=== PATIENT | male | born 1940 | race American Indian/Alaskan Native ===

== ENCOUNTER 2020-07-26 18:08 | Inpatient (IN) | payer MEDICARE ==
--- NOTE | 2020-07-26 18:30 | Emergency Department Report ---
ED Neuro Deficit HPI - General Stated Complaint: POSS STROKE Time Seen by Provider: 07/26/20 18:14 - History of Present Illness Initial Comments: Who presents with right-sided weakness and confusion. Patient was found by his neighbor in the car unresponsive so he called ambulance. Patient was there for 1 week his blood glucose was 30 when EMS got there they also heard some crackles on his lungs. Patient denies having any history of any stroke and he currently denies having any pain. - Related Data Allergies/Adverse Reactions: Allergies Allergy/AdvReac Type Severity Reaction Status Date / Time No Known Allergies Allergy Unverified 07/26/20 18:56 ED Review of Systems ROS: Stated complaint: POSS STROKE Other details as noted in HPI Constitutional: weakness. denies: chills, fever Eyes: denies: eye pain, eye discharge, vision change ENT: denies: ear pain, throat pain Respiratory: denies: cough, shortness of breath, wheezing Cardiovascular: denies: chest pain, palpitations Endocrine: no symptoms reported Gastrointestinal: denies: abdominal pain, nausea, diarrhea Genitourinary: denies: urgency, dysuria Musculoskeletal: denies: back pain, joint swelling, arthralgia Skin: denies: rash, lesions Neurological: denies: headache, weakness, paresthesias Psychiatric: denies: anxiety, depression Hematological/Lymphatic: denies: easy bleeding, easy bruising ED Neuro Physical Exam - General General appearance: alert, in no apparent distress Suspected Stroke: Yes - Head Head exam: Present: atraumatic, normocephalic - Eye Eye exam: Present: normal appearance - ENT ENT exam: Present: mucous membranes moist - Neck Neck exam: Present: normal inspection - Respiratory Respiratory exam: Present: normal lung sounds bilaterally. Absent: respiratory distress - Cardiovascular Cardiovascular Exam: Present: regular rate, normal rhythm. Absent: systolic murmur, diastolic murmur, rubs, gallop - GI/Abdominal GI/Abdominal exam: Present: soft, normal bowel sounds - Rectal Rectal exam: Present: deferred - Back Exam Back exam: Present: normal inspection - Neurological Exam Neurological exam: Present: alert, oriented X3 - NIHSS Assessment Interval: Baseline 1a. Level of Consciousness: alert/keenly responsive 1b. LOC Questions: answers 1 question correctly 1c. LOC Commands: performs no tasks correctly 2. Best Gaze: normal 3. Visual: complete hemianopia 4. Facial Palsy: unilateral complete paralysis 5b. Motor Arm Right: no gravity effort 5a. Motor Arm Left: no gravity effort 6a. Motor Leg Left: no drift 6b. Motor Leg Right: no gravity effort 7. Limb Ataxia: present 1 limb 8. Sensory: mild/moderate sensory loss 9. Best Language: no aphasia 10. Dysarthria: mild/moderate dysarthria 11. Extinction/Inattention: visual/tactile inattention Total Score: 21 Stroke Severity: Severe Stroke - Psychiatric Psychiatric exam: Present: normal affect, normal mood - Skin Skin exam: Present: warm, dry, intact, normal color. Absent: rash ED Course Vital Signs 07/26/20 07/26/20 07/26/20 18:56 18:57 19:45 Temperature Pulse Rate 118 H 118 H 73 Respiratory 27 H 27 H 24 Rate Blood Pressure 82/31 Blood Pressure 119/91 [Left] O2 Sat by Pulse 96 94 Oximetry 07/26/20 07/26/20 07/26/20 20:30 20:46 21:01 Temperature Pulse Rate 96 H Respiratory 27 H 21 Rate Blood Pressure 46/26 56/28 46/31 Blood Pressure [Left] O2 Sat by Pulse Oximetry 07/26/20 07/26/20 07/26/20 21:15 21:31 21:45 Temperature Pulse Rate 96 H 91 H 94 H Respiratory 26 H 23 16 Rate Blood Pressure 63/32 63/32 82/40 Blood Pressure [Left] O2 Sat by Pulse Oximetry 07/26/20 07/26/20 07/26/20 22:01 22:15 22:31 Temperature Pulse Rate 93 H 94 H 93 H Respiratory 22 21 22 Rate Blood Pressure 82/40 112/59 110/62 Blood Pressure [Left] O2 Sat by Pulse Oximetry 07/26/20 07/26/20 07/26/20 22:45 23:01 23:15 Temperature Pulse Rate 100 H 94 H 92 H Respiratory 22 22 22 Rate Blood Pressure 109/58 119/45 118/54 Blood Pressure [Left] O2 Sat by Pulse Oximetry 07/26/20 07/26/20 07/26/20 23:25 23:30 23:31 Temperature 97.6 F Pulse Rate 92 H 95 H Respiratory 19 21 Rate Blood Pressure 118/54 107/50 Blood Pressure [Left] O2 Sat by Pulse Oximetry 07/26/20 07/27/2021 23:45 00:01 00:08 Temperature Pulse Rate 93 H 91 H Respiratory 24 22 23 Rate Blood Pressure 98/59 108/49 Blood Pressure [Left] O2 Sat by Pulse Oximetry 07/27/20 07/27/20 00:15 00:31 Temperature Pulse Rate 93 H 98 H Respiratory 22 23 Rate Blood Pressure 100/54 108/48 Blood Pressure [Left] O2 Sat by Pulse Oximetry - Central Line Placement Right IJ Consent Obtained: emergent situation Prep: mask, gown, gloves Central Line Prep: Chlorhexidine scrub Ultrasound Used for Placement: No Central Line Lumen Inserted: triple Reason for Insertion: CV Pressure Monitoring Bloods Obtained for Lab: Yes Central Line Position: good blood return Dressing Applied: Tegaderm Post Procedure X-Ray: tip of catheter in good p Patient Tolerated Procedure: no complications Complications: none - Lab Data Result diagrams: 07/26/20 18:33 07/26/20 18:33 Lab Results 07/26/20 07/26/20 07/26/20 Range/Units 18:33 18:33 18:33 WBC 19.0 H (4.5-11.0) K/mm3 RBC 3.50 L (3.65-5.03) M/mm3 Hgb 12.1 (11.8-15.2) gm/dl Hct 37.0 (35.5-45.6) % MCV 106 H (84-94) fl MCH 35 H (28-32) pg MCHC 33 (32-34) % RDW 14.8 (13.2-15.2) % Plt Count 259 (140-440) K/mm3 Add Manual Diff Complete Total Counted 100 Seg Neutrophils % Casing Worker Seg Neuts % (Manual) 96.0 H (40.0-70.0) % Band Neutrophils % 1.0 % Lymphocytes % (Manual) 3.0 L (13.4-35.0) % Nucleated RBC % Not Reportable Seg Neutrophils # Man 18.2 H (1.8-7.7) K/mm3 Band Neutrophils # 0.2 K/mm3 Lymphocytes # (Manual) 0.6 L (1.2-5.4) K/mm3 Abs React Lymphs (Man) 0.0 K/mm3 Monocytes # (Manual) 0.0 (0.0-0.8) K/mm3 Eosinophils # (Manual) 0.0 (0.0-0.4) K/mm3 Basophils # (Manual) 0.0 (0.0-0.1) K/mm3 Metamyelocytes # 0.0 K/mm3 Myelocytes # 0.0 K/mm3 Promyelocytes # 0.0 K/mm3 Blast Cells # 0.0 K/mm3 WBC Morphology Not Reportable Hypersegmented Neuts Not Reportable Hyposegmented Neuts Not Reportable Hypogranular Neuts Not Reportable Smudge Cells Not Reportable Toxic Granulation Not Reportable Toxic Vacuolation Not Reportable Dohle Bodies Not Reportable Pelger-Huet Anomaly Not Reportable Patrica Rods Not Reportable Platelet Estimate Consistent w auto Clumped Platelets Not Reportable Plt Clumps, EDTA Not Reportable Large Platelets Not Reportable Giant Platelets Not Reportable Platelet Satelliting Not Reportable Plt Morphology Comment Not Reportable RBC Morphology Normal Dimorphic RBCs Not Reportable Polychromasia Not Reportable Hypochromasia Not Reportable Poikilocytosis Not Reportable Anisocytosis Not Reportable Microcytosis Not Reportable Macrocytosis Not Reportable Spherocytes Not Reportable Pappenheimer Bodies Not Reportable Sickle Cells Not Reportable Target Cells Not Reportable Tear Drop Cells Not Reportable Ovalocytes Not Reportable Helmet Cells Not Reportable [place] Bodies Not Reportable [place] Rings Not Reportable Momence Cells Not Reportable Bite Cells Not Reportable Crenated Cell Not Reportable Elliptocytes Not Reportable Acanthocytes (Spur) Not Reportable Rouleaux Not Reportable Hemoglobin C Crystals Not Reportable Schistocytes Not Reportable Malaria parasites Not Reportable Curtis Bodies Not Reportable Hem Pathologist Commnt No PT 22.9 H (12.2-14.9) Sec. INR 1.96 H (0.87-1.13) APTT 42.3 H (24.2-36.6) Sec. ABG pH (7.320-7.450) POC ABG pCO2 (32.0-48.0) mmHg POC ABG pO2 (83-108) mmHg POC ABG HCO3 ABG O2 Saturation (0-100) POC ABG Base Excess ABG Hemoglobin (12.0-17.5) ABG Oxyhemoglobin (94-98) ABG Methemoglobin (0.0-1.5) ABG Sodium (136.0-145.0) mmol/L ABG Potassium (3.40-4.50) mmol/L ABG Chloride (98-107) mmol/L ABG Glucose (65-95) mg/dL Carboxyhemoglobin (0.5-1.5) FiO2 % Sodium 127 L (137-145) mmol/L Potassium 6.0 H (3.6-5.0) mmol/L Chloride 88.4 L (98-107) mmol/L Carbon Dioxide 10 L (22-30) mmol/L Anion Gap 35 mmol/L BUN 84 H (9-20) mg/dL Creatinine 6.0 H (0.8-1.3) mg/dL Estimated GFR 11 ml/min BUN/Creatinine Ratio 14 % Glucose 157 H (75-100) mg/dL POC Glucose (70-105) mg/dL Lactic Acid (0.7-2.0) mmol/L Calcium 8.6 (8.4-10.2) mg/dL Total Bilirubin 0.90 (0.1-1.2) mg/dL AST 948 H (5-40) units/L ALT 292 H (7-56) units/L Alkaline Phosphatase 59 (35-129) units/L Troponin T (0.00-0.029) ng/mL Total Protein 5.2 L (6.3-8.2) g/dL Albumin 2.0 L (3.9-5) g/dL Albumin/Globulin Ratio 0.6 % Triglycerides (2-149) mg/dL Cholesterol (50-199) mg/dL LDL Cholesterol Direct (50-130) mg/dL HDL Cholesterol (40-59) mg/dL Cholesterol/HDL Ratio % Arterial Blood Glucose (65-95) mg/dL Arterial Blood Ionized Calcium (4.6-5.3) mg/dL 07/26/20 07/26/20 07/26/20 Range/Units 18:33 19:16 20:14 WBC (4.5-11.0) K/mm3 RBC (3.65-5.03) M/mm3 Hgb (11.8-15.2) gm/dl Hct (35.5-45.6) % MCV (84-94) fl MCH (28-32) pg MCHC (32-34) % RDW (13.2-15.2) % Plt Count (140-440) K/mm3 Add Manual Diff Total Counted Seg Neutrophils % Seg Neuts % (Manual) (40.0-70.0) % Band Neutrophils % % Lymphocytes % (Manual) (13.4-35.0) % Nucleated RBC % Seg Neutrophils # Man (1.8-7.7) K/mm3 Band Neutrophils # K/mm3 Lymphocytes # (Manual) (1.2-5.4) K/mm3 Abs React Lymphs (Man) K/mm3 Monocytes # (Manual) (0.0-0.8) K/mm3 Eosinophils # (Manual) (0.0-0.4) K/mm3 Basophils # (Manual) (0.0-0.1) K/mm3 Metamyelocytes # K/mm3 Myelocytes # K/mm3 Promyelocytes # K/mm3 Blast Cells # K/mm3 WBC Morphology Hypersegmented Neuts Hyposegmented Neuts Hypogranular Neuts Smudge Cells Toxic Granulation Toxic Vacuolation Dohle Bodies Pelger-Huet Anomaly Patrica Rods Platelet Estimate Clumped Platelets Plt Clumps, EDTA Large Platelets Giant Platelets Platelet Satelliting Plt Morphology Comment RBC Morphology Dimorphic RBCs Polychromasia Hypochromasia Poikilocytosis Anisocytosis Microcytosis Macrocytosis Spherocytes Pappenheimer Bodies Sickle Cells Target Cells Tear Drop Cells Ovalocytes Helmet Cells [place] Bodies [place] Rings Momence Cells Bite Cells Crenated Cell Elliptocytes Acanthocytes (Spur) Rouleaux Hemoglobin C Crystals Schistocytes Malaria parasites Curtis Bodies Hem Pathologist Commnt PT (12.2-14.9) Sec. INR (0.87-1.13) APTT (24.2-36.6) Sec. ABG pH 7.182 L (7.320-7.450) POC ABG pCO2 29.7 L (32.0-48.0) mmHg POC ABG pO2 28.5 L (83-108) mmHg POC ABG HCO3 10.9 ABG O2 Saturation 36.3 (0-100) POC ABG Base Excess -16.0 ABG Hemoglobin 14.1 (12.0-17.5) ABG Oxyhemoglobin 36.0 L (94-98) ABG Methemoglobin 0.6 (0.0-1.5) ABG Sodium 130.1 L (136.0-145.0) mmol/L ABG Potassium 5.4 H (3.40-4.50) mmol/L ABG Chloride 96.0 L (98-107) mmol/L ABG Glucose 72 (65-95) mg/dL Carboxyhemoglobin 0.3 L (0.5-1.5) FiO2 % 100.0 Sodium (137-145) mmol/L Potassium (3.6-5.0) mmol/L Chloride (98-107) mmol/L Carbon Dioxide (22-30) mmol/L Anion Gap mmol/L BUN (9-20) mg/dL Creatinine (0.8-1.3) mg/dL Estimated GFR ml/min BUN/Creatinine Ratio % Glucose (75-100) mg/dL POC Glucose (70-105) mg/dL Lactic Acid 13.00 H* (0.7-2.0) mmol/L Calcium (8.4-10.2) mg/dL Total Bilirubin (0.1-1.2) mg/dL AST (5-40) units/L ALT (7-56) units/L Alkaline Phosphatase (35-129) units/L Troponin T 0.113 H* (0.00-0.029) ng/mL Total Protein (6.3-8.2) g/dL Albumin (3.9-5) g/dL Albumin/Globulin Ratio % Triglycerides 173 H (2-149) mg/dL Cholesterol 87 (50-199) mg/dL LDL Cholesterol Direct 36 L (50-130) mg/dL HDL Cholesterol 28 L (40-59) mg/dL Cholesterol/HDL Ratio 3.10 % Arterial Blood Glucose 72 (65-95) mg/dL Arterial Blood Ionized Calcium 4.5 L (4.6-5.3) mg/dL 07/26/20 07/26/20 07/26/20 Range/Units 21:02 21:07 23:03 WBC (4.5-11.0) K/mm3 RBC (3.65-5.03) M/mm3 Hgb (11.8-15.2) gm/dl Hct (35.5-45.6) % MCV (84-94) fl MCH (28-32) pg MCHC (32-34) % RDW (13.2-15.2) % Plt Count (140-440) K/mm3 Add Manual Diff Total Counted Seg Neutrophils % Seg Neuts % (Manual) (40.0-70.0) % Band Neutrophils % % Lymphocytes % (Manual) (13.4-35.0) % Nucleated RBC % Seg Neutrophils # Man (1.8-7.7) K/mm3 Band Neutrophils # K/mm3 Lymphocytes # (Manual) (1.2-5.4) K/mm3 Abs React Lymphs (Man) K/mm3 Monocytes # (Manual) (0.0-0.8) K/mm3 Eosinophils # (Manual) (0.0-0.4) K/mm3 Basophils # (Manual) (0.0-0.1) K/mm3 Metamyelocytes # K/mm3 Myelocytes # K/mm3 Promyelocytes # K/mm3 Blast Cells # K/mm3 WBC Morphology Hypersegmented Neuts Hyposegmented Neuts Hypogranular Neuts Smudge Cells Toxic Granulation Toxic Vacuolation Dohle Bodies Pelger-Huet Anomaly Patrica Rods Platelet Estimate Clumped Platelets Plt Clumps, EDTA Large Platelets Giant Platelets Platelet Satelliting Plt Morphology Comment RBC Morphology Dimorphic RBCs Polychromasia Hypochromasia Poikilocytosis Anisocytosis Microcytosis Macrocytosis Spherocytes Pappenheimer Bodies Sickle Cells Target Cells Tear Drop Cells Ovalocytes Helmet Cells [place] Bodies [place] Rings Reggie Cells Bite Cells Crenated Cell Elliptocytes Acanthocytes (Spur) Rouleaux Hemoglobin C Crystals Schistocytes Malaria parasites Curtis Bodies Hem Pathologist Commnt PT (12.2-14.9) Sec. INR (0.87-1.13) APTT (24.2-36.6) Sec. ABG pH (7.320-7.450) POC ABG pCO2 (32.0-48.0) mmHg POC ABG pO2 (83-108) mmHg POC ABG HCO3 ABG O2 Saturation (0-100) POC ABG Base Excess ABG Hemoglobin (12.0-17.5) ABG Oxyhemoglobin (94-98) ABG Methemoglobin (0.0-1.5) ABG Sodium (136.0-145.0) mmol/L ABG Potassium (3.40-4.50) mmol/L ABG Chloride (98-107) mmol/L ABG Glucose (65-95) mg/dL Carboxyhemoglobin (0.5-1.5) FiO2 % Sodium (137-145) mmol/L Potassium (3.6-5.0) mmol/L Chloride (98-107) mmol/L Carbon Dioxide (22-30) mmol/L Anion Gap mmol/L BUN (9-20) mg/dL Creatinine (0.8-1.3) mg/dL Estimated GFR ml/min BUN/Creatinine Ratio % Glucose (75-100) mg/dL POC Glucose 85 (70-105) mg/dL Lactic Acid 8.90 H* 3.40 H* (0.7-2.0) mmol/L Calcium (8.4-10.2) mg/dL Total Bilirubin (0.1-1.2) mg/dL AST (5-40) units/L ALT (7-56) units/L Alkaline Phosphatase (35-129) units/L Troponin T (0.00-0.029) ng/mL Total Protein (6.3-8.2) g/dL Albumin (3.9-5) g/dL Albumin/Globulin Ratio % Triglycerides (2-149) mg/dL Cholesterol (50-199) mg/dL LDL Cholesterol Direct (50-130) mg/dL HDL Cholesterol (40-59) mg/dL Cholesterol/HDL Ratio % Arterial Blood Glucose (65-95) mg/dL Arterial Blood Ionized Calcium (4.6-5.3) mg/dL 07/27/20 Range/Units 00:52 WBC (4.5-11.0) K/mm3 RBC (3.65-5.03) M/mm3 Hgb (11.8-15.2) gm/dl Hct (35.5-45.6) % MCV (84-94) fl MCH (28-32) pg MCHC (32-34) % RDW (13.2-15.2) % Plt Count (140-440) K/mm3 Add Manual Diff Total Counted Seg Neutrophils % Seg Neuts % (Manual) (40.0-70.0) % Band Neutrophils % % Lymphocytes % (Manual) (13.4-35.0) % Nucleated RBC % Seg Neutrophils # Man (1.8-7.7) K/mm3 Band Neutrophils # K/mm3 Lymphocytes # (Manual) (1.2-5.4) K/mm3 Abs React Lymphs (Man) K/mm3 Monocytes # (Manual) (0.0-0.8) K/mm3 Eosinophils # (Manual) (0.0-0.4) K/mm3 Basophils # (Manual) (0.0-0.1) K/mm3 Metamyelocytes # K/mm3 Myelocytes # K/mm3 Promyelocytes # K/mm3 Blast Cells # K/mm3 WBC Morphology Hypersegmented Neuts Hyposegmented Neuts Hypogranular Neuts Smudge Cells Toxic Granulation Toxic Vacuolation Dohle Bodies Pelger-Huet Anomaly Patrica Rods Platelet Estimate Clumped Platelets Plt Clumps, EDTA Large Platelets Giant Platelets Platelet Satelliting Plt Morphology Comment RBC Morphology Dimorphic RBCs Polychromasia Hypochromasia Poikilocytosis Anisocytosis Microcytosis Macrocytosis Spherocytes Pappenheimer Bodies Sickle Cells Target Cells Tear Drop Cells Ovalocytes Helmet Cells [place] Bodies [place] Rings Reggie Cells Bite Cells Crenated Cell Elliptocytes Acanthocytes (Spur) Rouleaux Hemoglobin C Crystals Schistocytes Malaria parasites Curtis Bodies Hem Pathologist Commnt PT (12.2-14.9) Sec. INR (0.87-1.13) APTT (24.2-36.6) Sec. ABG pH (7.320-7.450) POC ABG pCO2 (32.0-48.0) mmHg POC ABG pO2 (83-108) mmHg POC ABG HCO3 ABG O2 Saturation (0-100) POC ABG Base Excess ABG Hemoglobin (12.0-17.5) ABG Oxyhemoglobin (94-98) ABG Methemoglobin (0.0-1.5) ABG Sodium (136.0-145.0) mmol/L ABG Potassium (3.40-4.50) mmol/L ABG Chloride (98-107) mmol/L ABG Glucose (65-95) mg/dL Carboxyhemoglobin (0.5-1.5) FiO2 % Sodium (137-145) mmol/L Potassium (3.6-5.0) mmol/L Chloride (98-107) mmol/L Carbon Dioxide (22-30) mmol/L Anion Gap mmol/L BUN (9-20) mg/dL Creatinine (0.8-1.3) mg/dL Estimated GFR ml/min BUN/Creatinine Ratio % Glucose (75-100) mg/dL POC Glucose (70-105) mg/dL Lactic Acid 2.80 H* (0.7-2.0) mmol/L Calcium (8.4-10.2) mg/dL Total Bilirubin (0.1-1.2) mg/dL AST (5-40) units/L ALT (7-56) units/L Alkaline Phosphatase (35-129) units/L Troponin T (0.00-0.029) ng/mL Total Protein (6.3-8.2) g/dL Albumin (3.9-5) g/dL Albumin/Globulin Ratio % Triglycerides (2-149) mg/dL Cholesterol (50-199) mg/dL LDL Cholesterol Direct (50-130) mg/dL HDL Cholesterol (40-59) mg/dL Cholesterol/HDL Ratio % Arterial Blood Glucose (65-95) mg/dL Arterial Blood Ionized Calcium (4.6-5.3) mg/dL - EKG Data -: EKG Interpreted by Me 07/27/20 01:04 EKG shows rate 95 sinus rhythm left anterior fascicular block nonspecific T wave abnormality time 9:08 - Radiology Data Radiology results: report reviewed, image reviewed CT head: Shows no acute abnormality CT angio head and neck: Shows severe atherosclerotic disease. - Medical Decision Making Cdx: Ischemic stroke ddx: Sepsis, Panceratitis, Hemoraghic stroke We will get CT scan of head blood work will place patient on central line will give pressors Place patient on BiPAP and will reevaluate the patient. - Core Measures AMI Core Measures Followed: Yes Measure Exclusions: not indicated - Thrombolytic Inclusion/Exclusion Thrombolytic Exclusion Criteria: Onset of Symptoms Unknown Thrombolytic Inclusion Criteria: Ischemic Stroke Onset< 3h, Negative CT Scan for ICH Thrombolytic Contraindications: OH Included Pericarditis, INR > 1.7 seconds, Heparin/48 & High PTT Critical Care Time: Yes (240) Critical care attestation.: If time is entered above; I have spent that time in minutes in the direct care of this critically ill patient, excluding procedure time. ED Disposition Clinical Impression: Ischemic stroke, CRISTIAN (acute kidney injury), Hypoglycemia Sepsis Qualifiers: Sepsis type: sepsis due to unspecified organism Sepsis acute organ dysfunction status: unspecified Qualified Code(s): A41.9 - Sepsis, unspecified organism Disposition: 09 OP ADMIT IP TO THIS HOSP Is pt being admited?: Yes Does the pt Need Aspirin: Yes Condition: Stable Referrals: PRIMARY CARE, [Primary Care Provider] - 3-5 Days Forms: Work/School Release Form(ED)
[2020-07-26 18:39] LABS: Hemoglobin 12.1 gm/dl (11.8-15.2); Mean Corpuscular HGB Conc 33 % (32-34); Mean Corpuscular Volume 106 fl (84-94); Platelet Count 259 K/mm3 (140-440); Red Cell Distribution Width 14.8 % (13.2-15.2)
--- NOTE | 2020-07-26 18:45 | Cat Scan Report ---
CT head/brain wo con INDICATION / CLINICAL INFORMATION: 80 years Male; stroke. TECHNIQUE: Routine CT head without contrast. All CT scans at this location are performed using CT dos e reduction for ALARA by means of automated exposure control. COMPARISON: None. FINDINGS: BRAIN / INTRACRANIAL CONTENTS: The motion significant degrades the image quality despite repeat imagi ng. However, there appears be moderate cerebral white matter disease most consistent with microvascul ar angiopathy at. There is also moderate cerebral atrophy with associated prominence of the ventricul ar system. There is no clear CT evidence of acute intracranial hemorrhage or significant mass effect. ORBITS: No significant abnormality of visualized orbits. SINUSES / MASTOIDS: There is mild focal opacification along the posterior left maxillary sinus. CRANIOCERVICAL JUNCTION: No significant abnormality. ADDITIONAL FINDINGS: None. IMPRESSION: 1. The study is limited by motion. 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 The study was specified as code stroke and called emergently to Dr. May arthropathy without neural foraminal in the ER at 5:38 PM Central standard time. Signer Name: Chato Evans MD Signed: 07/26/2020 6:40 PM Workstation Name: [id number]
[2020-07-26 18:52] LABS: INR 1.96 (0.87-1.13)
[2020-07-26 18:53] LABS: Partial Thromboplastin Time 42.3 Sec. (24.2-36.6)
[2020-07-26] MEDS ORDERED: ALBUTEROL 2.5 MG/3 ML NEBU IH ONE (18:54)
--- NOTE | 2020-07-26 18:54 | Consultation ---
History of Present Illness History of present illness: [facility] Consult Note # Demographics Consult Type: Acute Stroke Level 1 (0-4.5 hrs) Patient Location: Emergency Room First Name: Luis Antonio Last Name: Geoff Date of : 1940 Age: 80 Gender: Male Time of Initial Page (): 07/26/2020, 18:11 Time of Return Call ( Time): 07/26/2020, 18:12 # HPI History: 80M with HTN, DM, prior stroke found by neighbors in car, unresponsive. Has been there for a week. Glucose 31 on arrival by EMS. Found to have slurred speech and right-sided weakness. Unknown last known well time. # Scores Time of exam and NIHSS (): 07/26/2020, 18:21 Level of Consciousness 1a: [0] = Alert; keenly responsive LOC Questions 1b: [1] = Answers one correctly LOC Commands 1c: [1] = Performs one correctly Best Gaze 2: [0] = Normal Visual 3: [2] = Complete hemianopia Facial Palsy 4: [2] = Partial paralysis Motor Arm Left 5a: [2] = Some effort against gravity Motor Arm Right 5b: [2] = Some effort against gravity Motor Leg Left 6a: [3] = No effort against gravity Motor Leg Right 6b: [3] = No effort against gravity Limb Ataxia 7: [0] = Absent Sensory 8: [1] = [id number] sensory loss Best Language 9: [1] = [id number]-ymbaprws aphasia Dysarthria 10: [1] = [id number] dysarthria Extinction and Inattention 11: [2] = Profound chloé-inattention or extinction to more than one modality NIHSS Total: 21 # Data Time Head CT personally read by me (): 07/26/2020, 18:[address]: no bleed preliminarily reviewed by me, please refer to radiology read for official reading CTA Head: no large vessel occlusion preliminarily reviewed by me, please refer to radiology read for official reading CTA Neck: patent vessels preliminarily reviewed by me, please refer to radiology read for official reading # Assessment Impression: Ischemic Stroke (Acute) # Plan Thrombolytic/Intervention: NOT IV Thrombolytic or IA Intervention Thrombolytic Exclusion: > 4.5 hours Intraarterial Exclusion: no large vessel occlusion (LVO) Target Blood Pressure: SBP < 220 DBP < 105 Labs: hemoglobin A1c lipid panel Imaging: (urgency: routine): MRI Brain without contrast Diagnostic Test: echo without bubble study Therapy/Evaluation: PT/OT evaluation speech/swallow consultation Medication: ASA 325 then 81 daily, atorvastatin 80 and tailor daily dose to LDL < 70 goal DVT Prophylaxis: SCD chemical DVT prophylaxis Other: permissive hypertension telemetry monitoring I have discussed my recommendations with the referring provider Disposition: admit # Logistics Telemedicine: Interactive 2 way audio and visual telecommunication technology was utilized during this visit Electronically signed at 07/26/2020 18:54 (Eastern Time) by Brigido Hsu MD Results - Laboratory Findings CBC and BMP: 07/26/20 18:33 Abnormal Lab Findings: Abnormal Labs 07/26/20 07/26/20 18:33 18:33 WBC 19.0 H RBC 3.50 L MCV 106 H MCH 35 H PT 22.9 H INR 1.96 H APTT 42.3 H
[2020-07-26 18:55] LABS: Calcium 8.6 mg/dL (8.4-10.2)
[2020-07-26 19:11] LABS: Chol/HDL Ratio 3.1 %
--- NOTE | 2020-07-26 19:19 | Cat Scan Report ---
CT angio neck INDICATION / CLINICAL INFORMATION: 80 years Male; stroke AMS OMNIPAQUE 350 100ML. TECHNIQUE: Thin cut axial images obtained through the head during IV bolus contrast administration. S agittal, coronal, and 3 plane MIP reconstructions performed by the technologist. NASCET type criteria used evaluate stenoses. All CT scans at this location are performed using CT dose reduction for ALAR A by means of automated exposure control. COMPARISON: None available. FINDINGS: CAROTID ARTERIES: The motion and beam hardening significantly degrades the image quality. Unfortunate ly, the findings are particularly involving the carotid bifurcations. However, there is notable ather osclerotic calcification extending into the proximal left ICA. The degree of stenosis would be diffic ult to quantitate given the degree of motion. However, there appears be marked stenosis along the reg ion of the distal left carotid bulb. There is more moderate to stenosis proximally. The atherosclerotic plaque involving proximal right ICA results in milder degree of stenosis which ap pears to measure less than 50%. VERTEBRAL ARTERIES: There is no significant focal stenosis involving vertebral arteries at. ARCH: There is atherosclerotic calcification involving arch vessels. However, there is no significant narrowing of the origins. ADDITIONAL FINDINGS: Remainder of the surrounding soft tissues are grossly normal. IMPRESSION: The study is limited by motion. However, the atherosclerotic calcification involving proximal left IC A appears to result in moderate to marked stenosis by NASCET criteria as detailed above. There is also calcified plaque involving proximal right ICA with mild degree of stenosis. Signer Name: Chato Evans MD Signed: 07/26/2020 7:14 PM Workstation Name: [id number]
--- NOTE | 2020-07-26 19:23 | Cat Scan Report ---
CT angio head INDICATION / CLINICAL INFORMATION: 80 years Male; stroke. TECHNIQUE: Thin cut axial images obtained through the head during IV bolus contrast administration. S agittal, coronal, and 3 plane MIP reconstructions performed by the technologist. NASCET type criteria used evaluate stenoses. Automated exposure control utilized for radiation reduction purposes. COMPARISON: None available. FINDINGS: INTERNAL CAROTID ARTERIES: There is somewhat small caliber of the internal carotid arteries which josué ears to be developing mental. This lesion, there is atherosclerotic calcification which results in mi ld narrowing involving the cavernous and right ophthalmic segments at. VERTEBROBASILAR SYSTEM: There is also relative hypoplasia of the vertebrobasilar system. However, no significant focal stenosis is appreciated. CEREBRAL ARTERIES: There is no significant focal stenosis involving proximal cerebral arteries or adj acent segments. There is no clear CT evidence of large vessel occlusion. ANEURYSM: None identified. ADDITIONAL FINDINGS: Remainder of the surrounding soft tissues are grossly normal. IMPRESSION: There is atherosclerotic calcification involving distal internal carotid arteries with mild segmental narrowing as described. There is no clear CT evidence of large vessel occlusion Signer Name: Chato Evans MD Signed: 07/26/2020 7:19 PM Workstation Name: [id number]
--- NOTE | 2020-07-26 19:41 | XRay Report ---
CHEST 1 VIEW 07/26/2020 6:53 PM INDICATION / CLINICAL INFORMATION: sob. COMPARISON: None available. FINDINGS: SUPPORT DEVICES: None. HEART / MEDIASTINUM: Mild aortic arch atherosclerotic calcification. Cardiac silhouette is within nor mal limits. No significant hilar or mediastinal contour abnormality. LUNGS / PLEURA: No significant pulmonary or pleural abnormality. No pneumothorax. ADDITIONAL FINDINGS: No significant additional findings. IMPRESSION: 1. No acute findings. Signer Name: Gui Gatica MD Signed: 07/26/2020 7:36 PM Workstation Name: [id number]
[2020-07-26 19:42] LABS: Band Neutrophils # (Manual) 0.2 K/mm3; Total Cells Counted 100
[2020-07-26 19:43] LABS: Platelet Estimate Consistent w Auto; RBC Morphology Normal
[2020-07-26] MEDS ORDERED: VANCOMYCIN/NS 1 GM/250 ML 1 GM/250 ML BAG IV ONE (20:22)
[2020-07-26] MEDS ORDERED: DEXTROSE 50% IN WATER (25GM) 50 ML SYRINGE IV ONE (20:22)
[2020-07-26] MEDS ORDERED: PIPERACILLIN/TAZOBACTAM 3.375 3.375 GM/50 ML BAG IV ONE (20:23)
[2020-07-26] MEDS ORDERED: SODIUM CHLORIDE 0.9% 1000 ML 1,000 ML IV ONE ×2 (20:24→20:25)
[2020-07-26] MEDS ORDERED: SODIUM BICARBONATE 150 MEQ in DEXTROSE 5% IN WATER 1,000 ML IV ONE (20:26)
[2020-07-26] MEDS ORDERED: NORepinephrine/NS 4 MG-250 ML 0 MG/0 ML BAG IV ONE (20:27)
--- NOTE | 2020-07-26 20:57 | XRay Report ---
CHEST 1 VIEW 07/26/2020 8:29 PM INDICATION / CLINICAL INFORMATION: s/p central line. COMPARISON: 07/26/2020 FINDINGS: SUPPORT DEVICES: Interval placement of right-sided central venous catheter with tip at the distal SVC . HEART / MEDIASTINUM: Stable. LUNGS / PLEURA: No significant pulmonary or pleural abnormality. No pneumothorax. ADDITIONAL FINDINGS: No significant additional findings. IMPRESSION: 1. Interval placement of right-sided central venous catheter with tip at the distal SVC. No evidence of acute complication. Signer Name: Gui Gatica MD Signed: 07/26/2020 8:53 PM Workstation Name: [id number]
[2020-07-26] MEDS: NORepinephrine/NS 8 MG-250 ML 8 MG/250 ML INFUS..BTL IV SCH (21:11)
[2020-07-27 02:16] LABS: Bacteria,Urine 2+ /HPF (Negative); Bilirubin,Urine NEG (Negative); Blood,Urine LG (Negative); Color,Urine Amber (Yellow); Urobilinogen,Urine < 2.0 mg/dL (<2.0)
[2020-07-27 02:17] LABS: WBC,Urine > 182.0 /HPF (0.0-6.0)
--- NOTE | 2020-07-27 02:24 | Cat Scan Report ---
CT CHEST, ABDOMEN AND PELVIS WITHOUT IV CONTRAST INDICATION: Sepsis TECHNIQUE: Multiple axial CT images of the chest, abdomen and pelvis were acquired. Sagittal and ny nal reformats were obtained. All CT performed at this facility utilize dose reduction techniques inc luding automated exposure control, iterative reconstruction and weight based dosing when appropriate to reduce patient radiation dose to as low as reasonably achievable. COMPARISON: No relevant prior studies are available for comparison FINDINGS: CHEST: The heart is normal in size. The thoracic aorta is normal in caliber with scattered atheroscle rotic calcifications. Evaluation of the lung parenchyma demonstrates no airspace disease or pleural e ffusion Abdomen: The liver, gallbladder, spleen, stomach, pancreas, bilateral adrenal glands and bilateral ki dneys show no evidence of acute abnormality. There is mild nonspecific perinephric stranding. There i s dense atherosclerotic calcification of the abdominal aorta without evidence for aneurysm. There is no evidence of bowel obstruction. The appendix is not clearly identified but no pericecal inflammator y changes are noted. There is moderate colonic diverticulosis without definitive evidence for diverti culitis. Pelvis: There is moderate sigmoid diverticulosis. Contrast is noted within the urinary bladder from r ecent contrasted study. No free pelvic fluid is seen. Bones and Soft Tissues: Evaluation of bony structures demonstrates no evidence of acute bony abnormal ity. Evaluation of soft tissue structures demonstrates no evidence of focal soft tissue abnormality. IMPRESSION: 1. No evidence of acute pleural or parenchymal abnormality within the chest. 2. No evidence of acute inflammatory or obstructive process within the abdomen or pelvis. Signer Name: Stacy Rodrigez MD Signed: 07/27/2020 2:19 AM Workstation Name: [id number]
[2020-07-27] MEDS ORDERED: PROMETHAZINE 25 MG RECT SUPP PR PRN (03:12)
[2020-07-27] MEDS ORDERED: MORPHINE 2 MG/1 ML INJ IV PRN (03:12)
[2020-07-27] MEDS ORDERED: ACETAMINOPHEN 325 MG TAB PO PRN ×2 (03:12)
[2020-07-27] MEDS ORDERED: METOCLOPRAMIDE 10 MG TAB PO PRN (03:12)
[2020-07-27] MEDS ORDERED: MAGNESIUM HYDROXIDE (MOM) ORAL LIQD UDC PO PRN (03:12)
[2020-07-27] MEDS ORDERED: ONDANSETRON 4 MG/2 ML INJ IV PRN ×2 (03:12)
[2020-07-27] MEDS ORDERED: SODIUM CHLORIDE 0.9% 1000 ML 1,000 ML IV SCH ×2 (03:15→22:30)
--- NOTE | 2020-07-27 03:28 | History and Physical Report ---
History of Present Illness Date of examination: 07/27/20 Date of admission: 07/27/20 02:08 Chief complaint: Altered mental status Right-sided weakness History of present illness: 80-year-old male brought into the emergency room today with right-sided weakness and changes in mental status. Was said to have been found by his neighbor in his car unresponsive and therefore EMS was called. Upon arrival of EMS blood glucose was said to be about 30. Blood pressure was also said to be low with systolic in the 70s and arriving in the emergency room and IV fluid. Upon arrival in the emergency room was more responsive and was on BiPAP. Work-up in the emergency room reveals white count of 19, lactic acid of 13. Chest x-ray was unremarkable. CT scan of the head and CT angiogram was unremarkable. BUN and creatinine were 84 and 6.0 respectively. Troponin was bu mped at 0.113. Liver enzymes were also significantly elevated. Creatinine kinase was 3551. Urinalysis however indicates UTI. Patient is being admitted for multiple medical problems including right-sided weakness, sepsis possibly secondary to UTI, hypoglycemia, rhabdomyolysis, transaminitis, and acute renal failure. Past History Past Medical History: other (Unknown) Past Surgical History: Other (Unknown) Social history: other (Unknown) Family history: other (Unknown) Medications and Allergies Allergies Allergy/AdvReac Type Severity Reaction Status Date / Time No Known Allergies Allergy Unverified 07/26/20 18:56 Active Meds: Active Medications Acetaminophen (Acetaminophen 325 Mg Tab) 650 mg PO Q4H PRN PRN Reason: Pain, Mild (1-3) Acetaminophen (Acetaminophen 325 Mg Tab) 650 mg PO Q6H PRN PRN Reason: Pain MILD(1-3)/Fever >100.5/LOWERY Aspirin (Aspirin 325 Mg Tab) 325 mg PO QDAY VALERI Bisacodyl (Bisacodyl 10 Mg Rect Supp) 10 mg [place] QDAY PRN PRN Reason: Constipation Dextrose (Dextrose 50% In Water (25gm) 50 Ml Syringe) 50 ml IV Q30MIN PRN; Protocol PRN Reason: Hypoglycemia Heparin Sodium (Porcine) (Heparin 5,000 Unit/1 Ml Vial) 5,000 unit SUB-Q Q12HR VALERI NORepinephrine/NS 8 MG-250 ML (Norepinephrine/Ns 8 Mg-250 Ml (Double Conc)) 8 mg in 250 mls @ 3.75 mls/hr IV TITRATE VALERI; Protocol Last Titration: 07/27/20 00:30 Dose: 8 mcg/min, 15 mls/hr Documented by: Sodium Bicarbonate 150 meq/ (Dextrose) 1,150 mls @ 75 mls/hr IV DIRECT ONE Stop: 07/27/20 11:45 Last Admin: 07/26/20 21:40 Dose: 75 mls/hr Documented by: Sodium Chloride (Nacl 0.9% 1000 Ml) 1,000 mls @ 125 mls/hr IV DIRECT VALERI Insulin Human Lispro (Insulin Lispro 100 Unit/Ml) 0 unit SUB-Q ACHS VALERI; Protocol Magnesium Hydroxide (Magnesium Hydroxide (Mom) Oral Liqd Udc) 30 ml PO Q4H PRN PRN Reason: Constipation Metoclopramide HCl (Metoclopramide 10 Mg Tab) 5 mg PO Q6H PRN PRN Reason: Nausea And Vomiting Morphine Sulfate (Morphine 2 Mg/1 Ml Inj) 2 mg IV Q4H PRN PRN Reason: Pain, Moderate (4-6) Ondansetron HCl (Ondansetron 4 Mg/2 Ml Inj) 4 mg IV Q8H PRN PRN Reason: Nausea And Vomiting Ondansetron HCl (Ondansetron 4 Mg/2 Ml Inj) 4 mg IV Q8H PRN PRN Reason: Nausea And Vomiting Promethazine HCl (Promethazine 25 Mg Rect Supp) 25 mg [place] Q6H PRN PRN Reason: Nausea And Vomiting Sodium Chloride (Sodium Chloride 0.9% 10 Ml Flush Syringe) 10 ml IV BID VALERI Sodium Chloride (Sodium Chloride 0.9% 10 Ml Flush Syringe) 10 ml IV PRN PRN PRN Reason: LINE FLUSH Sodium Chloride (Sodium Chloride 0.9% 10 Ml Flush Syringe) 10 ml IV BID VALERI Sodium Chloride (Sodium Chloride 0.9% 10 Ml Flush Syringe) 10 ml IV PRN PRN PRN Reason: LINE FLUSH Review of Systems ROS unobtainable: due to mental status Exam - Constitutional Vitals: Temp Pulse Resp BP Pulse Ox 97.6 F 98 H 23 108/48 94 07/26/20 23:30 07/27/20 00:31 07/27/20 00:31 07/27/20 00:31 07/26/20 18:57 General appearance: Present: no acute distress, obese - EENT Eyes: Present: PERRL, EOM intact ENT: hearing intact, clear oral mucosa, dentition normal - Neck Neck: Present: supple, normal ROM - Respiratory Respiratory effort: normal Respiratory: bilateral: CTA - Cardiovascular Rhythm: regular Heart Sounds: Present: S1 & S2. Absent: gallop, systolic murmur, diastolic murmur, rub, click - Extremities Extremities: no ischemia, pulses intact, pulses symmetrical, No edema, Full ROM Peripheral Pulses: within normal limits - Abdominal General gastrointestinal: Present: soft, non-tender, non-distended, normal bowel sounds. Absent: mass - Integumentary Integumentary: Present: clear, warm, dry. Absent: rash - Musculoskeletal Musculoskeletal: strength equal bilaterally - Psychiatric Psychiatric: cooperative - Neurologic Neurologic: CNII-XII intact, no focal deficits, moves all extremities HEART Score - HEART Score Troponin: Troponin T 0.113 ng/mL (0.00-0.029) H* 07/26/20 18:33 Results - Labs CBC & Chem 7: 07/26/20 18:33 07/26/20 18:33 Labs: Abnormal lab results 07/26/20 07/26/20 07/26/20 Range/Units 18:33 18:33 18:33 WBC 19.0 H (4.5-11.0) K/mm3 RBC 3.50 L (3.65-5.03) M/mm3 MCV 106 H (84-94) fl MCH 35 H (28-32) pg Seg Neuts % (Manual) 96.0 H (40.0-70.0) % Lymphocytes % (Manual) 3.0 L (13.4-35.0) % Seg Neutrophils # Man 18.2 H (1.8-7.7) K/mm3 Lymphocytes # (Manual) 0.6 L (1.2-5.4) K/mm3 PT 22.9 H (12.2-14.9) Sec. INR 1.96 H (0.87-1.13) APTT 42.3 H (24.2-36.6) Sec. ABG pH (7.320-7.450) POC ABG pCO2 (32.0-48.0) mmHg POC ABG pO2 (83-108) mmHg ABG Oxyhemoglobin (94-98) ABG Sodium (136.0-145.0) mmol/L ABG Potassium (3.40-4.50) mmol/L ABG Chloride (98-107) mmol/L Carboxyhemoglobin (0.5-1.5) Sodium 127 L (137-145) mmol/L Potassium 6.0 H (3.6-5.0) mmol/L Chloride 88.4 L (98-107) mmol/L Carbon Dioxide 10 L (22-30) mmol/L BUN 84 H (9-20) mg/dL Creatinine 6.0 H (0.8-1.3) mg/dL Glucose 157 H (75-100) mg/dL Lactic Acid (0.7-2.0) mmol/L AST 948 H (5-40) units/L ALT 292 H (7-56) units/L Troponin T (0.00-0.029) ng/mL Total Protein 5.2 L (6.3-8.2) g/dL Albumin 2.0 L (3.9-5) g/dL Triglycerides (2-149) mg/dL LDL Cholesterol Direct (50-130) mg/dL HDL Cholesterol (40-59) mg/dL Arterial Blood Ionized Calcium (4.6-5.3) mg/dL Urine WBC (Auto) (0.0-6.0) /HPF 07/26/20 07/26/20 07/26/20 Range/Units 18:33 19:16 20:14 WBC (4.5-11.0) K/mm3 RBC (3.65-5.03) M/mm3 MCV (84-94) fl MCH (28-32) pg Seg Neuts % (Manual) (40.0-70.0) % Lymphocytes % (Manual) (13.4-35.0) % Seg Neutrophils # Man (1.8-7.7) K/mm3 Lymphocytes # (Manual) (1.2-5.4) K/mm3 PT (12.2-14.9) Sec. INR (0.87-1.13) APTT (24.2-36.6) Sec. ABG pH 7.182 L (7.320-7.450) POC ABG pCO2 29.7 L (32.0-48.0) mmHg POC ABG pO2 28.5 L (83-108) mmHg ABG Oxyhemoglobin 36.0 L (94-98) ABG Sodium 130.1 L (136.0-145.0) mmol/L ABG Potassium 5.4 H (3.40-4.50) mmol/L ABG Chloride 96.0 L (98-107) mmol/L Carboxyhemoglobin 0.3 L (0.5-1.5) Sodium (137-145) mmol/L Potassium (3.6-5.0) mmol/L Chloride (98-107) mmol/L Carbon Dioxide (22-30) mmol/L BUN (9-20) mg/dL Creatinine (0.8-1.3) mg/dL Glucose (75-100) mg/dL Lactic Acid 13.00 H* (0.7-2.0) mmol/L AST (5-40) units/L ALT (7-56) units/L Troponin T 0.113 H* (0.00-0.029) ng/mL Total Protein (6.3-8.2) g/dL Albumin (3.9-5) g/dL Triglycerides 173 H (2-149) mg/dL LDL Cholesterol Direct 36 L (50-130) mg/dL HDL Cholesterol 28 L (40-59) mg/dL Arterial Blood Ionized Calcium 4.5 L (4.6-5.3) mg/dL Urine WBC (Auto) (0.0-6.0) /HPF 07/26/20 07/26/20 07/27/20 Range/Units 21:07 23:03 00:52 WBC (4.5-11.0) K/mm3 RBC (3.65-5.03) M/mm3 MCV (84-94) fl MCH (28-32) pg Seg Neuts % (Manual) (40.0-70.0) % Lymphocytes % (Manual) (13.4-35.0) % Seg Neutrophils # Man (1.8-7.7) K/mm3 Lymphocytes # (Manual) (1.2-5.4) K/mm3 PT (12.2-14.9) Sec. INR (0.87-1.13) APTT (24.2-36.6) Sec. ABG pH (7.320-7.450) POC ABG pCO2 (32.0-48.0) mmHg POC ABG pO2 (83-108) mmHg ABG Oxyhemoglobin (94-98) ABG Sodium (136.0-145.0) mmol/L ABG Potassium (3.40-4.50) mmol/L ABG Chloride (98-107) mmol/L Carboxyhemoglobin (0.5-1.5) Sodium (137-145) mmol/L Potassium (3.6-5.0) mmol/L Chloride (98-107) mmol/L Carbon Dioxide (22-30) mmol/L BUN (9-20) mg/dL Creatinine (0.8-1.3) mg/dL Glucose (75-100) mg/dL Lactic Acid 8.90 H* 3.40 H* 2.80 H* (0.7-2.0) mmol/L AST (5-40) units/L ALT (7-56) units/L Troponin T (0.00-0.029) ng/mL Total Protein (6.3-8.2) g/dL Albumin (3.9-5) g/dL Triglycerides (2-149) mg/dL LDL Cholesterol Direct (50-130) mg/dL HDL Cholesterol (40-59) mg/dL Arterial Blood Ionized Calcium (4.6-5.3) mg/dL Urine WBC (Auto) (0.0-6.0) /HPF // Range/Units 01:57 WBC (4.5-11.0) K/mm3 RBC (3.65-5.03) M/mm3 MCV (84-94) fl MCH (28-32) pg Seg Neuts % (Manual) (40.0-70.0) % Lymphocytes % (Manual) (13.4-35.0) % Seg Neutrophils # Man (1.8-7.7) K/mm3 Lymphocytes # (Manual) (1.2-5.4) K/mm3 PT (12.2-14.9) Sec. INR (0.87-1.13) APTT (24.2-36.6) Sec. ABG pH (7.320-7.450) POC ABG pCO2 (32.0-48.0) mmHg POC ABG pO2 (83-108) mmHg ABG Oxyhemoglobin (94-98) ABG Sodium (136.0-145.0) mmol/L ABG Potassium (3.40-4.50) mmol/L ABG Chloride (98-107) mmol/L Carboxyhemoglobin (0.5-1.5) Sodium (137-145) mmol/L Potassium (3.6-5.0) mmol/L Chloride (98-107) mmol/L Carbon Dioxide (22-30) mmol/L BUN (9-20) mg/dL Creatinine (0.8-1.3) mg/dL Glucose (75-100) mg/dL Lactic Acid (0.7-2.0) mmol/L AST (5-40) units/L ALT (7-56) units/L Troponin T (0.00-0.029) ng/mL Total Protein (6.3-8.2) g/dL Albumin (3.9-5) g/dL Triglycerides (2-149) mg/dL LDL Cholesterol Direct (50-130) mg/dL HDL Cholesterol (40-59) mg/dL Arterial Blood Ionized Calcium (4.6-5.3) mg/dL Urine WBC (Auto) > 182.0 H (0.0-6.0) /HPF Assessment and Plan - Patient Problems (1) Right sided weakness Current Visit: Yes Status: Acute Plan to address problem: Etiology unclear. Patient has been able to move his extremities upon arrival in the ER. CT of the head has been unremarkable. Patient will be scheduled for CVA work- up. We will schedule for MRI of the brain, carotid Doppler and echocardiogram. We will request neurology evaluation. (2) CRISTIAN (acute kidney injury) Current Visit: Yes Status: Acute Plan to address problem: Patient commenced on IV fluid. Baseline BUN and creatinine unknown. We will request nephrology evaluation. (3) Hypoglycemia Current Visit: Yes Status: Acute Plan to address problem: Patient given IV dextrose. We will monitor Accu-Cheks closely. (4) UTI (urinary tract infection) Current Visit: Yes Status: Acute Plan to address problem: Patient placed on empiric IV antibiotics. (5) Sepsis Current Visit: Yes Status: Acute Qualifiers: Sepsis type: sepsis due to unspecified organism Sepsis acute organ dysfunction status: unspecified Qualified Code(s): A41.9 - Sepsis, unspecified organism Plan to address problem: Possibly secondary to UTI. Patient commenced on empiric IV antibiotics. Will await urine and blood culture results. (6) Rhabdomyolysis Current Visit: Yes Status: Acute Plan to address problem: Patient placed on IV fluid. We will monitor creatinine kinase levels. (7) Elevated troponin Current Visit: Yes Status: Acute Plan to address problem: Possibly secondary to the underlying kidney failure. We will follow up on troponin levels. Cardiology evaluation requested. (8) Elevated liver enzymes Current Visit: Yes Status: Acute Plan to address problem: Etiology unclear. Will monitor liver enzymes. We will request hepatitis panel. Consult placed to gastroenterology for evaluation and recommendation. (9) DVT prophylaxis Current Visit: Yes Status: Acute Plan to address problem: Patient placed on subcutaneous heparin. (10) Full code status Current Visit: Yes Status: Acute Plan to address problem: Patient is full code
[2020-07-27] MEDS ORDERED: PIPERACIL/TAZOBACTA 4.5/NS 100 4.5 GM/100 ML VIAL IV SCH (04:00)
[2020-07-27] MEDS ORDERED: VANCOMYCIN PHARMACY TO DOSE IV SCH (04:00)
[2020-07-27] MEDS ORDERED: PIPERACIL-TAZO 2.25 GM/50 ML 2.25 GM/50 ML BAG IV SCH (06:00)
[2020-07-27] MEDS ORDERED: CALCIUM GLUCONATE 1,000 MG in SODIUM CHLORIDE 0.9% 100 ML IV ONE ×2 (07:15→11:30)
[2020-07-27] MEDS: HEPARIN 5,000 UNIT/1 ML VIAL SUB-Q SCH ×3 (07:19→22:16)
[2020-07-27] MEDS ORDERED: VANCOMYCIN/NS 1 GM/250 ML 1 GM/250 ML BAG IV ONE (08:00)
[2020-07-27] MEDS: INSULIN LISPRO 100 UNIT/ML SUB-Q SCH ×4 (08:54→22:16)
[2020-07-27] MEDS ORDERED: SODIUM BICARBONATE 150 MEQ in WATER FOR INJECTION (PF) 1,000 ML IV SCH (09:00)
[2020-07-27] MEDS ORDERED: SODIUM BICARB 8.4% 50 MEQ/50 ML SYRINGE IV ONE ×2 (09:00→23:38)
[2020-07-27] MEDS ORDERED: SODIUM POLYSTYRENE 15 GM/60 ML ORAL LIQD PO SCH (10:00)
[2020-07-27] MEDS: NORepinephrine/NS 8 MG-250 ML 8 MG/250 ML INFUS..BTL IV SCH (10:59)
[2020-07-27] MEDS ORDERED: SODIUM CHLORIDE 0.9% 100 ML IV PRN (11:04)
[2020-07-27 11:22] LABS: Hepatitis B Surface Antigen Non-Reactive (Negative); Hepatitis C Virus Antibody Non-Reactive (NonReactive)
[2020-07-27 11:24] LABS: Hematocrit 43.7 % (35.5-45.6); Hemoglobin 14.6 gm/dl (11.8-15.2); Mean Corpuscular HGB Conc 34 % (32-34); Mean Corpuscular Volume 103 fl (84-94); Platelet Count 229 K/mm3 (140-440); Red Blood Count 4.26 M/mm3 (3.65-5.03); Red Cell Distribution Width 14.8 % (13.2-15.2)
[2020-07-27] MEDS: DEXTROSE 50% IN WATER (25GM) 50 ML SYRINGE IV PRN ×2 (11:24→22:16)
--- NOTE | 2020-07-27 11:40 | Event Note ---
This is a 72-year-old male with hypertension, diabetes, CVA who presented to the emergency department with right-sided weakness and changes to mental status after being found by his neighbor in his car unresponsive and upon EMS arrival patient's blood glucose was said to be about 30. On arrival to the emergency department patient was hypotensive with systolic blood pressure in the 70s and resuscitated with IV fluids. Patient was more responsive upon arrival to the ER and was on BiPAP. Work-up in the emergency department revealed leukocytosis, lactic acidosis, unremarkable CXR, CT head and CT angio, patient had elevated BUN/creatinine of , elevated troponin to 0.113, transaminitis, creatinine kinase of 3551 and urine analysis showed urinary tract infection. Patient was admitted to the hospital service for sepsis possibly secondary to UTI, hypoglycemia, rhabdomyolysis, transaminitis and acute renal and respiratory failure. CCM, infectious disease, nephrology, neurlogy,st/pt/ot and GI were consulted. 07/27: Patient noted to have improvement in leukocytosis, hyponatremia, hyperkalemia, hypochloremia, metabolic acidosis and her renal function. Patient continues to have lactic acidosis and improvement to AST however ALT has increased. Patient has elevation of 2 creatinine kinase and troponin. Nephrology has initiated the patient on hemodialysis today. Echocardiogram pending. ID has started the patient on cefepime renally dosed and stopped his Zosyn. Sepsis Urinary tract infection Acute kidney injury versus chronic kidney injury Elevated troponin Shock liver/acute ischemia Rhabdomyolysis Leukocytosis Hyperkalemia Hyponatremia Hypochloremia Metabolic acidosis COVID-19 PUI Lactic acidosis Hypertension Diabetes mellitus CVA -CCM, nephrology, GI, infectious disease, cardiology consulted, appreciate recommendations -Antibiotic therapy per infectious disease -Vasopressor therapy to maintain MAP greater than 65 -MIVF per nephrology -HD per nephrology -Strict intake and output -Daily weights -Sodium bicarbonate in D5W drip per nephrology -Wean supplemental oxygen as tolerated -Pulmonary hygiene -SSI, hemoglobin A1c pending -Accu-Cheks every 4 while n.p.o. -07/26 CT head shows moderate microvascular angiopathy and cerebral atrophy without clear CT evidence of acute intracranial hemorrhage -07/26 CTA head shows atherosclerotic calcification involving the distal internal carotid arteries with mild segmental narrowing, no clear CT evidence of large vessel occlusion -07/26 CTA neck shows atherosclerotic calcification involving the proximal left ICA appears to result in moderate to marked stenosis by NASCET criteria, calcified plaque involving the proximal right ICA with mild degree of stenosis -07/26 CT abdomen/pelvis shows no acute pleural or parenchymal abnormality within the chest, no evidence of acute inflammatory or obstructive process within the abdomen or pelvis -07/26 CXR shows mild aortic arch atherosclerotic calcification, cardiac silhouette within normal limits -07/26 CT chest shows no evidence of acute pleural or parenchymal abnormality within the chest, no evidence of acute, inflammatory or obstructive process within the abdomen or pelvis -07/26 MRI brain pending -07/26 bilateral carotid Doppler ultrasound pending -07/26 renal ultrasound pending -07/26 Echocardiogram pending -Trend BMP, CBC, lactic acid, CK, LFTs DVT/GI prophylaxis: PPI, heparin subcu, SCDs to bilateral lower extremities while in bed Disposition ICU The high probability of a clinically significant, sudden or life threatening deterioration of the [multi] system(s) required my full and direct attention, intervention and personal management. The aggregate critical care time was [35] minutes. This time is in addition to time spent performing reported procedures but includes the following: [x] Data Review and interpretation [x] Patient assessment and monitoring of vital signs [x] Documentation [x] Medication orders and management
[2020-07-27 11:42] LABS: Calcium 8.3 mg/dL (8.4-10.2)
[2020-07-27] MEDS ORDERED: DEXTROSE 50% IN WATER (25GM) 50 ML SYRINGE IV ONE (11:42)
[2020-07-27] MEDS: ASPIRIN 325 MG TAB PO SCH (12:12)
[2020-07-27 12:32] LABS: Albumin 2.3 g/dL (3.9-5); Bilirubin,Direct 0.7 mg/dL (0-0.2)
--- NOTE | 2020-07-27 12:36 | Consultation ---
History of Present Illness Consult date: 07/27/20 Consult reason: elevated troponin History of present illness: The patient is a 80-year-old man brought to the emergency room for altered mental status. They report from the triage assessment is that he was found by his neighbors in his car, unresponsive for an unspecified amount of time. The director of content and programming on arrival found that his glucose was 31, there was a right facial asymmetry and slurring of his speech. He was admitted to the hospital with diagnosis of possible CVA, hypoglycemia and altered mental status. Cardiac consultation was requested for the finding of a mild elevation of the troponin. This was in association with a leukocytosis of 19,000, acute renal failure with a creatinine of 6.0, hyperkalemia with a potassium of 6.0, and hyponatremia with a sodium of 127. EKG was normal sinus rhythm, left axis deviation, incomplete right bundle branch block. Chest x-ray shows a normal-sized cardiac silhouette and clear lungs with no infiltrates or edema. Patient is currently awake but very lethargic in the emergency room, on BiPAP, unable to provide history. 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 No prior cardiac assessment has been reported. Past History Past Medical History: diabetes, hypertension, stroke Social history: other (Unknown) Family history: other (Unknown) Medications and Allergies Allergies Allergy/AdvReac Type Severity Reaction Status Date / Time No Known Allergies Allergy Unverified 07/26/20 18:56 Active Meds: Active Medications Acetaminophen (Acetaminophen 325 Mg Tab) 650 mg PO Q6H PRN PRN Reason: Pain MILD(1-3)/Fever >100.5/LOWERY Aspirin (Aspirin 325 Mg Tab) 325 mg PO QDAY [facility] Last Admin: 07/27/20 12:12 Dose: Not Given Documented by: Bisacodyl (Bisacodyl 10 Mg Rect Supp) 10 mg SD QDAY PRN PRN Reason: Constipation Dextrose (Dextrose 50% In Water (25gm) 50 Ml Syringe) 0 ml IV Q30MIN PRN; Protocol PRN Reason: Hypoglycemia Last Admin: 07/27/20 11:24 Dose: 50 ml Documented by: Heparin Sodium (Porcine) (Heparin 5,000 Unit/1 Ml Vial) 5,000 unit SUB-Q Q12HR [facility] Last Admin: 07/27/20 10:00 Dose: Not Given Documented by: NORepinephrine/NS 8 MG-250 ML (Norepinephrine/Ns 8 Mg-250 Ml (Double Conc)) 8 mg in 250 mls @ 3.75 mls/hr IV TITRATE [facility]; Protocol Last Admin: 07/27/20 10:59 Dose: 8 mcg/min, 15 mls/hr Documented by: Piperacillin Sod/Tazobactam Sod (Zosyn/Ns 2.25 Gm/50ml) 2.25 gm in 50 mls @ 100 mls/hr IV Q8HR [facility] Last Admin: 07/27/20 07:36 Dose: 100 mls/hr Documented by: Sodium Chloride (Nacl 0.9%) 100 mls @ 999 mls/hr IV SOLEDAD PRN PRN Reason: Hypotension Sodium Bicarbonate 150 meq/ (Dextrose) 1,150 mls @ 150 mls/hr IV DIRECT [facility] Stop: 07/30/20 20:39 Insulin Human Lispro (Insulin Lispro 100 Unit/Ml) 0 unit SUB-Q ACHS [facility]; Protocol Last Admin: 07/27/20 11:30 Dose: Not Given Documented by: Magnesium Hydroxide (Magnesium Hydroxide (Mom) Oral Liqd Udc) 30 ml PO Q4H PRN PRN Reason: Constipation Metoclopramide HCl (Metoclopramide 10 Mg Tab) 5 mg PO Q6H PRN PRN Reason: Nausea And Vomiting Morphine Sulfate (Morphine 2 Mg/1 Ml Inj) 2 mg IV Q4H PRN PRN Reason: Pain, Moderate (4-6) Ondansetron HCl (Ondansetron 4 Mg/2 Ml Inj) 4 mg IV Q8H PRN PRN Reason: Nausea And Vomiting Promethazine HCl (Promethazine 25 Mg Rect Supp) 25 mg SD Q6H PRN PRN Reason: Nausea And Vomiting Sodium Chloride (Sodium Chloride 0.9% 10 Ml Flush Syringe) 10 ml IV BID [facility] Last Admin: 07/27/20 12:15 Dose: Not Given Documented by: Sodium Chloride (Sodium Chloride 0.9% 10 Ml Flush Syringe) 10 ml IV PRN PRN PRN Reason: LINE FLUSH Review of Systems ROS unobtainable: due to mental status Physical Examination Vital Signs Pulse Resp BP Pulse Ox 118 H 27 H 119/91 96 07/26/20 18:56 07/26/20 18:56 07/26/20 18:56 07/26/20 18:56 General appearance: other (Lethargic, on BiPAP) HEENT: Positive: PERRL Neck: Positive: neck supple Cardiac: Positive: Reg Rate and Rhythm Lungs: Positive: Decreased Breath Sounds Neuro: Positive: Other (Moves all 4 extremities, lethargic, on BiPAP) Abdomen: Positive: Soft Male genitourinary: Positive: deferred Skin: Positive: Clear Extremities: Absent: edema Results 07/27/20 Unknown 07/27/20 Unknown Cardiac Enzymes 07/26/20 Range/Units 18:33 AST 948 H (5-40) units/L Coagulation 07/26/20 Range/Units 18:33 PT 22.9 H (12.2-14.9) Sec. INR 1.96 H (0.87-1.13) APTT 42.3 H (24.2-36.6) Sec. Lipids 07/26/20 Range/Units 18:33 Triglycerides 173 H (2-149) mg/dL Cholesterol 87 (50-199) mg/dL HDL Cholesterol 28 L (40-59) mg/dL Cholesterol/HDL Ratio 3.10 % CBC 07/26/20 07/27/20 Range/Units 18:33 Unknown WBC 19.0 H 17.2 H (4.5-11.0) K/mm3 RBC 3.50 L 4.26 (3.65-5.03) M/mm3 Hgb 12.1 14.6 (11.8-15.2) gm/dl Hct 37.0 43.7 D (35.5-45.6) % Plt Count 259 229 (140-440) K/mm3 Comprehensive Metabolic Panel 07/26/20 07/27/20 Range/Units 18:33 Unknown Sodium 127 L 134 L D (137-145) mmol/L Potassium 6.0 H 4.3 D (3.6-5.0) mmol/L Chloride 88.4 L 95.9 L (98-107) mmol/L Carbon Dioxide 10 L 18 L D (22-30) mmol/L BUN 84 H 86 H (9-20) mg/dL Creatinine 6.0 H 5.4 H (0.8-1.3) mg/dL Glucose 157 H 143 H (75-100) mg/dL Calcium 8.6 8.3 L (8.4-10.2) mg/dL AST 948 H (5-40) units/L ALT 292 H (7-56) units/L Alkaline Phosphatase 59 (35-129) units/L Total Protein 5.2 L (6.3-8.2) g/dL Albumin 2.0 L (3.9-5) g/dL EKG interpretations - Telemetry EKG Rhythm: Sinus Rhythm Assessment and Plan - Patient Problems (1) Elevated troponin Current Visit: Yes Status: Acute Plan to address problem: Elevated troponin is a nonspecific finding in this clinical setting of altered mental status, possible CVA and acute renal failure. We will order an echoc ardiogram for left ventricular function assessment, otherwise conservative cardiac management.
[2020-07-27] MEDS ORDERED: D5W/0.9% NACL 1,000 ML IV SCH (13:00)
[2020-07-27 13:30] LABS: Total Cells Counted 100
--- NOTE | 2020-07-27 13:30 | Consultation ---
History of Present Illness - Reason for Consult Consult date: 07/27/20 - History of Present Illness 80 yo M unknown PMHx brought to the hospital with new onset right sided weakness and altered mental status. He was found in his by his neighbour and was noted to be unresponsive. He was hypotensive on presentation. Afebrile, white count 19 on padmission with 96% neutrophils. EGFR is 12. On BiPAP Imaging personally reviewed: Chest CT: No evidence of active lung disease. CT abdomen pelvis: No evidence of inflammation in the abdomen Past History Past Medical History: diabetes, hypertension, stroke Past Surgical History: Other (Unknown) Social history: other (Unknown) Family history: other (Unknown) Medications and Allergies Allergies Allergy/AdvReac Type Severity Reaction Status Date / Time No Known Allergies Allergy Unverified 07/26/20 18:56 Active Meds: Active Medications Acetaminophen (Acetaminophen 325 Mg Tab) 650 mg PO Q6H PRN PRN Reason: Pain MILD(1-3)/Fever >100.5/LOWERY Aspirin (Aspirin 325 Mg Tab) 325 mg PO QDAY [facility] Last Admin: 07/27/20 12:12 Dose: Not Given Documented by: Bisacodyl (Bisacodyl 10 Mg Rect Supp) 10 mg [place] QDAY PRN PRN Reason: Constipation Dextrose (Dextrose 50% In Water (25gm) 50 Ml Syringe) 0 ml IV Q30MIN PRN; Protocol PRN Reason: Hypoglycemia Last Admin: 07/27/20 11:24 Dose: 50 ml Documented by: Heparin Sodium (Porcine) (Heparin 5,000 Unit/1 Ml Vial) 5,000 unit SUB-Q Q12HR [facility] Last Admin: 07/27/20 10:00 Dose: Not Given Documented by: NORepinephrine/NS 8 MG-250 ML (Norepinephrine/Ns 8 Mg-250 Ml (Double Conc)) 8 mg in 250 mls @ 3.75 mls/hr IV TITRATE [facility]; Protocol Last Admin: 07/27/20 10:59 Dose: 8 mcg/min, 15 mls/hr Documented by: Piperacillin Sod/Tazobactam Sod (Zosyn/Ns 2.25 Gm/50ml) 2.25 gm in 50 mls @ 100 mls/hr IV Q8HR [facility] Last Admin: 07/27/20 07:36 Dose: 100 mls/hr Documented by: Sodium Chloride (Nacl 0.9%) 100 mls @ 999 mls/hr IV SOLEDAD PRN PRN Reason: Hypotension Sodium Bicarbonate 150 meq/ (Dextrose) 1,150 mls @ 150 mls/hr IV DIRECT [facility] Stop: 07/30/20 20:39 Insulin Human Lispro (Insulin Lispro 100 Unit/Ml) 0 unit SUB-Q ACHS [facility]; Protocol Last Admin: 07/27/20 11:30 Dose: Not Given Documented by: Magnesium Hydroxide (Magnesium Hydroxide (Mom) Oral Liqd Udc) 30 ml PO Q4H PRN PRN Reason: Constipation Metoclopramide HCl (Metoclopramide 10 Mg Tab) 5 mg PO Q6H PRN PRN Reason: Nausea And Vomiting Morphine Sulfate (Morphine 2 Mg/1 Ml Inj) 2 mg IV Q4H PRN PRN Reason: Pain, Moderate (4-6) Ondansetron HCl (Ondansetron 4 Mg/2 Ml Inj) 4 mg IV Q8H PRN PRN Reason: Nausea And Vomiting Promethazine HCl (Promethazine 25 Mg Rect Supp) 25 mg [place] Q6H PRN PRN Reason: Nausea And Vomiting Sodium Chloride (Sodium Chloride 0.9% 10 Ml Flush Syringe) 10 ml IV BID [facility] Last Admin: 07/27/20 12:15 Dose: Not Given Documented by: Sodium Chloride (Sodium Chloride 0.9% 10 Ml Flush Syringe) 10 ml IV PRN PRN PRN Reason: LINE FLUSH Review of Systems ROS unobtainable: due to mental status Physical Examination - Physical Exam Narrative exam: Physical Exam: Constitutional: Awake, disoriented Head, Ears, Nose: Normocephalic, atraumatic. External ears, nose normal Eyes: Conjunctivae/corneas clear. No icterus. No ptosis. Neck: Supple, no meningeal signs Oral: dentition fair, no thrush Cardiovascular: S1, S2 normal. Respiratory: Good air entry, clear to auscultation bilaterally GI: Soft, non-tender; bowel sounds normal. No peritoneal signs. Musculoskeletal: No pedal edema, no cyanosis. Skin: No rash or abscess Hem/Lymphatic: No palpable cervical or supraclavicular nodes. No lymphangitis Psych: No agitation Neurological: Awake, disoriented - Constitutional Vitals: Vital Signs Temp Pulse Resp BP Pulse Ox 97.5 F L 101 H 21 139/77 100 07/27/20 09:52 07/27/20 11:31 07/27/20 11:31 07/27/20 11:31 07/27/20 11:31 Temperature -Last 24 Hours Temperature 97.5 F Temperature 97.6 F Results - Labs CBC & Chem 7: 07/27/20 Unknown 07/27/20 Unknown Labs: Abnormal lab results 07/26/20 07/26/20 07/26/20 Range/Units 18:33 18:33 18:33 WBC 19.0 H (4.5-11.0) K/mm3 RBC 3.50 L (3.65-5.03) M/mm3 MCV 106 H (84-94) fl MCH 35 H (28-32) pg Seg Neuts % (Manual) 96.0 H (40.0-70.0) % Lymphocytes % (Manual) 3.0 L (13.4-35.0) % Seg Neutrophils # Man 18.2 H (1.8-7.7) K/mm3 Lymphocytes # (Manual) 0.6 L (1.2-5.4) K/mm3 PT 22.9 H (12.2-14.9) Sec. INR 1.96 H (0.87-1.13) APTT 42.3 H (24.2-36.6) Sec. ABG pH (7.320-7.450) POC ABG pCO2 (32.0-48.0) mmHg POC ABG pO2 (83-108) mmHg ABG Oxyhemoglobin (94-98) ABG Sodium (136.0-145.0) mmol/L ABG Potassium (3.40-4.50) mmol/L ABG Chloride (98-107) mmol/L ABG Glucose (65-95) mg/dL Carboxyhemoglobin (0.5-1.5) Sodium 127 L (137-145) mmol/L Potassium 6.0 H (3.6-5.0) mmol/L Chloride 88.4 L (98-107) mmol/L Carbon Dioxide 10 L (22-30) mmol/L BUN 84 H (9-20) mg/dL Creatinine 6.0 H (0.8-1.3) mg/dL Glucose 157 H (75-100) mg/dL Lactic Acid (0.7-2.0) mmol/L Calcium (8.4-10.2) mg/dL Direct Bilirubin (0-0.2) mg/dL AST 948 H (5-40) units/L ALT 292 H (7-56) units/L Total Creatine Kinase (55-170) units/L Troponin T (0.00-0.029) ng/mL Total Protein 5.2 L (6.3-8.2) g/dL Albumin 2.0 L (3.9-5) g/dL Triglycerides (2-149) mg/dL LDL Cholesterol Direct (50-130) mg/dL HDL Cholesterol (40-59) mg/dL Arterial Blood Glucose (65-95) mg/dL Arterial Blood Ionized Calcium (4.6-5.3) mg/dL Urine WBC (Auto) (0.0-6.0) /HPF 07/26/20 07/26/20 07/26/20 Range/Units 18:33 19:16 20:14 WBC (4.5-11.0) K/mm3 RBC (3.65-5.03) M/mm3 MCV (84-94) fl MCH (28-32) pg Seg Neuts % (Manual) (40.0-70.0) % Lymphocytes % (Manual) (13.4-35.0) % Seg Neutrophils # Man (1.8-7.7) K/mm3 Lymphocytes # (Manual) (1.2-5.4) K/mm3 PT (12.2-14.9) Sec. INR (0.87-1.13) APTT (24.2-36.6) Sec. ABG pH 7.182 L (7.320-7.450) POC ABG pCO2 29.7 L (32.0-48.0) mmHg POC ABG pO2 28.5 L (83-108) mmHg ABG Oxyhemoglobin 36.0 L (94-98) ABG Sodium 130.1 L (136.0-145.0) mmol/L ABG Potassium 5.4 H (3.40-4.50) mmol/L ABG Chloride 96.0 L (98-107) mmol/L ABG Glucose (65-95) mg/dL Carboxyhemoglobin 0.3 L (0.5-1.5) Sodium (137-145) mmol/L Potassium (3.6-5.0) mmol/L Chloride (98-107) mmol/L Carbon Dioxide (22-30) mmol/L BUN (9-20) mg/dL Creatinine (0.8-1.3) mg/dL Glucose (75-100) mg/dL Lactic Acid 13.00 H* (0.7-2.0) mmol/L Calcium (8.4-10.2) mg/dL Direct Bilirubin (0-0.2) mg/dL AST (5-40) units/L ALT (7-56) units/L Total Creatine Kinase (55-170) units/L Troponin T 0.113 H* (0.00-0.029) ng/mL Total Protein (6.3-8.2) g/dL Albumin (3.9-5) g/dL Triglycerides 173 H (2-149) mg/dL LDL Cholesterol Direct 36 L (50-130) mg/dL HDL Cholesterol 28 L (40-59) mg/dL Arterial Blood Glucose (65-95) mg/dL Arterial Blood Ionized Calcium 4.5 L (4.6-5.3) mg/dL Urine WBC (Auto) (0.0-6.0) /HPF 07/26/20 07/26/20 07/27/20 Range/Units 21:07 23:03 00:52 WBC (4.5-11.0) K/mm3 RBC (3.65-5.03) M/mm3 MCV (84-94) fl MCH (28-32) pg Seg Neuts % (Manual) (40.0-70.0) % Lymphocytes % (Manual) (13.4-35.0) % Seg Neutrophils # Man (1.8-7.7) K/mm3 Lymphocytes # (Manual) (1.2-5.4) K/mm3 PT (12.2-14.9) Sec. INR (0.87-1.13) APTT (24.2-36.6) Sec. ABG pH (7.320-7.450) POC ABG pCO2 (32.0-48.0) mmHg POC ABG pO2 (83-108) mmHg ABG Oxyhemoglobin (94-98) ABG Sodium (136.0-145.0) mmol/L ABG Potassium (3.40-4.50) mmol/L ABG Chloride (98-107) mmol/L ABG Glucose (65-95) mg/dL Carboxyhemoglobin (0.5-1.5) Sodium (137-145) mmol/L Potassium (3.6-5.0) mmol/L Chloride (98-107) mmol/L Carbon Dioxide (22-30) mmol/L BUN (9-20) mg/dL Creatinine (0.8-1.3) mg/dL Glucose (75-100) mg/dL Lactic Acid 8.90 H* 3.40 H* 2.80 H* (0.7-2.0) mmol/L Calcium (8.4-10.2) mg/dL Direct Bilirubin (0-0.2) mg/dL AST (5-40) units/L ALT (7-56) units/L Total Creatine Kinase (55-170) units/L Troponin T (0.00-0.029) ng/mL Total Protein (6.3-8.2) g/dL Albumin (3.9-5) g/dL Triglycerides (2-149) mg/dL LDL Cholesterol Direct (50-130) mg/dL HDL Cholesterol (40-59) mg/dL Arterial Blood Glucose (65-95) mg/dL Arterial Blood Ionized Calcium (4.6-5.3) mg/dL Urine WBC (Auto) (0.0-6.0) /HPF 07/27/20 07/27/20 07/27/20 Range/Units 01:57 03:00 03:00 WBC (4.5-11.0) K/mm3 RBC (3.65-5.03) M/mm3 MCV (84-94) fl MCH (28-32) pg Seg Neuts % (Manual) (40.0-70.0) % Lymphocytes % (Manual) (13.4-35.0) % Seg Neutrophils # Man (1.8-7.7) K/mm3 Lymphocytes # (Manual) (1.2-5.4) K/mm3 PT (12.2-14.9) Sec. INR (0.87-1.13) APTT (24.2-36.6) Sec. ABG pH (7.320-7.450) POC ABG pCO2 (32.0-48.0) mmHg POC ABG pO2 (83-108) mmHg ABG Oxyhemoglobin (94-98) ABG Sodium (136.0-145.0) mmol/L ABG Potassium (3.40-4.50) mmol/L ABG Chloride (98-107) mmol/L ABG Glucose (65-95) mg/dL Carboxyhemoglobin (0.5-1.5) Sodium (137-145) mmol/L Potassium (3.6-5.0) mmol/L Chloride (98-107) mmol/L Carbon Dioxide (22-30) mmol/L BUN (9-20) mg/dL Creatinine (0.8-1.3) mg/dL Glucose (75-100) mg/dL Lactic Acid 2.60 H* (0.7-2.0) mmol/L Calcium (8.4-10.2) mg/dL Direct Bilirubin (0-0.2) mg/dL AST (5-40) units/L ALT (7-56) units/L Total Creatine Kinase 3551 H (55-170) units/L Troponin T (0.00-0.029) ng/mL Total Protein (6.3-8.2) g/dL Albumin (3.9-5) g/dL Triglycerides (2-149) mg/dL LDL Cholesterol Direct (50-130) mg/dL HDL Cholesterol (40-59) mg/dL Arterial Blood Glucose (65-95) mg/dL Arterial Blood Ionized Calcium (4.6-5.3) mg/dL Urine WBC (Auto) > 182.0 H (0.0-6.0) /HPF 07/27/20 07/27/20 07/27/20 Range/Units 07:21 13:12 Unknown WBC (4.5-11.0) K/mm3 RBC (3.65-5.03) M/mm3 MCV (84-94) fl MCH (28-32) pg Seg Neuts % (Manual) (40.0-70.0) % Lymphocytes % (Manual) (13.4-35.0) % Seg Neutrophils # Man (1.8-7.7) K/mm3 Lymphocytes # (Manual) (1.2-5.4) K/mm3 PT (12.2-14.9) Sec. INR (0.87-1.13) APTT (24.2-36.6) Sec. ABG pH (7.320-7.450) POC ABG pCO2 24.4 L (32.0-48.0) mmHg POC ABG pO2 446.8 H (83-108) mmHg ABG Oxyhemoglobin 99.0 H (94-98) ABG Sodium 128.9 L (136.0-145.0) mmol/L ABG Potassium (3.40-4.50) mmol/L ABG Chloride (98-107) mmol/L ABG Glucose 552 H (65-95) mg/dL Carboxyhemoglobin 0.3 L (0.5-1.5) Sodium (137-145) mmol/L Potassium (3.6-5.0) mmol/L Chloride (98-107) mmol/L Carbon Dioxide (22-30) mmol/L BUN (9-20) mg/dL Creatinine (0.8-1.3) mg/dL Glucose (75-100) mg/dL Lactic Acid 4.00 H* (0.7-2.0) mmol/L Calcium (8.4-10.2) mg/dL Direct Bilirubin (0-0.2) mg/dL AST (5-40) units/L ALT (7-56) units/L Total Creatine Kinase (55-170) units/L Troponin T 0.159 H* D (0.00-0.029) ng/mL Total Protein (6.3-8.2) g/dL Albumin (3.9-5) g/dL Triglycerides (2-149) mg/dL LDL Cholesterol Direct (50-130) mg/dL HDL Cholesterol (40-59) mg/dL Arterial Blood Glucose 552 H (65-95) mg/dL Arterial Blood Ionized Calcium 4.1 L (4.6-5.3) mg/dL Urine WBC (Auto) (0.0-6.0) /HPF 07/27/20 07/27/20 07/27/20 Range/Units Unknown Unknown Unknown WBC (4.5-11.0) K/mm3 RBC (3.65-5.03) M/mm3 MCV (84-94) fl MCH (28-32) pg Seg Neuts % (Manual) (40.0-70.0) % Lymphocytes % (Manual) (13.4-35.0) % Seg Neutrophils # Man (1.8-7.7) K/mm3 Lymphocytes # (Manual) (1.2-5.4) K/mm3 PT (12.2-14.9) Sec. INR (0.87-1.13) APTT (24.2-36.6) Sec. ABG pH (7.320-7.450) POC ABG pCO2 (32.0-48.0) mmHg POC ABG pO2 (83-108) mmHg ABG Oxyhemoglobin (94-98) ABG Sodium (136.0-145.0) mmol/L ABG Potassium (3.40-4.50) mmol/L ABG Chloride (98-107) mmol/L ABG Glucose (65-95) mg/dL Carboxyhemoglobin (0.5-1.5) Sodium 134 L D (137-145) mmol/L Potassium (3.6-5.0) mmol/L Chloride 95.9 L (98-107) mmol/L Carbon Dioxide 18 L D (22-30) mmol/L BUN 86 H (9-20) mg/dL Creatinine 5.4 H (0.8-1.3) mg/dL Glucose 143 H (75-100) mg/dL Lactic Acid 3.40 H* (0.7-2.0) mmol/L Calcium 8.3 L (8.4-10.2) mg/dL Direct Bilirubin (0-0.2) mg/dL AST (5-40) units/L ALT (7-56) units/L Total Creatine Kinase 7505 H (55-170) units/L Troponin T (0.00-0.029) ng/mL Total Protein (6.3-8.2) g/dL Albumin (3.9-5) g/dL Triglycerides (2-149) mg/dL LDL Cholesterol Direct (50-130) mg/dL HDL Cholesterol (40-59) mg/dL Arterial Blood Glucose (65-95) mg/dL Arterial Blood Ionized Calcium (4.6-5.3) mg/dL Urine WBC (Auto) (0.0-6.0) /HPF 07/27/20 07/27/20 Range/Units Unknown Unknown WBC 17.2 H (4.5-11.0) K/mm3 RBC (3.65-5.03) M/mm3 MCV 103 H (84-94) fl MCH 34 H (28-32) pg Seg Neuts % (Manual) (40.0-70.0) % Lymphocytes % (Manual) (13.4-35.0) % Seg Neutrophils # Man (1.8-7.7) K/mm3 Lymphocytes # (Manual) (1.2-5.4) K/mm3 PT (12.2-14.9) Sec. INR (0.87-1.13) APTT (24.2-36.6) Sec. ABG pH (7.320-7.450) POC ABG pCO2 (32.0-48.0) mmHg POC ABG pO2 (83-108) mmHg ABG Oxyhemoglobin (94-98) ABG Sodium (136.0-145.0) mmol/L ABG Potassium (3.40-4.50) mmol/L ABG Chloride (98-107) mmol/L ABG Glucose (65-95) mg/dL Carboxyhemoglobin (0.5-1.5) Sodium (137-145) mmol/L Potassium (3.6-5.0) mmol/L Chloride (98-107) mmol/L Carbon Dioxide (22-30) mmol/L BUN (9-20) mg/dL Creatinine (0.8-1.3) mg/dL Glucose (75-100) mg/dL Lactic Acid (0.7-2.0) mmol/L Calcium (8.4-10.2) mg/dL Direct Bilirubin 0.7 H (0-0.2) mg/dL AST 65 H (5-40) units/L ALT 1671 H (7-56) units/L Total Creatine Kinase (55-170) units/L Troponin T (0.00-0.029) ng/mL Total Protein 6.0 L (6.3-8.2) g/dL Albumin 2.3 L (3.9-5) g/dL Triglycerides (2-149) mg/dL LDL Cholesterol Direct (50-130) mg/dL HDL Cholesterol (40-59) mg/dL Arterial Blood Glucose (65-95) mg/dL Arterial Blood Ionized Calcium (4.6-5.3) mg/dL Urine WBC (Auto) (0.0-6.0) /HPF Assessment and Plan Cultures: None A/P: 80-year-old man unknown past medical history admitted with altered mental status, found to have possible UTI. #Acute sepsis: Present with low temperatures, leukocytosis, tachycardia. Likely secondary to UTI. #UTI: Urinalysis with greater than 182 WBC. Awaiting urine cultures. #CRISTIAN versus CKD: Unclear baseline. Renally adjust medications. Recs: -Stop Zosyn -Start cefepime renally adjusted. -Follow-up urine, blood cultures Thank you for the consult, we will continue to follow. Indigo Alfaro MD [facility] ([facility] O: [phone] F: [phone]
[2020-07-27 13:31] LABS: Anisocytosis Few; Band Neutrophils # (Manual) 6.2 K/mm3; Macrocytosis 1+; Platelet Clumps Rare; Platelet Estimate Consistent w Auto
--- NOTE | 2020-07-27 14:12 | Consultation ---
History of Present Illness Consult date: 07/27/20 Requesting physician: ALEX WALSH Reason for consult: other (Septic Shock; Acute Encephalopathy) History of present illness: PULMONARY/CCM CONSULT NOTE (Full dictation # [id number]) Please see dictated notes for full details Past History Past Medical History: diabetes, hypertension, stroke Past Surgical History: Other (Unknown) Social history: other (Unknown) Family history: other (Unknown) Medications and Allergies Allergies Allergy/AdvReac Type Severity Reaction Status Date / Time No Known Allergies Allergy Unverified 07/26/20 18:56 Active Meds: Active Medications Acetaminophen (Acetaminophen 325 Mg Tab) 650 mg PO Q6H PRN PRN Reason: Pain MILD(1-3)/Fever >100.5/LOWERY Aspirin (Aspirin 325 Mg Tab) 325 mg PO QDAY VALERI Last Admin: 07/27/20 12:12 Dose: Not Given Documented by: Bisacodyl (Bisacodyl 10 Mg Rect Supp) 10 mg [place] QDAY PRN PRN Reason: Constipation Dextrose (Dextrose 50% In Water (25gm) 50 Ml Syringe) 0 ml IV Q30MIN PRN; Protocol PRN Reason: Hypoglycemia Last Admin: 07/27/20 11:24 Dose: 50 ml Documented by: Heparin Sodium (Porcine) (Heparin 5,000 Unit/1 Ml Vial) 5,000 unit SUB-Q Q12HR VALERI Last Admin: 07/27/20 10:00 Dose: Not Given Documented by: NORepinephrine/NS 8 MG-250 ML (Norepinephrine/Ns 8 Mg-250 Ml (Double Conc)) 8 mg in 250 mls @ 3.75 mls/hr IV TITRATE VALERI; Protocol Last Admin: 07/27/20 10:59 Dose: 8 mcg/min, 15 mls/hr Documented by: Sodium Chloride (Nacl 0.9%) 100 mls @ 999 mls/hr IV SOLEDAD PRN PRN Reason: Hypotension Sodium Bicarbonate 150 meq/ (Dextrose) 1,150 mls @ 150 mls/hr IV DIRECT VALERI Stop: 07/30/20 20:39 Cefepime HCl (Cefepime/Ns 2 Gm/100 Ml) 2 gm in 100 mls @ 200 mls/hr IV Q24H [facility]; Protocol Insulin Human Lispro (Insulin Lispro 100 Unit/Ml) 0 unit SUB-Q ACHS [facility]; Protocol Last Admin: 07/27/20 11:30 Dose: Not Given Documented by: Magnesium Hydroxide (Magnesium Hydroxide (Mom) Oral Liqd Udc) 30 ml PO Q4H PRN PRN Reason: Constipation Metoclopramide HCl (Metoclopramide 10 Mg Tab) 5 mg PO Q6H PRN PRN Reason: Nausea And Vomiting Morphine Sulfate (Morphine 2 Mg/1 Ml Inj) 2 mg IV Q4H PRN PRN Reason: Pain, Moderate (4-6) Ondansetron HCl (Ondansetron 4 Mg/2 Ml Inj) 4 mg IV Q8H PRN PRN Reason: Nausea And Vomiting Promethazine HCl (Promethazine 25 Mg Rect Supp) 25 mg [place] Q6H PRN PRN Reason: Nausea And Vomiting Sodium Chloride (Sodium Chloride 0.9% 10 Ml Flush Syringe) 10 ml IV BID VALERI Last Admin: 07/27/20 12:15 Dose: Not Given Documented by: Sodium Chloride (Sodium Chloride 0.9% 10 Ml Flush Syringe) 10 ml IV PRN PRN PRN Reason: LINE FLUSH Physical Examination Vital signs: Vital Signs Pulse Resp BP Pulse Ox 118 H 27 H 119/91 96 07/26/20 18:56 07/26/20 18:56 07/26/20 18:56 07/26/20 18:56 Results - Laboratory Findings CBC and BMP: 07/27/20 Unknown 07/27/20 Unknown ABG ABG pH 7.372 (7.320-7.450) 07/27/20 13:12 POC ABG pCO2 24.4 mmHg (32.0-48.0) L 07/27/20 13:12 POC ABG pO2 446.8 mmHg (83-108) H 07/27/20 13:12 POC ABG HCO3 13.9 07/27/20 13:12 ABG O2 Saturation 99.7 (0-100) 07/27/20 13:12 PT/INR, D-dimer PT 22.9 Sec. (12.2-14.9) H 07/26/20 18:33 INR 1.96 (0.87-1.13) H 07/26/20 18:33 Abnormal lab findings: Abnormal Labs 07/26/20 07/26/20 07/26/20 18:33 18:33 18:33 WBC 19.0 H RBC 3.50 L MCV 106 H MCH 35 H Seg Neuts % (Manual) 96.0 H Lymphocytes % (Manual) 3.0 L Seg Neutrophils # Man 18.2 H Lymphocytes # (Manual) 0.6 L PT 22.9 H INR 1.96 H APTT 42.3 H ABG pH POC ABG pCO2 POC ABG pO2 ABG Oxyhemoglobin ABG Sodium ABG Potassium ABG Chloride ABG Glucose Carboxyhemoglobin Sodium 127 L Potassium 6.0 H Chloride 88.4 L Carbon Dioxide 10 L BUN 84 H Creatinine 6.0 H Glucose 157 H Lactic Acid Calcium Direct Bilirubin AST 948 H ALT 292 H Total Creatine Kinase Troponin T Total Protein 5.2 L Albumin 2.0 L Triglycerides LDL Cholesterol Direct HDL Cholesterol Arterial Blood Glucose Arterial Blood Ionized Calcium Urine WBC (Auto) 07/26/20 07/26/20 07/26/20 18:33 19:16 20:14 WBC RBC MCV MCH Seg Neuts % (Manual) Lymphocytes % (Manual) Seg Neutrophils # Man Lymphocytes # (Manual) PT INR APTT ABG pH 7.182 L POC ABG pCO2 29.7 L POC ABG pO2 28.5 L ABG Oxyhemoglobin 36.0 L ABG Sodium 130.1 L ABG Potassium 5.4 H ABG Chloride 96.0 L ABG Glucose Carboxyhemoglobin 0.3 L Sodium Potassium Chloride Carbon Dioxide BUN Creatinine Glucose Lactic Acid 13.00 H* Calcium Direct Bilirubin AST ALT Total Creatine Kinase Troponin T 0.113 H* Total Protein Albumin Triglycerides 173 H LDL Cholesterol Direct 36 L HDL Cholesterol 28 L Arterial Blood Glucose Arterial Blood Ionized Calcium 4.5 L Urine WBC (Auto) 07/26/20 07/26/20 07/27/20 21:07 23:03 00:52 WBC RBC MCV MCH Seg Neuts % (Manual) Lymphocytes % (Manual) Seg Neutrophils # Man Lymphocytes # (Manual) PT INR APTT ABG pH POC ABG pCO2 POC ABG pO2 ABG Oxyhemoglobin ABG Sodium ABG Potassium ABG Chloride ABG Glucose Carboxyhemoglobin Sodium Potassium Chloride Carbon Dioxide BUN Creatinine Glucose Lactic Acid 8.90 H* 3.40 H* 2.80 H* Calcium Direct Bilirubin AST ALT Total Creatine Kinase Troponin T Total Protein Albumin Triglycerides LDL Cholesterol Direct HDL Cholesterol Arterial Blood Glucose Arterial Blood Ionized Calcium Urine WBC (Auto) 07/27/20 07/27/20 07/27/20 01:57 03:00 03:00 WBC RBC MCV MCH Seg Neuts % (Manual) Lymphocytes % (Manual) Seg Neutrophils # Man Lymphocytes # (Manual) PT INR APTT ABG pH POC ABG pCO2 POC ABG pO2 ABG Oxyhemoglobin ABG Sodium ABG Potassium ABG Chloride ABG Glucose Carboxyhemoglobin Sodium Potassium Chloride Carbon Dioxide BUN Creatinine Glucose Lactic Acid 2.60 H* Calcium Direct Bilirubin AST ALT Total Creatine Kinase 3551 H Troponin T Total Protein Albumin Triglycerides LDL Cholesterol Direct HDL Cholesterol Arterial Blood Glucose Arterial Blood Ionized Calcium Urine WBC (Auto) > 182.0 H 07/27/20 07/27/20 07/27/20 07:21 13:12 Unknown WBC RBC MCV MCH Seg Neuts % (Manual) Lymphocytes % (Manual) Seg Neutrophils # Man Lymphocytes # (Manual) PT INR APTT ABG pH POC ABG pCO2 24.4 L POC ABG pO2 446.8 H ABG Oxyhemoglobin 99.0 H ABG Sodium 128.9 L ABG Potassium ABG Chloride ABG Glucose 552 H Carboxyhemoglobin 0.3 L Sodium Potassium Chloride Carbon Dioxide BUN Creatinine Glucose Lactic Acid 4.00 H* Calcium Direct Bilirubin AST ALT Total Creatine Kinase Troponin T 0.159 H* D Total Protein Albumin Triglycerides LDL Cholesterol Direct HDL Cholesterol Arterial Blood Glucose 552 H Arterial Blood Ionized Calcium 4.1 L Urine WBC (Auto) 07/27/20 07/27/20 07/27/20 Unknown Unknown Unknown WBC RBC MCV MCH Seg Neuts % (Manual) Lymphocytes % (Manual) Seg Neutrophils # Man Lymphocytes # (Manual) PT INR APTT ABG pH POC ABG pCO2 POC ABG pO2 ABG Oxyhemoglobin ABG Sodium ABG Potassium ABG Chloride ABG Glucose Carboxyhemoglobin Sodium 134 L D Potassium Chloride 95.9 L Carbon Dioxide 18 L D BUN 86 H Creatinine 5.4 H Glucose 143 H Lactic Acid 3.40 H* Calcium 8.3 L Direct Bilirubin AST ALT Total Creatine Kinase 7505 H Troponin T Total Protein Albumin Triglycerides LDL Cholesterol Direct HDL Cholesterol Arterial Blood Glucose Arterial Blood Ionized Calcium Urine WBC (Auto) 07/27/20 07/27/20 Unknown Unknown WBC 17.2 H RBC MCV 103 H MCH 34 H Seg Neuts % (Manual) Lymphocytes % (Manual) 7.0 L Seg Neutrophils # Man 9.6 H Lymphocytes # (Manual) PT INR APTT ABG pH POC ABG pCO2 POC ABG pO2 ABG Oxyhemoglobin ABG Sodium ABG Potassium ABG Chloride ABG Glucose Carboxyhemoglobin Sodium Potassium Chloride Carbon Dioxide BUN Creatinine Glucose Lactic Acid Calcium Direct Bilirubin 0.7 H AST 65 H ALT 1671 H Total Creatine Kinase Troponin T Total Protein 6.0 L Albumin 2.3 L Triglycerides LDL Cholesterol Direct HDL Cholesterol Arterial Blood Glucose Arterial Blood Ionized Calcium Urine WBC (Auto)
[2020-07-27] MEDS: SODIUM BICARBONATE 150 MEQ in DEXTROSE 5% IN WATER 1,000 ML IV SCH (16:00)
--- NOTE | 2020-07-27 16:27 | Consultation ---
History of Present Illness - Reason for Consult Consult date: 07/27/20 acute renal failure, hyperkalemia, metabolic acidosis - History of Present Illness This is a 80-year-old man who was brought to the emergency department by EMS for acute encephalopathy. Patient was found by his neighbors in his car, unresponsiveduration unknown. The film sound coordinator on arrival noted that he was hypoglycemic with a glucose of 31 along with right facial asymmetry and slurring of speech. He was brought to the hospital as a code stroke and workup on presentation was notable for acute kidney injury, hyperkalemia and acidosis and nephrology was subsequently consulted for further management. Patient is unable to communicate at this time due to confusion and BiPAP. Details were obtained from chart and primary team. Past History Past Medical History: diabetes, hypertension, stroke Past Surgical History: Other (Unknown) Social history: other (Unknown) Family history: other (Unknown) Medications and Allergies Allergies Allergy/AdvReac Type Severity Reaction Status Date / Time No Known Allergies Allergy Unverified 07/26/20 18:56 Active Meds: Active Medications Acetaminophen (Acetaminophen 325 Mg Tab) 650 mg PO Q6H PRN PRN Reason: Pain MILD(1-3)/Fever >100.5/[place] Aspirin (Aspirin 325 Mg Tab) 325 mg PO QDAY VALERI Last Admin: 07/27/20 12:12 Dose: Not Given Documented by: Bisacodyl (Bisacodyl 10 Mg Rect Supp) 10 mg [place] QDAY PRN PRN Reason: Constipation Dextrose (Dextrose 50% In Water (25gm) 50 Ml Syringe) 0 ml IV Q30MIN PRN; Protocol PRN Reason: Hypoglycemia Last Admin: 07/27/20 11:24 Dose: 50 ml Documented by: Heparin Sodium (Porcine) (Heparin 5,000 Unit/1 Ml Vial) 5,000 unit SUB-Q Q12HR VALERI Last Admin: 07/27/20 10:00 Dose: Not Given Documented by: NORepinephrine/NS 8 MG-250 ML (Norepinephrine/Ns 8 Mg-250 Ml (Double Conc)) 8 mg in 250 mls @ 3.75 mls/hr IV TITRATE VALERI; Protocol Last Admin: 07/27/20 10:59 Dose: 8 mcg/min, 15 mls/hr Documented by: Sodium Chloride (Nacl 0.9%) 100 mls @ 999 mls/hr IV SOLEDAD PRN PRN Reason: Hypotension Sodium Bicarbonate 150 meq/ (Dextrose) 1,150 mls @ 150 mls/hr IV DIRECT VALERI Stop: 07/30/20 20:39 Cefepime HCl (Cefepime/Ns 2 Gm/100 Ml) 2 gm in 100 mls @ 200 mls/hr IV Q24H [facility]; Protocol Insulin Human Lispro (Insulin Lispro 100 Unit/Ml) 0 unit SUB-Q ACHS [facility]; Protocol Last Admin: 07/27/20 11:30 Dose: Not Given Documented by: Magnesium Hydroxide (Magnesium Hydroxide (Mom) Oral Liqd Udc) 30 ml PO Q4H PRN PRN Reason: Constipation Metoclopramide HCl (Metoclopramide 10 Mg Tab) 5 mg PO Q6H PRN PRN Reason: Nausea And Vomiting Morphine Sulfate (Morphine 2 Mg/1 Ml Inj) 2 mg IV Q4H PRN PRN Reason: Pain, Moderate (4-6) Ondansetron HCl (Ondansetron 4 Mg/2 Ml Inj) 4 mg IV Q8H PRN PRN Reason: Nausea And Vomiting Promethazine HCl (Promethazine 25 Mg Rect Supp) 25 mg [place] Q6H PRN PRN Reason: Nausea And Vomiting Sodium Chloride (Sodium Chloride 0.9% 10 Ml Flush Syringe) 10 ml IV BID [facility] Last Admin: 07/27/20 12:15 Dose: Not Given Documented by: Sodium Chloride (Sodium Chloride 0.9% 10 Ml Flush Syringe) 10 ml IV PRN PRN PRN Reason: LINE FLUSH Review of Systems ROS unobtainable: due to endotracheal tube (On bipap) Exam - Vital Signs Vital signs: Vital Signs Pulse Resp BP Pulse Ox 118 H 27 H 119/91 96 07/26/20 18:56 07/26/20 18:56 07/26/20 18:56 07/26/20 18:56 - Physical Exam Narrative exam: General: No acute distress HEENT: On BiPAP Neck: Supple, no JVD Chest: On BiPAP Heart: RRR, S1 and S2, no pericardial rub Abdomen: Soft, nontender, no renal bruit Extremity: No peripheral cyanosis, edema Neurological: Alert, responding appropriately to command Dermatology: No skin rash Psych: Unable to assess Musculoskeletal: No joint effusion Results - Lab Results 07/27/20 Unknown 07/27/20 Unknown Most recent lab results ABG pH 7.372 (7.320-7.450) 07/27/20 13:12 ABG O2 Saturation 99.7 (0-100) 07/27/20 13:12 Calcium 8.3 mg/dL (8.4-10.2) L 07/27/20 Unknown Assessment and Plan Assessment Acute kidney injury Hematuria Proteinuria Pyuria Hyponatremia Hyperkalemia Hypochloremia Acidosis Acute respiratory failure. On bipap Acute encephalopathy. CT head negative for acute stroke/bleed Recommendations Check serologies Check urine culture Continue IVF Planned for hemodialysis following access placement, discussed with critical care Renal ultrasound ordered - pending Keep MAP more than 65, vasopressors prn Glucose monitoring Renally dose medications Avoid nephrotoxins Renal diet Plan was discussed with patient and permission was obtained for HD, patient alert and responding appropriately at time of visit Thank you for involving us in the care of this patient. We will follow along and make recommendations from renal standpoint. Critical care time 34 minutes
--- NOTE | 2020-07-27 16:50 | Procedure Note ---
Date of procedure: 07/27/20 Pre-op diagnosis: respiratory and renal failure Post-op diagnosis: same Procedure: 2 MD consent for emergent trialysis catheter - pt in acute respiratory failure and needs emergent hemodialysis -Dr Onofre and Dr Ross aware. RIJ trialysis catheter placed, over the wire without difficulty. Sterile technique utilized. Area prepped with chlorhexidine/ full body drape utilized. A guidewire exchange of RIJ 7F TLC to a 9F trialysis completed. Line was sutured, biopatch placed and tegaderm dressing applied. Chest xray to confirm placement. No pneumothorax. RN called to bedside. Pt tolerated procedure well. VS remained stable throughout procedure. (time spent placing line not included in daily critical care time) Red Lead Burner: JARAD CARL Estimated blood loss: minimal Pathology: none Condition: stable Disposition: ICU
--- NOTE | 2020-07-27 16:50 | XRay Report ---
CHEST 1 VIEW INDICATION / CLINICAL INFORMATION: vas cath placement. COMPARISON: 07/26/2020 FINDINGS: SUPPORT DEVICES: Right central venous line HEART / MEDIASTINUM: No significant abnormality. LUNGS / PLEURA: No significant pulmonary or pleural abnormality. No pneumothorax. ADDITIONAL FINDINGS: No significant additional findings. IMPRESSION: Right central venous line has been placed with the tip superimposed over the expected position of the atriocaval junction. No evidence of a right-sided pneumothorax Signer Name: Kyrie Toro MD FACR Signed: 07/27/2020 4:46 PM Workstation Name: [email or web address]
[2020-07-27] MEDS: CEFEPIME/NS 2 GM/100 ML 2 GM/100 ML BAG IV SCH (17:00)
--- NOTE | 2020-07-27 17:39 | Gastroenterology Consultation ---
History of Present Illness - Reason for Consult Consult date: 07/27/20 Abnl LFTs Requesting physician: ELLE MCKINLEY - History of Present Illness The patient is a 80 yo male who was found in his car unresponsive and brought to the ER. He is currently on BiPAP and not verbal, but is awake and alert. The history is per the chart. He had elevated LFTs on admit, but hepatitis serologies were negative. His CPK, however, is markedly elevated, and it is not clear how long he was in his car unattended. He has no old records in the computer, but did receive a colonoscopy by our group (in office) about 3-4 years ago. He has no blood in the stools, and no fevers since admit. He has had a negative CT A/P in regards to the liver; EtOH history is not known, but of note, the albumin is quite low on admission. Past History Past Medical History: diabetes, hypertension, stroke Past Surgical History: Other Social history: other (Unknown) Family history: other (Unknown) Medications and Allergies Allergies Allergy/AdvReac Type Severity Reaction Status Date / Time No Known Allergies Allergy Unverified 07/26/20 18:56 Active Meds: Active Medications Acetaminophen (Acetaminophen 325 Mg Tab) 650 mg PO Q6H PRN PRN Reason: Pain MILD(1-3)/Fever >100.5/[place] Aspirin (Aspirin 325 Mg Tab) 325 mg PO QDAY VALERI Last Admin: 07/27/20 12:12 Dose: Not Given Documented by: Bisacodyl (Bisacodyl 10 Mg Rect Supp) 10 mg RI QDAY PRN PRN Reason: Constipation Dextrose (Dextrose 50% In Water (25gm) 50 Ml Syringe) 0 ml IV Q30MIN PRN; Protocol PRN Reason: Hypoglycemia Last Admin: 07/27/20 11:24 Dose: 50 ml Documented by: Heparin Sodium (Porcine) (Heparin 5,000 Unit/1 Ml Vial) 5,000 unit SUB-Q Q12HR VALERI Last Admin: 07/27/20 10:00 Dose: Not Given Documented by: NORepinephrine/NS 8 MG-250 ML (Norepinephrine/Ns 8 Mg-250 Ml (Double Conc)) 8 mg in 250 mls @ 3.75 mls/hr IV TITRATE VALERI; Protocol Last Titration: 07/27/20 17:02 Dose: 6 mcg/min, 11.25 mls/hr Documented by: Sodium Chloride (Nacl 0.9%) 100 mls @ 999 mls/hr IV SOLEDAD PRN PRN Reason: Hypotension Sodium Bicarbonate 150 meq/ (Dextrose) 1,150 mls @ 150 mls/hr IV DIRECT VALERI Stop: 07/30/20 20:39 Cefepime HCl (Cefepime/Ns 2 Gm/100 Ml) 2 gm in 100 mls @ 200 mls/hr IV Q24H VALERI; Protocol Last Admin: 07/27/20 17:00 Dose: 200 mls/hr Documented by: Insulin Human Lispro (Insulin Lispro 100 Unit/Ml) 0 unit SUB-Q ACHS VALERI; Protocol Last Admin: 07/27/20 17:27 Dose: Not Given Documented by: Magnesium Hydroxide (Magnesium Hydroxide (Mom) Oral Liqd Udc) 30 ml PO Q4H PRN PRN Reason: Constipation Metoclopramide HCl (Metoclopramide 10 Mg Tab) 5 mg PO Q6H PRN PRN Reason: Nausea And Vomiting Morphine Sulfate (Morphine 2 Mg/1 Ml Inj) 2 mg IV Q4H PRN PRN Reason: Pain, Moderate (4-6) Ondansetron HCl (Ondansetron 4 Mg/2 Ml Inj) 4 mg IV Q8H PRN PRN Reason: Nausea And Vomiting Promethazine HCl (Promethazine 25 Mg Rect Supp) 25 mg RI Q6H PRN PRN Reason: Nausea And Vomiting Sodium Chloride (Sodium Chloride 0.9% 10 Ml Flush Syringe) 10 ml IV BID [facility] Last Admin: 07/27/20 12:15 Dose: Not Given Documented by: Sodium Chloride (Sodium Chloride 0.9% 10 Ml Flush Syringe) 10 ml IV PRN PRN PRN Reason: LINE FLUSH I HAVE REVIEWED/RECONCILED HOME MEDS Review of Systems - Review of Systems ROS unobtainable: due to mental status Exam - Constitutional Vital Signs: Temp Pulse Resp BP Pulse Ox 97.9 F 99 H 26 H 107/80 100 07/27/20 16:03 07/27/20 14:15 07/27/20 14:15 07/27/20 14:15 07/27/20 11:31 General appearance: mild distress ((respiratory)) - EENT Eyes: PERRL, EOM intact ENT: hearing intact, clear oral mucosa - Neck Neck: supple, normal ROM - Respiratory Respiratory effort: labored Respiratory: bilateral: CTA (BiPAP) - Cardiovascular Rhythm: regular Heart Sounds: Present: S1 & S2 Extremities: no ischemia, No edema - Gastrointestinal General gastrointestinal: Present: soft, non-tender, non-distended - Integumentary Integumentary: Present: clear, warm, dry - Neurologic Neurological: other (Not oriented/does not follow commands) - Labs CBC & Chem 7: 07/27/20 Unknown 07/27/20 Unknown Lab Results: Laboratory Results - last 24 hr 07/26/20 07/26/20 07/26/20 18:33 18:33 18:33 WBC 19.0 H RBC 3.50 L Hgb 12.1 Hct 37.0 MCV 106 H MCH 35 H MCHC 33 RDW 14.8 Plt Count 259 Add Manual Diff Complete Total Counted 100 Seg Neutrophils % [employer] Super[employer] Seg Neuts % (Manual) 96.0 H Band Neutrophils % 1.0 Lymphocytes % (Manual) 3.0 L Metamyelocytes % Nucleated RBC % Not Reportable Seg Neutrophils # Man 18.2 H Band Neutrophils # 0.2 Lymphocytes # (Manual) 0.6 L Abs React Lymphs (Man) 0.0 Monocytes # (Manual) 0.0 Eosinophils # (Manual) 0.0 Basophils # (Manual) 0.0 Metamyelocytes # 0.0 Myelocytes # 0.0 Promyelocytes # 0.0 Blast Cells # 0.0 WBC Morphology Not Reportable Hypersegmented Neuts Not Reportable Hyposegmented Neuts Not Reportable Hypogranular Neuts Not Reportable Smudge Cells Not Reportable Toxic Granulation Not Reportable Toxic Vacuolation Not Reportable Dohle Bodies Not Reportable Pelger-Huet Anomaly Not Reportable Patrica Rods Not Reportable Platelet Estimate Consistent w auto Clumped Platelets Not Reportable Plt Clumps, EDTA Not Reportable Large Platelets Not Reportable Giant Platelets Not Reportable Platelet Satelliting Not Reportable Plt Morphology Comment Not Reportable RBC Morphology Normal Dimorphic RBCs Not Reportable Polychromasia Not Reportable Hypochromasia Not Reportable Poikilocytosis Not Reportable Anisocytosis Not Reportable Microcytosis Not Reportable Macrocytosis Not Reportable Spherocytes Not Reportable Pappenheimer Bodies Not Reportable Sickle Cells Not Reportable Target Cells Not Reportable Tear Drop Cells Not Reportable Ovalocytes Not Reportable Helmet Cells Not Reportable [place] Bodies Not Reportable [place] Rings Not Reportable Reggie Cells Not Reportable Bite Cells Not Reportable Crenated Cell Not Reportable Elliptocytes Not Reportable Acanthocytes (Spur) Not Reportable Rouleaux Not Reportable Hemoglobin C Crystals Not Reportable Schistocytes Not Reportable Malaria parasites Not Reportable Curtis Bodies Not Reportable Hem Pathologist Commnt No PT 22.9 H INR 1.96 H APTT 42.3 H ABG pH POC ABG pCO2 POC ABG pO2 POC ABG HCO3 ABG O2 Saturation POC ABG Base Excess ABG Hemoglobin ABG Oxyhemoglobin ABG Methemoglobin ABG Sodium ABG Potassium ABG Chloride ABG Glucose Carboxyhemoglobin FiO2 % Sodium 127 L Potassium 6.0 H Chloride 88.4 L Carbon Dioxide 10 L Anion Gap 35 BUN 84 H Creatinine 6.0 H Estimated GFR 11 BUN/Creatinine Ratio 14 Glucose 157 H POC Glucose Lactic Acid Calcium 8.6 Total Bilirubin 0.90 Direct Bilirubin Indirect Bilirubin AST 948 H ALT 292 H Alkaline Phosphatase 59 Total Creatine Kinase Troponin T Total Protein 5.2 L Albumin 2.0 L Albumin/Globulin Ratio 0.6 Triglycerides Cholesterol LDL Cholesterol Direct HDL Cholesterol Cholesterol/HDL Ratio Arterial Blood Glucose Arterial Blood Ionized Calcium Urine Color Urine Turbidity Urine pH Ur Specific [place] Urine Protein Urine Glucose (UA) Urine Ketones Urine Blood Urine Nitrite Urine Bilirubin Urine Urobilinogen Ur Leukocyte Esterase Urine WBC (Auto) Urine RBC (Auto) U Epithel Cells (Auto) Urine Bacteria (Auto) Urine WBC Clumps Hepatitis A IgM Ab Hep Bs Antigen Hep B Core IgM Ab Hepatitis C Antibody 07/26/20 07/26/20 07/26/20 18:33 19:16 20:14 WBC RBC Hgb Hct MCV MCH MCHC RDW Plt Count Add Manual Diff Total Counted Seg Neutrophils % Seg Neuts % (Manual) Band Neutrophils % Lymphocytes % (Manual) Metamyelocytes % Nucleated RBC % Seg Neutrophils # Man Band Neutrophils # Lymphocytes # (Manual) Abs React Lymphs (Man) Monocytes # (Manual) Eosinophils # (Manual) Basophils # (Manual) Metamyelocytes # Myelocytes # Promyelocytes # Blast Cells # WBC Morphology Hypersegmented Neuts Hyposegmented Neuts Hypogranular Neuts Smudge Cells Toxic Granulation Toxic Vacuolation Dohle Bodies Pelger-Huet Anomaly Patrica Rods Platelet Estimate Clumped Platelets Plt Clumps, EDTA Large Platelets Giant Platelets Platelet Satelliting Plt Morphology Comment RBC Morphology Dimorphic RBCs Polychromasia Hypochromasia Poikilocytosis Anisocytosis Microcytosis Macrocytosis Spherocytes Pappenheimer Bodies Sickle Cells Target Cells Tear Drop Cells Ovalocytes Helmet Cells [place] Bodies [place] Rings Reggie Cells Bite Cells Crenated Cell Elliptocytes Acanthocytes (Spur) Rouleaux Hemoglobin C Crystals Schistocytes Malaria parasites Curtis Bodies Hem Pathologist Commnt PT INR APTT ABG pH 7.182 L POC ABG pCO2 29.7 L POC ABG pO2 28.5 L POC ABG HCO3 10.9 ABG O2 Saturation 36.3 POC ABG Base Excess -16.0 ABG Hemoglobin 14.1 ABG Oxyhemoglobin 36.0 L ABG Methemoglobin 0.6 ABG Sodium 130.1 L ABG Potassium 5.4 H ABG Chloride 96.0 L ABG Glucose 72 Carboxyhemoglobin 0.3 L FiO2 % 100.0 Sodium Potassium Chloride Carbon Dioxide Anion Gap BUN Creatinine Estimated GFR BUN/Creatinine Ratio Glucose POC Glucose Lactic Acid 13.00 H* Calcium Total Bilirubin Direct Bilirubin Indirect Bilirubin AST ALT Alkaline Phosphatase Total Creatine Kinase Troponin T 0.113 H* Total Protein Albumin Albumin/Globulin Ratio Triglycerides 173 H Cholesterol 87 LDL Cholesterol Direct 36 L HDL Cholesterol 28 L Cholesterol/HDL Ratio 3.10 Arterial Blood Glucose 72 Arterial Blood Ionized Calcium 4.5 L Urine Color Urine Turbidity Urine pH Ur Specific [place] Urine Protein Urine Glucose (UA) Urine Ketones Urine Blood Urine Nitrite Urine Bilirubin Urine Urobilinogen Ur Leukocyte Esterase Urine WBC (Auto) Urine RBC (Auto) U Epithel Cells (Auto) Urine Bacteria (Auto) Urine WBC Clumps Hepatitis A IgM Ab Hep Bs Antigen Hep B Core IgM Ab Hepatitis C Antibody 07/26/20 07/26/20 07/26/20 21:02 21:07 23:03 WBC RBC Hgb Hct MCV MCH MCHC RDW Plt Count Add Manual Diff Total Counted Seg Neutrophils % Seg Neuts % (Manual) Band Neutrophils % Lymphocytes % (Manual) Metamyelocytes % Nucleated RBC % Seg Neutrophils # Man Band Neutrophils # Lymphocytes # (Manual) Abs React Lymphs (Man) Monocytes # (Manual) Eosinophils # (Manual) Basophils # (Manual) Metamyelocytes # Myelocytes # Promyelocytes # Blast Cells # WBC Morphology Hypersegmented Neuts Hyposegmented Neuts Hypogranular Neuts Smudge Cells Toxic Granulation Toxic Vacuolation Dohle Bodies Pelger-Huet Anomaly Patrica Rods Platelet Estimate Clumped Platelets Plt Clumps, EDTA Large Platelets Giant Platelets Platelet Satelliting Plt Morphology Comment RBC Morphology Dimorphic RBCs Polychromasia Hypochromasia Poikilocytosis Anisocytosis Microcytosis Macrocytosis Spherocytes Pappenheimer Bodies Sickle Cells Target Cells Tear Drop Cells Ovalocytes Helmet Cells [place] Bodies [place] Reggie Cells Bite Cells Crenated Cell Elliptocytes Acanthocytes (Spur) Rouleaux Hemoglobin C Crystals Schistocytes Malaria parasites Curtis Bodies Hem Pathologist Commnt PT INR APTT ABG pH POC ABG pCO2 POC ABG pO2 POC ABG HCO3 ABG O2 Saturation POC ABG Base Excess ABG Hemoglobin ABG Oxyhemoglobin ABG Methemoglobin ABG Sodium ABG Potassium ABG Chloride ABG Glucose Carboxyhemoglobin FiO2 % Sodium Potassium Chloride Carbon Dioxide Anion Gap BUN Creatinine Estimated GFR BUN/Creatinine Ratio Glucose POC Glucose 85 Lactic Acid 8.90 H* 3.40 H* Calcium Total Bilirubin Direct Bilirubin Indirect Bilirubin AST ALT Alkaline Phosphatase Total Creatine Kinase Troponin T Total Protein Albumin Albumin/Globulin Ratio Triglycerides Cholesterol LDL Cholesterol Direct HDL Cholesterol Cholesterol/HDL Ratio Arterial Blood Glucose Arterial Blood Ionized Calcium Urine Color Urine Turbidity Urine pH Ur Specific [place] Urine Protein Urine Glucose (UA) Urine Ketones Urine Blood Urine Nitrite Urine Bilirubin Urine Urobilinogen Ur Leukocyte Esterase Urine WBC (Auto) Urine RBC (Auto) U Epithel Cells (Auto) Urine Bacteria (Auto) Urine WBC Clumps Hepatitis A IgM Ab Hep Bs Antigen Hep B Core IgM Ab Hepatitis C Antibody 07/27/20 07/27/20 07/27/20 00:52 01:57 03:00 WBC RBC Hgb Hct MCV MCH MCHC RDW Plt Count Add Manual Diff Total Counted Seg Neutrophils % Seg Neuts % (Manual) Band Neutrophils % Lymphocytes % (Manual) Metamyelocytes % Nucleated RBC % Seg Neutrophils # Man Band Neutrophils # Lymphocytes # (Manual) Abs React Lymphs (Man) Monocytes # (Manual) Eosinophils # (Manual) Basophils # (Manual) Metamyelocytes # Myelocytes # Promyelocytes # Blast Cells # WBC Morphology Hypersegmented Neuts Hyposegmented Neuts Hypogranular Neuts Smudge Cells Toxic Granulation Toxic Vacuolation Dohle Bodies Pelger-Huet Anomaly Patrica Rods Platelet Estimate Clumped Platelets Plt Clumps, EDTA Large Platelets Giant Platelets Platelet Satelliting Plt Morphology Comment RBC Morphology Dimorphic RBCs Polychromasia Hypochromasia Poikilocytosis Anisocytosis Microcytosis Macrocytosis Spherocytes Pappenheimer Bodies Sickle Cells Target Cells Tear Drop Cells Ovalocytes Helmet Cells [place] Bodies [place] Reggie Cells Bite Cells Crenated Cell Elliptocytes Acanthocytes (Spur) Rouleaux Hemoglobin C Crystals Schistocytes Malaria parasites Curtis Bodies Hem Pathologist Commnt PT INR APTT ABG pH POC ABG pCO2 POC ABG pO2 POC ABG HCO3 ABG O2 Saturation POC ABG Base Excess ABG Hemoglobin ABG Oxyhemoglobin ABG Methemoglobin ABG Sodium ABG Potassium ABG Chloride ABG Glucose Carboxyhemoglobin FiO2 % Sodium Potassium Chloride Carbon Dioxide Anion Gap BUN Creatinine Estimated GFR BUN/Creatinine Ratio Glucose POC Glucose Lactic Acid 2.80 H* Calcium Total Bilirubin Direct Bilirubin Indirect Bilirubin AST ALT Alkaline Phosphatase Total Creatine Kinase 3551 H Troponin T Total Protein Albumin Albumin/Globulin Ratio Triglycerides Cholesterol LDL Cholesterol Direct HDL Cholesterol Cholesterol/HDL Ratio Arterial Blood Glucose Arterial Blood Ionized Calcium Urine Color Diane Urine Turbidity Turbid Urine pH 5.0 Ur Specific [place] 1.014 Urine Protein 100 mg/dl Urine Glucose (UA) 50 Urine Ketones Neg Urine Blood Lg Urine Nitrite Neg Urine Bilirubin Neg Urine Urobilinogen < 2.0 Ur Leukocyte Esterase Lg Urine WBC (Auto) > 182.0 H Urine RBC (Auto) 153.0 U Epithel Cells (Auto) 1.0 Urine Bacteria (Auto) 2+ Urine WBC Clumps 3+ Hepatitis A IgM Ab Hep Bs Antigen Hep B Core IgM Ab Hepatitis C Antibody 07/27/20 07/27/20 07/27/20 03:00 07:21 07:21 WBC RBC Hgb Hct MCV MCH MCHC RDW Plt Count Add Manual Diff Total Counted Seg Neutrophils % Seg Neuts % (Manual) Band Neutrophils % Lymphocytes % (Manual) Metamyelocytes % Nucleated RBC % Seg Neutrophils # Man Band Neutrophils # Lymphocytes # (Manual) Abs React Lymphs (Man) Monocytes # (Manual) Eosinophils # (Manual) Basophils # (Manual) Metamyelocytes # Myelocytes # Promyelocytes # Blast Cells # WBC Morphology Hypersegmented Neuts Hyposegmented Neuts Hypogranular Neuts Smudge Cells Toxic Granulation Toxic Vacuolation Dohle Bodies Pelger-Huet Anomaly Patrica Rods Platelet Estimate Clumped Platelets Plt Clumps, EDTA Large Platelets Giant Platelets Platelet Satelliting Plt Morphology Comment RBC Morphology Dimorphic RBCs Polychromasia Hypochromasia Poikilocytosis Anisocytosis Microcytosis Macrocytosis Spherocytes Pappenheimer Bodies Sickle Cells Target Cells Tear Drop Cells Ovalocytes Helmet Cells [place] Bodies [place] Cells Bite Cells Crenated Cell Elliptocytes Acanthocytes (Spur) Rouleaux Hemoglobin C Crystals Schistocytes Malaria parasites Curtis Bodies Hem Pathologist Commnt PT INR APTT ABG pH POC ABG pCO2 POC ABG pO2 POC ABG HCO3 ABG O2 Saturation POC ABG Base Excess ABG Hemoglobin ABG Oxyhemoglobin ABG Methemoglobin ABG Sodium ABG Potassium ABG Chloride ABG Glucose Carboxyhemoglobin FiO2 % Sodium Potassium Chloride Carbon Dioxide Anion Gap BUN Creatinine Estimated GFR BUN/Creatinine Ratio Glucose POC Glucose Lactic Acid 2.60 H* 4.00 H* Calcium Total Bilirubin Direct Bilirubin Indirect Bilirubin AST ALT Alkaline Phosphatase Total Creatine Kinase Troponin T Total Protein Albumin Albumin/Globulin Ratio Triglycerides Cholesterol LDL Cholesterol Direct HDL Cholesterol Cholesterol/HDL Ratio Arterial Blood Glucose Arterial Blood Ionized Calcium Urine Color Urine Turbidity Urine pH Ur Specific [place] Urine Protein Urine Glucose (UA) Urine Ketones Urine Blood Urine Nitrite Urine Bilirubin Urine Urobilinogen Ur Leukocyte Esterase Urine WBC (Auto) Urine RBC (Auto) U Epithel Cells (Auto) Urine Bacteria (Auto) Urine WBC Clumps Hepatitis A IgM Ab Non-reactive Hep Bs Antigen Non-reactive Hep B Core IgM Ab Non-reactive Hepatitis C Antibody Non-reactive 07/27/20 07/27/20 07/27/20 08:49 11:16 11:54 WBC RBC Hgb Hct MCV MCH MCHC RDW Plt Count Add Manual Diff Total Counted Seg Neutrophils % Seg Neuts % (Manual) Band Neutrophils % Lymphocytes % (Manual) Metamyelocytes % Nucleated RBC % Seg Neutrophils # Man Band Neutrophils # Lymphocytes # (Manual) Abs React Lymphs (Man) Monocytes # (Manual) Eosinophils # (Manual) Basophils # (Manual) Metamyelocytes # Myelocytes # Promyelocytes # Blast Cells # WBC Morphology Hypersegmented Neuts Hyposegmented Neuts Hypogranular Neuts Smudge Cells Toxic Granulation Toxic Vacuolation Dohle Bodies Pelger-Huet Anomaly Patrica Rods Platelet Estimate Clumped Platelets Plt Clumps, EDTA Large Platelets Giant Platelets Platelet Satelliting Plt Morphology Comment RBC Morphology Dimorphic RBCs Polychromasia Hypochromasia Poikilocytosis Anisocytosis Microcytosis Macrocytosis Spherocytes Pappenheimer Bodies Sickle Cells Target Cells Tear Drop Cells Ovalocytes Helmet Cells [place] Bodies [place] Cells Bite Cells Crenated Cell Elliptocytes Acanthocytes (Spur) Rouleaux Hemoglobin C Crystals Schistocytes Malaria parasites Curtis Bodies Hem Pathologist Commnt PT INR APTT ABG pH POC ABG pCO2 POC ABG pO2 POC ABG HCO3 ABG O2 Saturation POC ABG Base Excess ABG Hemoglobin ABG Oxyhemoglobin ABG Methemoglobin ABG Sodium ABG Potassium ABG Chloride ABG Glucose Carboxyhemoglobin FiO2 % Sodium Potassium Chloride Carbon Dioxide Anion Gap BUN Creatinine Estimated GFR BUN/Creatinine Ratio Glucose POC Glucose 76 29 L 71 Lactic Acid Calcium Total Bilirubin Direct Bilirubin Indirect Bilirubin AST ALT Alkaline Phosphatase Total Creatine Kinase Troponin T Total Protein Albumin Albumin/Globulin Ratio Triglycerides Cholesterol LDL Cholesterol Direct HDL Cholesterol Cholesterol/HDL Ratio Arterial Blood Glucose Arterial Blood Ionized Calcium Urine Color Urine Turbidity Urine pH Ur Specific [place] Urine Protein Urine Glucose (UA) Urine Ketones Urine Blood Urine Nitrite Urine Bilirubin Urine Urobilinogen Ur Leukocyte Esterase Urine WBC (Auto) Urine RBC (Auto) U Epithel Cells (Auto) Urine Bacteria (Auto) Urine WBC Clumps Hepatitis A IgM Ab Hep Bs Antigen Hep B Core IgM Ab Hepatitis C Antibody 07/27/20 07/27/20 07/27/20 12:50 13:12 13:26 WBC RBC Hgb Hct MCV MCH MCHC RDW Plt Count Add Manual Diff Total Counted Seg Neutrophils % Seg Neuts % (Manual) Band Neutrophils % Lymphocytes % (Manual) Metamyelocytes % Nucleated RBC % Seg Neutrophils # Man Band Neutrophils # Lymphocytes # (Manual) Abs React Lymphs (Man) Monocytes # (Manual) Eosinophils # (Manual) Basophils # (Manual) Metamyelocytes # Myelocytes # Promyelocytes # Blast Cells # WBC Morphology Hypersegmented Neuts Hyposegmented Neuts Hypogranular Neuts Smudge Cells Toxic Granulation Toxic Vacuolation Dohle Bodies Pelger-Huet Anomaly Patrica Rods Platelet Estimate Clumped Platelets Plt Clumps, EDTA Large Platelets Giant Platelets Platelet Satelliting Plt Morphology Comment RBC Morphology Dimorphic RBCs Polychromasia Hypochromasia Poikilocytosis Anisocytosis Microcytosis Macrocytosis Spherocytes Pappenheimer Bodies Sickle Cells Target Cells Tear Drop Cells Ovalocytes Helmet Cells [place] Bodies [place] Rings Reggie Cells Bite Cells Crenated Cell Elliptocytes Acanthocytes (Spur) Rouleaux Hemoglobin C Crystals Schistocytes Malaria parasites Curtis Bodies Hem Pathologist Commnt PT INR APTT ABG pH 7.372 POC ABG pCO2 24.4 L POC ABG pO2 446.8 H POC ABG HCO3 13.9 ABG O2 Saturation 99.7 POC ABG Base Excess -9.5 ABG Hemoglobin 13.3 ABG Oxyhemoglobin 99.0 H ABG Methemoglobin 0.4 ABG Sodium 128.9 L ABG Potassium 3.8 ABG Chloride 99.0 ABG Glucose 552 H Carboxyhemoglobin 0.3 L FiO2 % 100.0 Sodium Potassium Chloride Carbon Dioxide Anion Gap BUN Creatinine Estimated GFR BUN/Creatinine Ratio Glucose POC Glucose 33 L 43 L Lactic Acid Calcium Total Bilirubin Direct Bilirubin Indirect Bilirubin AST ALT Alkaline Phosphatase Total Creatine Kinase Troponin T Total Protein Albumin Albumin/Globulin Ratio Triglycerides Cholesterol LDL Cholesterol Direct HDL Cholesterol Cholesterol/HDL Ratio Arterial Blood Glucose 552 H Arterial Blood Ionized Calcium 4.1 L Urine Color Urine Turbidity Urine pH Ur Specific [place] Urine Protein Urine Glucose (UA) Urine Ketones Urine Blood Urine Nitrite Urine Bilirubin Urine Urobilinogen Ur Leukocyte Esterase Urine WBC (Auto) Urine RBC (Auto) U Epithel Cells (Auto) Urine Bacteria (Auto) Urine WBC Clumps Hepatitis A IgM Ab Hep Bs Antigen Hep B Core IgM Ab Hepatitis C Antibody 07/27/20 07/27/20 07/27/20 13:33 17:21 Unknown WBC RBC Hgb Hct MCV MCH MCHC RDW Plt Count Add Manual Diff Total Counted Seg Neutrophils % Seg Neuts % (Manual) Band Neutrophils % Lymphocytes % (Manual) Metamyelocytes % Nucleated RBC % Seg Neutrophils # Man Band Neutrophils # Lymphocytes # (Manual) Abs React Lymphs (Man) Monocytes # (Manual) Eosinophils # (Manual) Basophils # (Manual) Metamyelocytes # Myelocytes # Promyelocytes # Blast Cells # WBC Morphology Hypersegmented Neuts Hyposegmented Neuts Hypogranular Neuts Smudge Cells Toxic Granulation Toxic Vacuolation Dohle Bodies Pelger-Huet Anomaly Patrica Rods Platelet Estimate Clumped Platelets Plt Clumps, EDTA Large Platelets Giant Platelets Platelet Satelliting Plt Morphology Comment RBC Morphology Dimorphic RBCs Polychromasia Hypochromasia Poikilocytosis Anisocytosis Microcytosis Macrocytosis Spherocytes Pappenheimer Bodies Sickle Cells Target Cells Tear Drop Cells Ovalocytes Helmet Cells [place] Bodies [place] Cells Bite Cells Crenated Cell Elliptocytes Acanthocytes (Spur) Rouleaux Hemoglobin C Crystals Schistocytes Malaria parasites Curtis Bodies Hem Pathologist Commnt PT INR APTT ABG pH POC ABG pCO2 POC ABG pO2 POC ABG HCO3 ABG O2 Saturation POC ABG Base Excess ABG Hemoglobin ABG Oxyhemoglobin ABG Methemoglobin ABG Sodium ABG Potassium ABG Chloride ABG Glucose Carboxyhemoglobin FiO2 % Sodium Potassium Chloride Carbon Dioxide Anion Gap BUN Creatinine Estimated GFR BUN/Creatinine Ratio Glucose POC Glucose 405 H 132 H Lactic Acid Calcium Total Bilirubin Direct Bilirubin Indirect Bilirubin AST ALT Alkaline Phosphatase Total Creatine Kinase Troponin T 0.159 H* D Total Protein Albumin Albumin/Globulin Ratio Triglycerides Cholesterol LDL Cholesterol Direct HDL Cholesterol Cholesterol/HDL Ratio Arterial Blood Glucose Arterial Blood Ionized Calcium Urine Color Urine Turbidity Urine pH Ur Specific [place] Urine Protein Urine Glucose (UA) Urine Ketones Urine Blood Urine Nitrite Urine Bilirubin Urine Urobilinogen Ur Leukocyte Esterase Urine WBC (Auto) Urine RBC (Auto) U Epithel Cells (Auto) Urine Bacteria (Auto) Urine WBC Clumps Hepatitis A IgM Ab Hep Bs Antigen Hep B Core IgM Ab Hepatitis C Antibody 07/27/20 07/27/20 07/27/20 Unknown Unknown Unknown WBC RBC Hgb Hct MCV MCH MCHC RDW Plt Count Add Manual Diff Total Counted Seg Neutrophils % Seg Neuts % (Manual) Band Neutrophils % Lymphocytes % (Manual) Metamyelocytes % Nucleated RBC % Seg Neutrophils # Man Band Neutrophils # Lymphocytes # (Manual) Abs React Lymphs (Man) Monocytes # (Manual) Eosinophils # (Manual) Basophils # (Manual) Metamyelocytes # Myelocytes # Promyelocytes # Blast Cells # WBC Morphology Hypersegmented Neuts Hyposegmented Neuts Hypogranular Neuts Smudge Cells Toxic Granulation Toxic Vacuolation Dohle Bodies Pelger-Huet Anomaly Patrica Rods Platelet Estimate Clumped Platelets Plt Clumps, EDTA Large Platelets Giant Platelets Platelet Satelliting Plt Morphology Comment RBC Morphology Dimorphic RBCs Polychromasia Hypochromasia Poikilocytosis Anisocytosis Microcytosis Macrocytosis Spherocytes Pappenheimer Bodies Sickle Cells Target Cells Tear Drop Cells Ovalocytes Helmet Cells [place] Bodies [place] Reggie Cells Bite Cells Crenated Cell Elliptocytes Acanthocytes (Spur) Rouleaux Hemoglobin C Crystals Schistocytes Malaria parasites Curtis Bodies Hem Pathologist Commnt PT INR APTT ABG pH POC ABG pCO2 POC ABG pO2 POC ABG HCO3 ABG O2 Saturation POC ABG Base Excess ABG Hemoglobin ABG Oxyhemoglobin ABG Methemoglobin ABG Sodium ABG Potassium ABG Chloride ABG Glucose Carboxyhemoglobin FiO2 % Sodium 134 L D Potassium 4.3 D Chloride 95.9 L Carbon Dioxide 18 L D Anion Gap 24 BUN 86 H Creatinine 5.4 H Estimated GFR 12 BUN/Creatinine Ratio 16 Glucose 143 H POC Glucose Lactic Acid 3.40 H* Calcium 8.3 L Total Bilirubin Direct Bilirubin Indirect Bilirubin AST ALT Alkaline Phosphatase Total Creatine Kinase 7505 H Troponin T Total Protein Albumin Albumin/Globulin Ratio Triglycerides Cholesterol LDL Cholesterol Direct HDL Cholesterol Cholesterol/HDL Ratio Arterial Blood Glucose Arterial Blood Ionized Calcium Urine Color Urine Turbidity Urine pH Ur Specific Douglas Urine Protein Urine Glucose (UA) Urine Ketones Urine Blood Urine Nitrite Urine Bilirubin Urine Urobilinogen Ur Leukocyte Esterase Urine WBC (Auto) Urine RBC (Auto) U Epithel Cells (Auto) Urine Bacteria (Auto) Urine WBC Clumps Hepatitis A IgM Ab Hep Bs Antigen Hep B Core IgM Ab Hepatitis C Antibody 07/27/20 07/27/20 Unknown Unknown WBC 17.2 H RBC 4.26 Hgb 14.6 Hct 43.7 D MCV 103 H MCH 34 H MCHC 34 RDW 14.8 Plt Count 229 Add Manual Diff Complete Total Counted 100 Seg Neutrophils % [employer] Goods Supervisor Seg Neuts % (Manual) 56.0 Band Neutrophils % 36.0 Lymphocytes % (Manual) 7.0 L Metamyelocytes % 1.0 Nucleated RBC % Not Reportable Seg Neutrophils # Man 9.6 H Band Neutrophils # 6.2 Lymphocytes # (Manual) 1.2 Abs React Lymphs (Man) 0.0 Monocytes # (Manual) 0.0 Eosinophils # (Manual) 0.0 Basophils # (Manual) 0.0 Metamyelocytes # 0.2 Myelocytes # 0.0 Promyelocytes # 0.0 Blast Cells # 0.0 WBC Morphology Not Reportable Hypersegmented Neuts Not Reportable Hyposegmented Neuts Not Reportable Hypogranular Neuts Not Reportable Smudge Cells Not Reportable Toxic Granulation Not Reportable Toxic Vacuolation Not Reportable Dohle Bodies Not Reportable Pelger-Huet Anomaly Not Reportable Patrica Rods Not Reportable Platelet Estimate Consistent w auto Clumped Platelets Rare Plt Clumps, EDTA Not Reportable Large Platelets Not Reportable Giant Platelets Not Reportable Platelet Satelliting Not Reportable Plt Morphology Comment Not Reportable RBC Morphology Not Reportable Dimorphic RBCs Not Reportable Polychromasia Not Reportable Hypochromasia Not Reportable Poikilocytosis Not Reportable Anisocytosis Few Microcytosis Not Reportable Macrocytosis 1+ Spherocytes Not Reportable Pappenheimer Bodies Not Reportable Sickle Cells Not Reportable Target Cells Not Reportable Tear Drop Cells Not Reportable Ovalocytes Not Reportable Helmet Cells Not Reportable [place] Bodies Not Reportable [place] Rings Not Reportable Reggie Cells Not Reportable Bite Cells Not Reportable Crenated Cell Not Reportable Elliptocytes Not Reportable Acanthocytes (Spur) Not Reportable Rouleaux Not Reportable Hemoglobin C Crystals Not Reportable Schistocytes Not Reportable Malaria parasites Not Reportable Curtis Bodies Not Reportable Hem Pathologist Commnt No PT INR APTT ABG pH POC ABG pCO2 POC ABG pO2 POC ABG HCO3 ABG O2 Saturation POC ABG Base Excess ABG Hemoglobin ABG Oxyhemoglobin ABG Methemoglobin ABG Sodium ABG Potassium ABG Chloride ABG Glucose Carboxyhemoglobin FiO2 % Sodium Potassium Chloride Carbon Dioxide Anion Gap BUN Creatinine Estimated GFR BUN/Creatinine Ratio Glucose POC Glucose Lactic Acid Calcium Total Bilirubin 1.20 Direct Bilirubin 0.7 H Indirect Bilirubin 0.5 AST 65 H ALT 1671 H Alkaline Phosphatase 86 Total Creatine Kinase Troponin T Total Protein 6.0 L Albumin 2.3 L Albumin/Globulin Ratio 0.6 Triglycerides Cholesterol LDL Cholesterol Direct HDL Cholesterol Cholesterol/HDL Ratio Arterial Blood Glucose Arterial Blood Ionized Calcium Urine Color Urine Turbidity Urine pH Ur Specific Douglas Urine Protein Urine Glucose (UA) Urine Ketones Urine Blood Urine Nitrite Urine Bilirubin Urine Urobilinogen Ur Leukocyte Esterase Urine WBC (Auto) Urine RBC (Auto) U Epithel Cells (Auto) Urine Bacteria (Auto) Urine WBC Clumps Hepatitis A IgM Ab Hep Bs Antigen Hep B Core IgM Ab Hepatitis C Antibody Assessment and Plan - Patient Problems (1) Elevated liver enzymes Current Visit: Yes Status: Acute Plan to address problem: - The patient likely has shock liver/acute ischemia, confounded by rhabdomyolysis. - Agree with aggressive hydration, and BP support. - Hepatitis serologies negative, and no obvious mass or cirrhosis on imaging. - Will monitor conservatively for now.
[2020-07-27 18:27] LABS: Creatinine,Urine 49.3 mg/dL (0.1-20.0); Protein/Creatinine Ratio,Urine 1.2
[2020-07-27] MEDS ORDERED: SODIUM CHLORIDE 0.9% 1000 ML 1,000 ML ONE (20:50)
[2020-07-27] MEDS ORDERED: SODIUM CHLORIDE 0.9% 1000 ML 1,000 ML IV ONE ×2 (20:50→22:22)
[2020-07-27 22:06] LABS: Albumin 1.5 g/dL (3.9-5); Calcium 7.1 mg/dL (8.4-10.2)
[2020-07-27] MEDS ORDERED: VASOPRESSIN 20 UNIT in SODIUM CHLORIDE 0.9% 100 ML IV SCH (23:00)
[2020-07-28] MEDS ORDERED: LIP THERAPY VASELINE TP PRN (00:02)
[2020-07-28] MEDS ORDERED: MINERAL OIL/PETROLATUM, WHITE OPHTH OINT 3.5 GM OU PRN (00:02)
--- NOTE | 2020-07-28 00:37 | Consultation ---
DATE OF CONSULTATION: 07/27/2020 PULMONARY CRITICAL CARE CONSULTATION NOTE CONSULTING PHYSICIAN: Dr. Ru Leong. REASON FOR CONSULTATION: Septic shock. CHIEF COMPLAINT AND HISTORY OF PRESENT ILLNESS: As follows: The patient is a 80-year-old, obese male brought into the emergency room with right-sided weakness and changes in mental status yesterday. He was reportedly found by his neighbor in his car unresponsive and therefore, EMS was called. They found him with a blood glucose of about 30. He was hypotensive, systolic blood pressures in the 70s. In the emergency room, he was a little bit more responsive, but required bilevel positive airway pressure ventilation therapy. Workup revealed an elevated white count, lactic acidosis, sepsis. It was presumed secondary to urinary tract infection. He was kept on continuous BiPAP and we are asked to assist with management. Of note, he came in as a stroke alert and was seen by the Neurology Team. The plan was not a candidate for TPA as it had been greater four and half hours. He did not have any large vessel occlusion. He was started on secondary prevention therapy. When I stopped by to see him, he was resting in bed, moaning mostly, but he was able to respond appropriately. He seems to deny being in pain. He had a BiPAP mask on his face and was on 100% oxygen and unable to give me much more of history. I do not have any history of vomiting or overt aspiration. The patient's tobacco use/abuse history is unclear or unknown at this point. The above is as much of the history of present illness as I have. PAST MEDICAL HISTORY: He is obese, otherwise unknown. PAST SURGICAL HISTORY: Unknown. MEDICATIONS: He was on at the time I stopped by to see him were reviewed. Pertinent medications included the following: Tylenol 650 mg p.o. q. 6 hours p.r.n. mild pain or fevers, aspirin 325 mg p.o. daily, Dulcolax 10 mg per rectum daily p.r.n., cefepime 2 grams IV daily, heparin 5000 units subcu q. 12 hours, insulin via sliding scale, milk of magnesia 30 mL p.o. q. 4 hours p.r.n. constipation, Reglan 5 mg p.o. q. 6 hours p.r.n. constipation, morphine sulfate 2 mg IV q. 4 hours p.r.n. moderate pain, Levophed drip was going at 8 mcg per minute, Zofran 4 mg IV q. 8 hours p.r.n. nausea and vomiting. He was on a sodium bicarbonate drip with 3 amps of bicarbonate per liter of the D5W running at 150 mL per hour. ALLERGIES: No known drug allergies. DIET: Obese gentleman, acute weight loss or gain history is unknown. FAMILY AND SOCIAL HISTORY: Apparently lived in the community. He was found by his neighbor. Alcohol, tobacco or illicit drug use or abuse history are unknown. FAMILY HISTORY: Otherwise unknown. REVIEW OF SYSTEMS: Unobtainable secondary to patient's medical and mental condition. Since he has been in the hospital, no gross hematochezia or melena, no gross hematuria, no hematemesis, no emesis, no witnessed seizures. He denies chest pain when I was in the room. Review of systems otherwise unobtainable or as in the body of history above. PHYSICAL EXAMINATION: VITAL SIGNS: At presentation over here, review of the vital signs, he was afebrile, temperature 97.6 degrees Fahrenheit, his pulse was 118, respiratory rate 27, blood pressure 82/31, blood pressure was 119/91, O2 sats were 96%. Inspired oxygen concentration was not recorded. When I stopped by to see him, he was on the noninvasive ventilator, iPAP 16, EPAP of 8, 100% FiO2. I think he is actually on the AVAPS. It is unclear what the target tidal volume is. GENERAL: Elderly looking, obese gentleman, normocephalic, atraumatic on the BiPAP machine with a mildly increased respiratory effort at rest. HEAD, EYES, EARS, NOSE, AND THROAT: Anicteric. No conjunctival erythema. Oropharynx appeared dry. NECK: No gross jugular venous distention. No thyromegaly. He has a large neck circumference. Grossly, there were no palpable lymph nodes in the supraclavicular or submandibular lymph node chains. LUNGS: Auscultation of both lung botello significant for good bilateral breath sounds, no wheezing. He did have right IJ vas cath in place. No significant bleeding around the stoma. HEART: Sounds 1 and 2 are heard at the time of my evaluation. Regular rate and rhythm without overt rubs or murmurs. ABDOMEN: Soft, full, protuberant. Bowel sounds are positive, nontender, no palpable hepatosplenomegaly. EXTREMITIES: Without overt digital clubbing or cyanosis, no pedal edema. Pedal pulses are 2+ bilaterally. NEUROLOGIC: Pupils are equal, round, about 4 mm, reactive to light. Extraocular muscle movements appeared intact. He had spontaneous movements to all extremities, but seemed to groan with movements. SKIN: Poor turgor in the areas examined without overt cellulitis or rash. He did have some abrasions to the shins anteriorly. Please see the wound care nurses' notes for full description of his skin. PSYCHIATRIC: Mood and affect appeared anxious. He had very poor judgment and insight. LABORATORY DATA: From my review are as follows: Admission white cell count 19,000, hemoglobin 12.1, hematocrit 37.0, platelet count 259. 1% band forms on the manual differential. INR 1.96. Arterial blood gas showed a pH of 7.18 at presentation, pCO2 of 30, pO2 of 30, 100% FiO2. It is believed that was a venous gas. Serum sodium at presentation 127, potassium 6.0, chloride 88, bicarbonate was 10, BUN 84, creatinine of 6.0, glucose of 157. Lactic acid level was 13.0. It is down to 4. AST was elevated at 948, ALT 292. Troponin 0.113. Urinalysis showed large leukocyte esterase, greater than 182 white cells per high power field. Hepatitis screen is negative. We have just repeated the ABGs, it showed a pO2 of 440 and pH, I believe, of about 7.33. I do not see any cultures. He has done multiple studies. A CT of the head was done at presentation, limited by motion artifact. No clear evidence of an acute bleed. CT angio of the neck; ICA plaque in the proximal right ICA. CT angio of the head, no clear CT evidence of large vessel occlusion. Post-procedure chest x-ray shows a right IJ with the tip in the distal SVC. CT scan of the chest was done, noncontrast CT scan. No acute process really. Ultrasound scan was done, I think actually a 2D echocardiogram, ejection fraction 45-50%. Trace acute tricuspid regurgitation. RV systolic elevated at 36. ASSESSMENT: 1. Severe sepsis with shock, presumably due to urinary tract infection. 2. Urinary tract infection 3. Acute toxic metabolic encephalopathy. 4. Acute kidney injury, possibly on chronic. 5. Obesity. 6. Leukocytosis. 7. Coagulopathy. INR 1.96. 8. Elevated serum transaminases, possible shock liver. 9. Metabolic acidosis, high anion gap. 10. Lactic acidosis. 11. Hyperkalemia. 12. Elevated serum troponin/non-ST elevation myocardial infarction. PLAN: He will be transferred to the intensive care unit. He already has a triple lumen in place in the right IJ, which would be my preferred position for vascular catheter placement. I will go ahead and place one Trialysis catheter __, so that he still can get vasopressors. I do feel hopefully, we should be able to get him off the vasopressor support quickly. In the meantime, we will keep him on bilevel positive airway pressure ventilation therapy for ventilatory support and oxygenation support. Aspiration precautions will be maintained. Oxygen will be weaned to keep sats greater than or equal to about 92% empirically. Coronavirus PCR testing will be done. He will be kept in contact in airborne isolation in the short time. I believe he has been seen by the infectious disease physician. I will defer to them for titration of anti-infective therapy and deescalation, I should say. He is appropriately on deep venous thrombosis prophylaxis. I am going to put him on GI prophylaxis with IV Pepcid. Ultrasounds of the lower extremities will be down as venous thromboembolic disease workup. I will also be getting a D-dimer level, especially if it looks like he was going to remain dialysis dependent, consideration will be given for a CT angiogram to evaluate for pulmonary emboli. Flu and pneumonia vaccination will be addressed per protocol. Thank you very much for the consult, Dr. Ru Leong. We will follow along and make further recommendations as picture progresses/becomes clearer. He is critically ill on life-sustaining interventions including Levophed and the continuous noninvasive ventilation at high risk of from cardiopulmonary and renal system decompensation. I should mention Nephrology has seen him and hyperkalemia has been addressed temporarily and he is tentatively for dialysis post-vas cath placement. At this time, I spent about 35-40 minutes of critical care time without overlap and excluding any procedural time that may be necessary. TID: [id number] RECEIPT: [id number] FRANCIS/CEFERINO BURR
--- NOTE | 2020-07-28 01:03 | Event Note ---
Date: 07/28/20 Patient developed acute respiratory failure. ABG shows pH is 6.917, PCO2 53.6 PO2 48.0. Patient is intubated by the ER physician Dr. Rowe as per critical care recommendation.
--- NOTE | 2020-07-28 01:23 | Event Note ---
Date: 07/28/20 Called by hospitalist, Dr. Evans, to intubate the patient. States ABG was reviewed by chief development officer, who recommended intubation. Respiratory therapist states sample is actually venous, because she was unable to obtain an arterial sample. Spoke with patient's ICU nurse who states patient has been "like this all night," meaning patient has been hypotensive and they have been unable to pick out hand any O2 saturations via the pulse oximeter. When I arrive, pt is on BiPAP, unable to pick out hand an O2 sat. Patient awake and alert. He was given etomidate 20 mg and intubated w/ the glidescope using 8.0 ET tube. Witnessed tube pass thru vocal cords. Color change on CO2 detector. Condenstation in tube. Equal breath sounds. CXR has been ordered by ICU attending.
[2020-07-28] MEDS: DEXTROSE 50% IN WATER (25GM) 50 ML SYRINGE IV PRN ×3 (01:48→03:33)
[2020-07-28] MEDS: NORepinephrine/NS 8 MG-250 ML 8 MG/250 ML INFUS..BTL IV SCH ×2 (01:50→06:20)
[2020-07-28] MEDS ORDERED: D5W/0.9% NACL 1,000 ML IV SCH (02:00)
--- NOTE | 2020-07-28 02:03 | XRay Report ---
CHEST 1 VIEW, 07/28/2020 12:18 AM CLINICAL INFORMATION/INDICATION: Endotracheal tube placement COMPARISON: Chest radiograph, 07/27/2020 at 4:38 PM FINDINGS: SUPPORT DEVICES: Endotracheal tube has been placed with tip approximately 5 cm above the level the ca yesenia. The right-sided central line remains in stable position. HEART: The cardiac silhouette is normal in size. LUNGS/PLEURA: The lungs are clear of focal airspace disease or significant pleural effusion. No pneum othorax is identified. ADDITIONAL FINDINGS: No additional acute findings. IMPRESSION: 1. Placement of endotracheal tube with tip approximately 5 cm above the level the mikal. Signer Name: Stacy Rodrigez MD Signed: 07/28/2020 1:58 AM Workstation Name: [id number]
[2020-07-28 04:36] LABS: Hematocrit 35.6 % (35.5-45.6); Hemoglobin 11.2 gm/dl (11.8-15.2); Mean Corpuscular HGB Conc 32 % (32-34); Mean Corpuscular Volume 109 fl (84-94); Platelet Count 109 K/mm3 (140-440); Red Blood Count 3.25 M/mm3 (3.65-5.03); Red Cell Distribution Width 15.6 % (13.2-15.2)
[2020-07-28 04:55] LABS: Albumin 1.4 g/dL (3.9-5); Calcium 6.6 mg/dL (8.4-10.2)
[2020-07-28] MEDS ORDERED: fentaNYL DRIP Premix 2,000 MCG/100 ML BAG IV SCH (05:00)
[2020-07-28] MEDS: PHENYLEPHRINE 100 MG in SODIUM CHLORIDE 0.9% 90 ML IV SCH ×3 (05:22→14:34)
[2020-07-28] MEDS ORDERED: SODIUM BICARB 8.4% 50 MEQ/50 ML SYRINGE IV ONE ×6 (05:34→15:00)
[2020-07-28] MEDS ORDERED: SODIUM CHLORIDE 0.9% 1000 ML 1,000 ML ONE ×2 (05:36→13:50)
[2020-07-28] MEDS ORDERED: SODIUM CHLORIDE 0.9% 1000 ML 1,000 ML IV ONE (05:39)
[2020-07-28] MEDS: SODIUM BICARBONATE 150 MEQ in DEXTROSE 5% IN WATER 1,000 ML IV SCH ×2 (06:20→08:16)
[2020-07-28] MEDS: INSULIN LISPRO 100 UNIT/ML SUB-Q SCH ×2 (07:36→12:59)
--- NOTE | 2020-07-28 08:22 | Ultrasound Report ---
ULTRASOUND RENAL INDICATION / CLINICAL INFORMATION: Acute kidney failure. COMPARISON: CT abdomen pelvis 07/26/2020 FINDINGS: RIGHT KIDNEY: Length = 9.2 cm. [normal > 9 cm] - Parenchymal Thickness = 2.1 cm. [normal > 1.5 cm] - Echogenicity: Normal. - Hydronephrosis: None. - Cyst or mass: No significant abnormality. - Stones: None seen. LEFT KIDNEY: Length = 9.7 cm. [normal > 9 cm] - Parenchymal Thickness = 1.5 cm. [normal > 1.5 cm] - Echogenicity: Normal. - Hydronephrosis: None. - Cyst or mass: No significant abnormality. - Stones: None seen. URINARY BLADDER: The bladder is decompressed with a Thomas catheter and poorly evaluated. FREE FLUID: None. ADDITIONAL FINDINGS: None. IMPRESSION: No significant abnormality. Signer Name: Kevin Hampton Jr, MD Signed: 07/28/2020 8:17 AM Workstation Name: [id number]
[2020-07-28] MEDS: LACTATED RINGERS 1,000 ML IV SCH ×2 (09:21→10:19)
[2020-07-28] MEDS ORDERED: SENNOSIDES/DOCUSATE SODIUM 8.6/50 MG TAB FEEDTUBE SCH (10:00)
[2020-07-28] MEDS ORDERED: FAMOTIDINE 20 MG/2 ML INJ IV SCH (10:00)
[2020-07-28] MEDS: HEPARIN 5,000 UNIT/1 ML VIAL SUB-Q SCH (10:19)
[2020-07-28] MEDS: ASPIRIN 325 MG TAB PO SCH (10:20)
[2020-07-28] MEDS ORDERED: DOPamine/D5W 800 MG/250 ML 800 MG/250 ML BAG IV SCH (11:00)
[2020-07-28] MEDS ORDERED: CALCIUM GLUCONATE 1,000 MG in SODIUM CHLORIDE 0.9% 100 ML IV ONE (11:00)
[2020-07-28] MEDS ORDERED: SODIUM BICARBONATE 2 MEQ/2 ML SYRINGE IV ONE (11:00)
--- NOTE | 2020-07-28 11:33 | Gastroenterology Progress Note ---
Assessment and Plan - Patient Problems (1) Elevated liver enzymes Current Visit: Yes Status: Acute Plan to address problem: - The patient likely has shock liver/acute ischemia, confounded by rhabdomyolysis (and other underlying illnesses). - Agree with aggressive hydration, and BP support. - Hepatitis serologies negative, and no obvious mass or cirrhosis on imaging. SARS pending. - Will monitor conservatively for now. Subjective Date of service: 07/28/20 Principal diagnosis: Abnormal LFTs Interval history: The patient has been intubated and remains critically ill. Hypotensive and unstable vitals overnight. Objective - Constitutional Vitals: Temp Pulse Resp BP Pulse Ox 97.3 F L 93 H 30 H 77/52 92 07/28/20 08:00 07/28/20 10:30 07/28/20 10:30 07/28/20 10:30 07/27/20 18:00 General appearance: other (Intubated) - Respiratory Respiratory effort: normal Respiratory: bilateral: CTA (Vent) - Cardiovascular Rhythm: regular Heart Sounds: Present: S1 & S2 - Gastrointestinal General gastrointestinal: Present: soft, non-tender, non-distended - Labs CBC & Chem 7: 07/28/20 04:00 07/28/20 04:00 Labs: Laboratory Results - last 24 hr 07/27/20 07/27/20 07/27/20 11:16 11:54 12:50 WBC RBC Hgb Hct MCV MCH MCHC RDW Plt Count Add Manual Diff Total Counted Seg Neutrophils % Seg Neuts % (Manual) Band Neutrophils % Lymphocytes % (Manual) Metamyelocytes % Nucleated RBC % Seg Neutrophils # Man Band Neutrophils # Lymphocytes # (Manual) Abs React Lymphs (Man) Monocytes # (Manual) Eosinophils # (Manual) Basophils # (Manual) Metamyelocytes # Myelocytes # Promyelocytes # Blast Cells # WBC Morphology Hypersegmented Neuts Hyposegmented Neuts Hypogranular Neuts Smudge Cells Toxic Granulation Toxic Vacuolation Dohle Bodies Pelger-Huet Anomaly Patrica Rods Platelet Estimate Clumped Platelets Plt Clumps, EDTA Large Platelets Giant Platelets Platelet Satelliting Plt Morphology Comment RBC Morphology Dimorphic RBCs Polychromasia Hypochromasia Poikilocytosis Anisocytosis Microcytosis Macrocytosis Spherocytes Pappenheimer Bodies Sickle Cells Target Cells Tear Drop Cells Ovalocytes Helmet Cells [place] Bodies Cooks Rings Reggie Cells Bite Cells Crenated Cell Elliptocytes Acanthocytes (Spur) Rouleaux Hemoglobin C Crystals Schistocytes Malaria parasites Curtis Bodies Hem Pathologist Commnt ABG pH POC ABG pCO2 POC ABG pO2 POC ABG HCO3 ABG O2 Saturation POC ABG Base Excess ABG Hemoglobin ABG Oxyhemoglobin ABG Methemoglobin ABG Sodium ABG Potassium ABG Chloride ABG Glucose Carboxyhemoglobin FiO2 % Sodium Potassium Chloride Carbon Dioxide Anion Gap BUN Creatinine Estimated GFR BUN/Creatinine Ratio Glucose POC Glucose 29 L 71 33 L Hemoglobin A1c Lactic Acid Calcium Phosphorus Total Bilirubin Direct Bilirubin Indirect Bilirubin AST ALT Alkaline Phosphatase Total Creatine Kinase Troponin T Total Protein Albumin Albumin/Globulin Ratio Arterial Blood Glucose Arterial Blood Ionized Calcium Urine Creatinine Protein/Creatinin Ratio Urine Total Protein Hep Bs Antigen Hepatitis C Antibody 07/27/20 07/27/20 07/27/20 13:12 13:26 13:33 WBC RBC Hgb Hct MCV MCH MCHC RDW Plt Count Add Manual Diff Total Counted Seg Neutrophils % Seg Neuts % (Manual) Band Neutrophils % Lymphocytes % (Manual) Metamyelocytes % Nucleated RBC % Seg Neutrophils # Man Band Neutrophils # Lymphocytes # (Manual) Abs React Lymphs (Man) Monocytes # (Manual) Eosinophils # (Manual) Basophils # (Manual) Metamyelocytes # Myelocytes # Promyelocytes # Blast Cells # WBC Morphology Hypersegmented Neuts Hyposegmented Neuts Hypogranular Neuts Smudge Cells Toxic Granulation Toxic Vacuolation Dohle Bodies Pelger-Huet Anomaly Patrica Rods Platelet Estimate Clumped Platelets Plt Clumps, EDTA Large Platelets Giant Platelets Platelet Satelliting Plt Morphology Comment RBC Morphology Dimorphic RBCs Polychromasia Hypochromasia Poikilocytosis Anisocytosis Microcytosis Macrocytosis Spherocytes Pappenheimer Bodies Sickle Cells Target Cells Tear Drop Cells Ovalocytes Helmet Cells [place] Bodies Cooks Rings [place] Cells Bite Cells Crenated Cell Elliptocytes Acanthocytes (Spur) Rouleaux Hemoglobin C Crystals Schistocytes Malaria parasites Curtis Bodies Hem Pathologist Commnt ABG pH 7.372 POC ABG pCO2 24.4 L POC ABG pO2 446.8 H POC ABG HCO3 13.9 ABG O2 Saturation 99.7 POC ABG Base Excess -9.5 ABG Hemoglobin 13.3 ABG Oxyhemoglobin 99.0 H ABG Methemoglobin 0.4 ABG Sodium 128.9 L ABG Potassium 3.8 ABG Chloride 99.0 ABG Glucose 552 H Carboxyhemoglobin 0.3 L FiO2 % 100.0 Sodium Potassium Chloride Carbon Dioxide Anion Gap BUN Creatinine Estimated GFR BUN/Creatinine Ratio Glucose POC Glucose 43 L 405 H Hemoglobin A1c Lactic Acid Calcium Phosphorus Total Bilirubin Direct Bilirubin Indirect Bilirubin AST ALT Alkaline Phosphatase Total Creatine Kinase Troponin T Total Protein Albumin Albumin/Globulin Ratio Arterial Blood Glucose 552 H Arterial Blood Ionized Calcium 4.1 L Urine Creatinine Protein/Creatinin Ratio Urine Total Protein Hep Bs Antigen Hepatitis C Antibody 07/27/20 07/27/20 07/27/20 16:32 17:21 19:24 WBC RBC Hgb Hct MCV MCH MCHC RDW Plt Count Add Manual Diff Total Counted Seg Neutrophils % Seg Neuts % (Manual) Band Neutrophils % Lymphocytes % (Manual) Metamyelocytes % Nucleated RBC % Seg Neutrophils # Man Band Neutrophils # Lymphocytes # (Manual) Abs React Lymphs (Man) Monocytes # (Manual) Eosinophils # (Manual) Basophils # (Manual) Metamyelocytes # Myelocytes # Promyelocytes # Blast Cells # WBC Morphology Hypersegmented Neuts Hyposegmented Neuts Hypogranular Neuts Smudge Cells Toxic Granulation Toxic Vacuolation Dohle Bodies Pelger-Huet Anomaly Patrica Rods Platelet Estimate Clumped Platelets Plt Clumps, EDTA Large Platelets Giant Platelets Platelet Satelliting Plt Morphology Comment RBC Morphology Dimorphic RBCs Polychromasia Hypochromasia Poikilocytosis Anisocytosis Microcytosis Macrocytosis Spherocytes Pappenheimer Bodies Sickle Cells Target Cells Tear Drop Cells Ovalocytes Helmet Cells [place] Bodies Cooks Rings Reggie Cells Bite Cells Crenated Cell Elliptocytes Acanthocytes (Spur) Rouleaux Hemoglobin C Crystals Schistocytes Malaria parasites Curtis Bodies Hem Pathologist Commnt ABG pH POC ABG pCO2 POC ABG pO2 POC ABG HCO3 ABG O2 Saturation POC ABG Base Excess ABG Hemoglobin ABG Oxyhemoglobin ABG Methemoglobin ABG Sodium ABG Potassium ABG Chloride ABG Glucose Carboxyhemoglobin FiO2 % Sodium Potassium Chloride Carbon Dioxide Anion Gap BUN Creatinine Estimated GFR BUN/Creatinine Ratio Glucose POC Glucose 132 H Hemoglobin A1c Lactic Acid 9.80 H* Calcium Phosphorus Total Bilirubin Direct Bilirubin Indirect Bilirubin AST ALT Alkaline Phosphatase Total Creatine Kinase Troponin T Total Protein Albumin Albumin/Globulin Ratio Arterial Blood Glucose Arterial Blood Ionized Calcium Urine Creatinine 49.3 H Protein/Creatinin Ratio 1.20 Urine Total Protein 59 H Hep Bs Antigen Hepatitis C Antibody 07/27/20 07/27/20 07/27/20 19:24 19:24 19:24 WBC RBC Hgb Hct MCV MCH MCHC RDW Plt Count Add Manual Diff Total Counted Seg Neutrophils % Seg Neuts % (Manual) Band Neutrophils % Lymphocytes % (Manual) Metamyelocytes % Nucleated RBC % Seg Neutrophils # Man Band Neutrophils # Lymphocytes # (Manual) Abs React Lymphs (Man) Monocytes # (Manual) Eosinophils # (Manual) Basophils # (Manual) Metamyelocytes # Myelocytes # Promyelocytes # Blast Cells # WBC Morphology Hypersegmented Neuts Hyposegmented Neuts Hypogranular Neuts Smudge Cells Toxic Granulation Toxic Vacuolation Dohle Bodies Pelger-Huet Anomaly Patrica Rods Platelet Estimate Clumped Platelets Plt Clumps, EDTA Large Platelets Giant Platelets Platelet Satelliting Plt Morphology Comment RBC Morphology Dimorphic RBCs Polychromasia Hypochromasia Poikilocytosis Anisocytosis Microcytosis Macrocytosis Spherocytes Pappenheimer Bodies Sickle Cells Target Cells Tear Drop Cells Ovalocytes Helmet Cells [place] Bodies Cooks Rings [place] Cells Bite Cells Crenated Cell Elliptocytes Acanthocytes (Spur) Rouleaux Hemoglobin C Crystals Schistocytes Malaria parasites Curtis Bodies Hem Pathologist Commnt ABG pH POC ABG pCO2 POC ABG pO2 POC ABG HCO3 ABG O2 Saturation POC ABG Base Excess ABG Hemoglobin ABG Oxyhemoglobin ABG Methemoglobin ABG Sodium ABG Potassium ABG Chloride ABG Glucose Carboxyhemoglobin FiO2 % Sodium Potassium Chloride Carbon Dioxide Anion Gap BUN Creatinine Estimated GFR BUN/Creatinine Ratio Glucose POC Glucose Hemoglobin A1c 5.4 Lactic Acid Calcium Phosphorus 4.80 H Total Bilirubin Direct Bilirubin Indirect Bilirubin AST ALT Alkaline Phosphatase Total Creatine Kinase 7030 H Troponin T Total Protein Albumin Albumin/Globulin Ratio Arterial Blood Glucose Arterial Blood Ionized Calcium Urine Creatinine Protein/Creatinin Ratio Urine Total Protein Hep Bs Antigen Hepatitis C Antibody Non-reactive 07/27/20 07/27/20 07/27/20 19:24 21:22 21:24 WBC RBC Hgb Hct MCV MCH MCHC RDW Plt Count Add Manual Diff Total Counted Seg Neutrophils % Seg Neuts % (Manual) Band Neutrophils % Lymphocytes % (Manual) Metamyelocytes % Nucleated RBC % Seg Neutrophils # Man Band Neutrophils # Lymphocytes # (Manual) Abs React Lymphs (Man) Monocytes # (Manual) Eosinophils # (Manual) Basophils # (Manual) Metamyelocytes # Myelocytes # Promyelocytes # Blast Cells # WBC Morphology Hypersegmented Neuts Hyposegmented Neuts Hypogranular Neuts Smudge Cells Toxic Granulation Toxic Vacuolation Dohle Bodies Pelger-Huet Anomaly Patrica Rods Platelet Estimate Clumped Platelets Plt Clumps, EDTA Large Platelets Giant Platelets Platelet Satelliting Plt Morphology Comment RBC Morphology Dimorphic RBCs Polychromasia Hypochromasia Poikilocytosis Anisocytosis Microcytosis Macrocytosis Spherocytes Pappenheimer Bodies Sickle Cells Target Cells Tear Drop Cells Ovalocytes Helmet Cells [place] Bodies Cooks Rings [place] Cells Bite Cells Crenated Cell Elliptocytes Acanthocytes (Spur) Rouleaux Hemoglobin C Crystals Schistocytes Malaria parasites Curtis Bodies Hem Pathologist Commnt ABG pH POC ABG pCO2 POC ABG pO2 POC ABG HCO3 ABG O2 Saturation POC ABG Base Excess ABG Hemoglobin ABG Oxyhemoglobin ABG Methemoglobin ABG Sodium ABG Potassium ABG Chloride ABG Glucose Carboxyhemoglobin FiO2 % Sodium Potassium Chloride Carbon Dioxide Anion Gap BUN Creatinine Estimated GFR BUN/Creatinine Ratio Glucose POC Glucose < 10 L < 10 L Hemoglobin A1c Lactic Acid Calcium Phosphorus Total Bilirubin Direct Bilirubin Indirect Bilirubin AST ALT Alkaline Phosphatase Total Creatine Kinase Troponin T Total Protein Albumin Albumin/Globulin Ratio Arterial Blood Glucose Arterial Blood Ionized Calcium Urine Creatinine Protein/Creatinin Ratio Urine Total Protein Hep Bs Antigen Non-reactive Hepatitis C Antibody 07/27/20 07/27/20 07/27/20 21:28 21:30 22:15 WBC RBC Hgb Hct MCV MCH MCHC RDW Plt Count Add Manual Diff Total Counted Seg Neutrophils % Seg Neuts % (Manual) Band Neutrophils % Lymphocytes % (Manual) Metamyelocytes % Nucleated RBC % Seg Neutrophils # Man Band Neutrophils # Lymphocytes # (Manual) Abs React Lymphs (Man) Monocytes # (Manual) Eosinophils # (Manual) Basophils # (Manual) Metamyelocytes # Myelocytes # Promyelocytes # Blast Cells # WBC Morphology Hypersegmented Neuts Hyposegmented Neuts Hypogranular Neuts Smudge Cells Toxic Granulation Toxic Vacuolation Dohle Bodies Pelger-Huet Anomaly Patrica Rods Platelet Estimate Clumped Platelets Plt Clumps, EDTA Large Platelets Giant Platelets Platelet Satelliting Plt Morphology Comment RBC Morphology Dimorphic RBCs Polychromasia Hypochromasia Poikilocytosis Anisocytosis Microcytosis Macrocytosis Spherocytes Pappenheimer Bodies Sickle Cells Target Cells Tear Drop Cells Ovalocytes Helmet Cells [place] Bodies Cooks Rings Reggie Cells Bite Cells Crenated Cell Elliptocytes Acanthocytes (Spur) Rouleaux Hemoglobin C Crystals Schistocytes Malaria parasites Curtis Bodies Hem Pathologist Commnt ABG pH 6.917 L POC ABG pCO2 53.6 H POC ABG pO2 48.0 L POC ABG HCO3 10.7 ABG O2 Saturation 54.9 POC ABG Base Excess -21.9 ABG Hemoglobin 12.8 ABG Oxyhemoglobin 54.4 L ABG Methemoglobin 0.1 ABG Sodium 133.3 L ABG Potassium 4.5 ABG Chloride 100.0 ABG Glucose 139 H Carboxyhemoglobin 0.8 FiO2 % 50.0 Sodium 137 Potassium 4.7 Chloride 98.7 Carbon Dioxide 11 L D Anion Gap 32 BUN 63 H Creatinine 4.9 H Estimated GFR 14 BUN/Creatinine Ratio 13 Glucose 72 L POC Glucose 70 Hemoglobin A1c Lactic Acid Calcium 7.1 L Phosphorus Total Bilirubin 1.10 Direct Bilirubin Indirect Bilirubin AST 2750 H ALT 1351 H Alkaline Phosphatase 81 Total Creatine Kinase Troponin T Total Protein 4.3 L D Albumin 1.5 L Albumin/Globulin Ratio 0.5 Arterial Blood Glucose 139 H Arterial Blood Ionized Calcium 4.1 L Urine Creatinine Protein/Creatinin Ratio Urine Total Protein Hep Bs Antigen Hepatitis C Antibody 07/27/20 07/27/20 07/27/20 Unknown Unknown Unknown WBC RBC Hgb Hct MCV MCH MCHC RDW Plt Count Add Manual Diff Total Counted Seg Neutrophils % Seg Neuts % (Manual) Band Neutrophils % Lymphocytes % (Manual) Metamyelocytes % Nucleated RBC % Seg Neutrophils # Man Band Neutrophils # Lymphocytes # (Manual) Abs React Lymphs (Man) Monocytes # (Manual) Eosinophils # (Manual) Basophils # (Manual) Metamyelocytes # Myelocytes # Promyelocytes # Blast Cells # WBC Morphology Hypersegmented Neuts Hyposegmented Neuts Hypogranular Neuts Smudge Cells Toxic Granulation Toxic Vacuolation Dohle Bodies Pelger-Huet Anomaly Patrica Rods Platelet Estimate Clumped Platelets Plt Clumps, EDTA Large Platelets Giant Platelets Platelet Satelliting Plt Morphology Comment RBC Morphology Dimorphic RBCs Polychromasia Hypochromasia Poikilocytosis Anisocytosis Microcytosis Macrocytosis Spherocytes Pappenheimer Bodies Sickle Cells Target Cells Tear Drop Cells Ovalocytes Helmet Cells [place] Bodies Cooks Rings [place] Cells Bite Cells Crenated Cell Elliptocytes Acanthocytes (Spur) Rouleaux Hemoglobin C Crystals Schistocytes Malaria parasites Curtis Bodies Hem Pathologist Commnt ABG pH POC ABG pCO2 POC ABG pO2 POC ABG HCO3 ABG O2 Saturation POC ABG Base Excess ABG Hemoglobin ABG Oxyhemoglobin ABG Methemoglobin ABG Sodium ABG Potassium ABG Chloride ABG Glucose Carboxyhemoglobin FiO2 % Sodium 134 L D Potassium 4.3 D Chloride 95.9 L Carbon Dioxide 18 L D Anion Gap 24 BUN 86 H Creatinine 5.4 H Estimated GFR 12 BUN/Creatinine Ratio 16 Glucose 143 H POC Glucose Hemoglobin A1c Lactic Acid Calcium 8.3 L Phosphorus Total Bilirubin Direct Bilirubin Indirect Bilirubin AST ALT Alkaline Phosphatase Total Creatine Kinase 7505 H Troponin T 0.159 H* D Total Protein Albumin Albumin/Globulin Ratio Arterial Blood Glucose Arterial Blood Ionized Calcium Urine Creatinine Protein/Creatinin Ratio Urine Total Protein Hep Bs Antigen Hepatitis C Antibody 07/27/20 07/27/20 07/27/20 Unknown Unknown Unknown WBC 17.2 H RBC 4.26 Hgb 14.6 Hct 43.7 D MCV 103 H MCH 34 H MCHC 34 RDW 14.8 Plt Count 229 Add Manual Diff Complete Total Counted 100 Seg Neutrophils % Golf Coach Seg Neuts % (Manual) 56.0 Band Neutrophils % 36.0 Lymphocytes % (Manual) 7.0 L Metamyelocytes % 1.0 Nucleated RBC % Not Reportable Seg Neutrophils # Man 9.6 H Band Neutrophils # 6.2 Lymphocytes # (Manual) 1.2 Abs React Lymphs (Man) 0.0 Monocytes # (Manual) 0.0 Eosinophils # (Manual) 0.0 Basophils # (Manual) 0.0 Metamyelocytes # 0.2 Myelocytes # 0.0 Promyelocytes # 0.0 Blast Cells # 0.0 WBC Morphology Not Reportable Hypersegmented Neuts Not Reportable Hyposegmented Neuts Not Reportable Hypogranular Neuts Not Reportable Smudge Cells Not Reportable Toxic Granulation Not Reportable Toxic Vacuolation Not Reportable Dohle Bodies Not Reportable Pelger-Huet Anomaly Not Reportable Patrica Rods Not Reportable Platelet Estimate Consistent w auto Clumped Platelets Rare Plt Clumps, EDTA Not Reportable Large Platelets Not Reportable Giant Platelets Not Reportable Platelet Satelliting Not Reportable Plt Morphology Comment Not Reportable RBC Morphology Not Reportable Dimorphic RBCs Not Reportable Polychromasia Not Reportable Hypochromasia Not Reportable Poikilocytosis Not Reportable Anisocytosis Few Microcytosis Not Reportable Macrocytosis 1+ Spherocytes Not Reportable Pappenheimer Bodies Not Reportable Sickle Cells Not Reportable Target Cells Not Reportable Tear Drop Cells Not Reportable Ovalocytes Not Reportable Helmet Cells Not Reportable [place] Bodies Not Reportable Cooks Rings Not Reportable [place] Cells Not Reportable Bite Cells Not Reportable Crenated Cell Not Reportable Elliptocytes Not Reportable Acanthocytes (Spur) Not Reportable Rouleaux Not Reportable Hemoglobin C Crystals Not Reportable Schistocytes Not Reportable Malaria parasites Not Reportable Curtis Bodies Not Reportable Hem Pathologist Commnt No ABG pH POC ABG pCO2 POC ABG pO2 POC ABG HCO3 ABG O2 Saturation POC ABG Base Excess ABG Hemoglobin ABG Oxyhemoglobin ABG Methemoglobin ABG Sodium ABG Potassium ABG Chloride ABG Glucose Carboxyhemoglobin FiO2 % Sodium Potassium Chloride Carbon Dioxide Anion Gap BUN Creatinine Estimated GFR BUN/Creatinine Ratio Glucose POC Glucose Hemoglobin A1c Lactic Acid 3.40 H* Calcium Phosphorus Total Bilirubin 1.20 Direct Bilirubin 0.7 H Indirect Bilirubin 0.5 AST 65 H ALT 1671 H Alkaline Phosphatase 86 Total Creatine Kinase Troponin T Total Protein 6.0 L Albumin 2.3 L Albumin/Globulin Ratio 0.6 Arterial Blood Glucose Arterial Blood Ionized Calcium Urine Creatinine Protein/Creatinin Ratio Urine Total Protein Hep Bs Antigen Hepatitis C Antibody 07/28/20 07/28/20 07/28/20 01:37 02:09 03:10 WBC RBC Hgb Hct MCV MCH MCHC RDW Plt Count Add Manual Diff Total Counted Seg Neutrophils % Seg Neuts % (Manual) Band Neutrophils % Lymphocytes % (Manual) Metamyelocytes % Nucleated RBC % Seg Neutrophils # Man Band Neutrophils # Lymphocytes # (Manual) Abs React Lymphs (Man) Monocytes # (Manual) Eosinophils # (Manual) Basophils # (Manual) Metamyelocytes # Myelocytes # Promyelocytes # Blast Cells # WBC Morphology Hypersegmented Neuts Hyposegmented Neuts Hypogranular Neuts Smudge Cells Toxic Granulation Toxic Vacuolation Dohle Bodies Pelger-Huet Anomaly Patrica Rods Platelet Estimate Clumped Platelets Plt Clumps, EDTA Large Platelets Giant Platelets Platelet Satelliting Plt Morphology Comment RBC Morphology Dimorphic RBCs Polychromasia Hypochromasia Poikilocytosis Anisocytosis Microcytosis Macrocytosis Spherocytes Pappenheimer Bodies Sickle Cells Target Cells Tear Drop Cells Ovalocytes Helmet Cells [place] Bodies Cooks Rings [place] Cells Bite Cells Crenated Cell Elliptocytes Acanthocytes (Spur) Rouleaux Hemoglobin C Crystals Schistocytes Malaria parasites Curtis Bodies Hem Pathologist Commnt ABG pH 7.164 L POC ABG pCO2 19.9 L POC ABG pO2 295.6 H POC ABG HCO3 7.0 ABG O2 Saturation 99.9 POC ABG Base Excess -19.7 ABG Hemoglobin 11.8 L ABG Oxyhemoglobin 99.2 H ABG Methemoglobin 0.1 ABG Sodium 133.4 L ABG Potassium 4.8 H ABG Chloride 101.0 ABG Glucose 521 H Carboxyhemoglobin 0.6 FiO2 % 100.0 Sodium Potassium Chloride Carbon Dioxide Anion Gap BUN Creatinine Estimated GFR BUN/Creatinine Ratio Glucose POC Glucose 19 L 37 L Hemoglobin A1c Lactic Acid Calcium Phosphorus Total Bilirubin Direct Bilirubin Indirect Bilirubin AST ALT Alkaline Phosphatase Total Creatine Kinase Troponin T Total Protein Albumin Albumin/Globulin Ratio Arterial Blood Glucose 521 H Arterial Blood Ionized Calcium 3.6 L Urine Creatinine Protein/Creatinin Ratio Urine Total Protein Hep Bs Antigen Hepatitis C Antibody 07/28/20 07/28/20 07/28/20 03:25 04:00 04:00 WBC 16.1 H RBC 3.25 L Hgb 11.2 L D Hct 35.6 D MCV 109 H MCH 34 H MCHC 32 RDW 15.6 H Plt Count 109 L Add Manual Diff Total Counted Seg Neutrophils % Seg Neuts % (Manual) Band Neutrophils % Lymphocytes % (Manual) Metamyelocytes % Nucleated RBC % Seg Neutrophils # Man Band Neutrophils # Lymphocytes # (Manual) Abs React Lymphs (Man) Monocytes # (Manual) Eosinophils # (Manual) Basophils # (Manual) Metamyelocytes # Myelocytes # Promyelocytes # Blast Cells # WBC Morphology Hypersegmented Neuts Hyposegmented Neuts Hypogranular Neuts Smudge Cells Toxic Granulation Toxic Vacuolation Dohle Bodies Pelger-Huet Anomaly Patrica Rods Platelet Estimate Clumped Platelets Plt Clumps, EDTA Large Platelets Giant Platelets Platelet Satelliting Plt Morphology Comment RBC Morphology Dimorphic RBCs Polychromasia Hypochromasia Poikilocytosis Anisocytosis Microcytosis Macrocytosis Spherocytes Pappenheimer Bodies Sickle Cells Target Cells Tear Drop Cells Ovalocytes Helmet Cells [place] Bodies Cooks Rings [place] Cells Bite Cells Crenated Cell Elliptocytes Acanthocytes (Spur) Rouleaux Hemoglobin C Crystals Schistocytes Malaria parasites Curtis Bodies Hem Pathologist Commnt ABG pH POC ABG pCO2 POC ABG pO2 POC ABG HCO3 ABG O2 Saturation POC ABG Base Excess ABG Hemoglobin ABG Oxyhemoglobin ABG Methemoglobin ABG Sodium ABG Potassium ABG Chloride ABG Glucose Carboxyhemoglobin FiO2 % Sodium Potassium Chloride Carbon Dioxide Anion Gap BUN Creatinine Estimated GFR BUN/Creatinine Ratio Glucose POC Glucose 21 L Hemoglobin A1c Lactic Acid 15.60 H* Calcium Phosphorus Total Bilirubin Direct Bilirubin Indirect Bilirubin AST ALT Alkaline Phosphatase Total Creatine Kinase Troponin T Total Protein Albumin Albumin/Globulin Ratio Arterial Blood Glucose Arterial Blood Ionized Calcium Urine Creatinine Protein/Creatinin Ratio Urine Total Protein Hep Bs Antigen Hepatitis C Antibody 07/28/20 07/28/20 07/28/20 04:00 04:00 04:12 WBC RBC Hgb Hct MCV MCH MCHC RDW Plt Count Add Manual Diff Total Counted Seg Neutrophils % Seg Neuts % (Manual) Band Neutrophils % Lymphocytes % (Manual) Metamyelocytes % Nucleated RBC % Seg Neutrophils # Man Band Neutrophils # Lymphocytes # (Manual) Abs React Lymphs (Man) Monocytes # (Manual) Eosinophils # (Manual) Basophils # (Manual) Metamyelocytes # Myelocytes # Promyelocytes # Blast Cells # WBC Morphology Hypersegmented Neuts Hyposegmented Neuts Hypogranular Neuts Smudge Cells Toxic Granulation Toxic Vacuolation Dohle Bodies Pelger-Huet Anomaly Patrica Rods Platelet Estimate Clumped Platelets Plt Clumps, EDTA Large Platelets Giant Platelets Platelet Satelliting Plt Morphology Comment RBC Morphology Dimorphic RBCs Polychromasia Hypochromasia Poikilocytosis Anisocytosis Microcytosis Macrocytosis Spherocytes Pappenheimer Bodies Sickle Cells Target Cells Tear Drop Cells Ovalocytes Helmet Cells [place] Bodies Cooks Rings Reggie Cells Bite Cells Crenated Cell Elliptocytes Acanthocytes (Spur) Rouleaux Hemoglobin C Crystals Schistocytes Malaria parasites Curtis Bodies Hem Pathologist Commnt ABG pH POC ABG pCO2 POC ABG pO2 POC ABG HCO3 ABG O2 Saturation POC ABG Base Excess ABG Hemoglobin ABG Oxyhemoglobin ABG Methemoglobin ABG Sodium ABG Potassium ABG Chloride ABG Glucose Carboxyhemoglobin FiO2 % Sodium 137 Potassium 5.0 Chloride 95.8 L Carbon Dioxide 9 L* Anion Gap 37 BUN 64 H Creatinine 5.1 H Estimated GFR 13 BUN/Creatinine Ratio 13 Glucose 372 H POC Glucose 25 L 342 H Hemoglobin A1c Lactic Acid Calcium 6.6 L Phosphorus Total Bilirubin 1.30 H Direct Bilirubin Indirect Bilirubin AST 3927 H ALT 1752 H Alkaline Phosphatase 102 Total Creatine Kinase Troponin T Total Protein 4.0 L Albumin 1.4 L Albumin/Globulin Ratio 0.5 Arterial Blood Glucose Arterial Blood Ionized Calcium Urine Creatinine Protein/Creatinin Ratio Urine Total Protein Hep Bs Antigen Hepatitis C Antibody 07/28/20 07:17 WBC RBC Hgb Hct MCV MCH MCHC RDW Plt Count Add Manual Diff Total Counted Seg Neutrophils % Seg Neuts % (Manual) Band Neutrophils % Lymphocytes % (Manual) Metamyelocytes % Nucleated RBC % Seg Neutrophils # Man Band Neutrophils # Lymphocytes # (Manual) Abs React Lymphs (Man) Monocytes # (Manual) Eosinophils # (Manual) Basophils # (Manual) Metamyelocytes # Myelocytes # Promyelocytes # Blast Cells # WBC Morphology Hypersegmented Neuts Hyposegmented Neuts Hypogranular Neuts Smudge Cells Toxic Granulation Toxic Vacuolation Dohle Bodies Pelger-Huet Anomaly Patrica Rods Platelet Estimate Clumped Platelets Plt Clumps, EDTA Large Platelets Giant Platelets Platelet Satelliting Plt Morphology Comment RBC Morphology Dimorphic RBCs Polychromasia Hypochromasia Poikilocytosis Anisocytosis Microcytosis Macrocytosis Spherocytes Pappenheimer Bodies Sickle Cells Target Cells Tear Drop Cells Ovalocytes Helmet Cells [place] Bodies Cooks Rings Rgegie Cells Bite Cells Crenated Cell Elliptocytes Acanthocytes (Spur) Rouleaux Hemoglobin C Crystals Schistocytes Malaria parasites Curtis Bodies Hem Pathologist Commnt ABG pH POC ABG pCO2 POC ABG pO2 POC ABG HCO3 ABG O2 Saturation POC ABG Base Excess ABG Hemoglobin ABG Oxyhemoglobin ABG Methemoglobin ABG Sodium ABG Potassium ABG Chloride ABG Glucose Carboxyhemoglobin FiO2 % Sodium Potassium Chloride Carbon Dioxide Anion Gap BUN Creatinine Estimated GFR BUN/Creatinine Ratio Glucose POC Glucose 204 H Hemoglobin A1c Lactic Acid Calcium Phosphorus Total Bilirubin Direct Bilirubin Indirect Bilirubin AST ALT Alkaline Phosphatase Total Creatine Kinase Troponin T Total Protein Albumin Albumin/Globulin Ratio Arterial Blood Glucose Arterial Blood Ionized Calcium Urine Creatinine Protein/Creatinin Ratio Urine Total Protein Hep Bs Antigen Hepatitis C Antibody
--- NOTE | 2020-07-28 11:34 | Progress Note ---
Assessment and Plan - Patient Problems (1) Elevated troponin Current Visit: Yes Status: Acute Plan to address problem: Nonspecific elevated troponin in this clinical setting of altered mental status, possible CVA and acute renal failure. Will order an echocardiogram for left ventricular function assessment. Otherwise, conservative cardiac management Subjective Date of service: 07/28/20 Interval history: Patient is intubated, on mechanical ventilation, and on 2 pressors for support. Objective Vital Signs Temp Pulse Pulse Resp BP BP Pulse Ox 07/28/20 10:30 93 H 30 H 07/28/20 10:00 95 H 30 H 07/28/20 09:30 103 H 30 H 07/28/20 09:12 106 H 30 H 07/28/20 09:00 108 H 30 H 07/28/20 08:30 113 H 30 H 07/28/20 08:00 97.3 F L 114 H 114 H 30 H 07/28/20 07:30 115 H 14 07/28/20 07:00 110 H 30 H 07/28/20 06:30 108 H 26 H 07/28/20 06:01 109 H 07/28/20 06:00 118 H 30 H 07/28/20 05:41 59/19 07/28/20 05:30 118 H 30 H 84/50 51/33 07/28/20 05:15 84/50 07/28/20 05:00 112 H 30 H 110/84 07/28/20 04:30 114 H 30 H 125/102 07/28/20 04:00 97.4 F L 111 H 29 H 124/96 07/28/20 03:53 112 H 30 H 124/96 07/28/20 03:30 105 H 123/98 07/28/20 03:25 141/94 07/28/20 00:55 113 H 07/28/20 00:50 102/66 07/28/20 00:00 97.3 F L 07/27/20 23:33 91 H 28 H 07/27/20 23:30 79/68 07/27/20 22:00 110 H 24 07/27/20 21:15 98.7 F 96 H 22 155/129 07/27/20 20:00 98.7 F 07/27/20 19:15 97.9 F 115 H 30 H 87/40 07/27/20 18:52 69 61/30 07/27/20 18:45 70 54/17 07/27/20 18:30 98 H 125/103 07/27/20 18:00 120 H 32 H 115/74 92 07/27/20 17:55 89 107/80 07/27/20 17:45 97.7 F 97 H 24 106/79 114/64 07/27/20 17:16 110 H 109/53 07/27/20 16:15 108 H 25 H 119/63 07/27/20 16:03 97.9 F 07/27/20 16:00 98.3 F 07/27/20 15:01 101 H 23 126/81 07/27/20 14:51 100 H 23 133/85 07/27/20 14:41 97 H 22 116/67 07/27/20 14:31 98 H 27 H 116/67 07/27/20 14:15 99 H 26 H 107/80 07/27/20 14:01 102 H 26 H 125/75 07/27/20 13:45 103 H 25 H 110/71 07/27/20 13:31 98 H 21 121/77 07/27/20 13:15 97 H 23 130/69 07/27/20 13:01 112 H 27 H 115/95 07/27/20 12:45 107 H 30 H 119/84 07/27/20 12:31 97 H 28 H 119/84 07/27/20 12:15 98 H 26 H 118/70 07/27/20 12:01 95 H 22 119/68 07/27/20 11:45 95 H 26 H 127/73 07/27/20 11:31 101 H 24 139/77 139/77 100 - Physical Examination General: Other (unresponsive on the vent) Cardiac: Positive: Reg Rate and Rhythm - Labs and Meds Cardiac Enzymes 07/27/20 07/27/20 07/28/20 Range/Units 21:30 Unknown 04:00 AST 2750 H 65 H 3927 H (5-40) units/L CBC 07/27/20 07/28/20 Range/Units Unknown 04:00 WBC 17.2 H 16.1 H (4.5-11.0) K/mm3 RBC 4.26 3.25 L (3.65-5.03) M/mm3 Hgb 14.6 11.2 L D (11.8-15.2) gm/dl Hct 43.7 D 35.6 D (35.5-45.6) % Plt Count 229 109 L (140-440) K/mm3 Comprehensive Metabolic Panel 07/27/20 07/27/20 07/27/20 Range/Units 21:30 Unknown Unknown Sodium 137 134 L D (137-145) mmol/L Potassium 4.7 4.3 D (3.6-5.0) mmol/L Chloride 98.7 95.9 L (98-107) mmol/L Carbon Dioxide 11 L D 18 L D (22-30) mmol/L BUN 63 H 86 H (9-20) mg/dL Creatinine 4.9 H 5.4 H (0.8-1.3) mg/dL Glucose 72 L 143 H (75-100) mg/dL Calcium 7.1 L 8.3 L (8.4-10.2) mg/dL Direct Bilirubin 0.7 H (0-0.2) mg/dL Indirect Bilirubin 0.5 mg/dL AST 2750 H 65 H (5-40) units/L ALT 1351 H 1671 H (7-56) units/L Alkaline Phosphatase 81 86 (35-129) units/L Total Protein 4.3 L D 6.0 L (6.3-8.2) g/dL Albumin 1.5 L 2.3 L (3.9-5) g/dL 07/28/20 Range/Units 04:00 Sodium 137 (137-145) mmol/L Potassium 5.0 (3.6-5.0) mmol/L Chloride 95.8 L (98-107) mmol/L Carbon Dioxide 9 L* (22-30) mmol/L BUN 64 H (9-20) mg/dL Creatinine 5.1 H (0.8-1.3) mg/dL Glucose 372 H (75-100) mg/dL Calcium 6.6 L (8.4-10.2) mg/dL Direct Bilirubin (0-0.2) mg/dL Indirect Bilirubin mg/dL AST 3927 H (5-40) units/L ALT 1752 H (7-56) units/L Alkaline Phosphatase 102 (35-129) units/L Total Protein 4.0 L (6.3-8.2) g/dL Albumin 1.4 L (3.9-5) g/dL
[2020-07-28] MEDS ORDERED: CALCIUM CHLORIDE 1,000 MG/10 ML SYRINGE IV ONE ×2 (12:39→14:00)
[2020-07-28] MEDS ORDERED: DEXTROSE 50% IN WATER (25GM) 50 ML SYRINGE IV ONE (12:55)
[2020-07-28] MEDS ORDERED: CALCIUM CHLORIDE 1,000 MG in SODIUM CHLORIDE 0.9% 100 ML IV ONE (12:55)
[2020-07-28] MEDS ORDERED: EPINEPHrine/PF 1 MG/1 ML INJ IV ONE (12:56)
[2020-07-28] MEDS ORDERED: EPINEPHrine 1 MG/10 ML SYRINGE ONE (12:56)
[2020-07-28] MEDS ORDERED: EPINEPHrine 1 MG/1 ML 8 MG in SODIUM CHLORIDE 0.9% 250ML 242 ML IV SCH (13:30)
--- NOTE | 2020-07-28 13:38 | Progress Note ---
Assessment and Plan Cultures: None A/P: 80-year-old man unknown past medical history admitted with altered mental status, found to have possible UTI. #Acute sepsis: Present with low temperatures, leukocytosis, tachycardia. Likely secondary to UTI. #UTI: Urinalysis with greater than 182 WBC. Awaiting urine cultures. #CRISTIAN versus CKD: Unclear baseline. Renally adjust medications. Recs: -Start cefepime renally adjusted. -Follow-up urine, blood cultures Thank you for the consult, we will continue to follow. Indigo Alfaro MD [facility] O: [phone] F: [phone] Subjective Date of service: 07/28/20 Principal diagnosis: Abnormal LFTs Interval history: Low temperatures, white count 16.1. Imaging personally reviewed: Chest x-ray: No evident pneumonia present time. Objective - Exam Narrative Exam: Physical Exam: Constitutional: Awake, disoriented Head, Ears, Nose: Normocephalic, atraumatic. External ears, nose normal Eyes: Conjunctivae/corneas clear. No icterus. No ptosis. Neck: Supple, no meningeal signs Oral: dentition fair, no thrush Cardiovascular: S1, S2 normal. Respiratory: Good air entry, clear to auscultation bilaterally GI: Soft, non-tender; bowel sounds normal. No peritoneal signs. Musculoskeletal: No pedal edema, no cyanosis. Skin: No rash or abscess Hem/Lymphatic: No palpable cervical or supraclavicular nodes. No lymphangitis Psych: No agitation Neurological: Awake, disoriented - Constitutional Vitals: Vital Signs Temp Pulse Resp BP Pulse Ox 97.3 F L 94 H 30 H 77/52 92 07/28/20 08:00 07/28/20 12:27 07/28/20 12:27 07/28/20 10:30 07/27/20 18:00 Temperature -Last 24 Hours Temperature 97.3 F Temperature 97.4 F Temperature 97.3 F Temperature 98.7 F Temperature 98.7 F Temperature 97.9 F Temperature 97.7 F Temperature 97.9 F Temperature 98.3 F - Labs CBC & Chem 7: 07/28/20 04:00 07/28/20 04:00 Labs: Abnormal lab results 07/27/20 07/27/20 07/27/20 Range/Units 11:16 12:50 13:26 WBC (4.5-11.0) K/mm3 RBC (3.65-5.03) M/mm3 Hgb (11.8-15.2) gm/dl MCV (84-94) fl MCH (28-32) pg RDW (13.2-15.2) % Plt Count (140-440) K/mm3 ABG pH (7.320-7.450) POC ABG pCO2 (32.0-48.0) mmHg POC ABG pO2 (83-108) mmHg ABG Hemoglobin (12.0-17.5) ABG Oxyhemoglobin (94-98) ABG Sodium (136.0-145.0) mmol/L ABG Potassium (3.40-4.50) mmol/L ABG Glucose (65-95) mg/dL Chloride (98-107) mmol/L Carbon Dioxide (22-30) mmol/L BUN (9-20) mg/dL Creatinine (0.8-1.3) mg/dL Glucose (75-100) mg/dL POC Glucose 29 L 33 L 43 L (70-105) mg/dL Lactic Acid (0.7-2.0) mmol/L Calcium (8.4-10.2) mg/dL Phosphorus (2.5-4.5) mg/dL Total Bilirubin (0.1-1.2) mg/dL AST (5-40) units/L ALT (7-56) units/L Total Creatine Kinase (55-170) units/L Total Protein (6.3-8.2) g/dL Albumin (3.9-5) g/dL Arterial Blood Glucose (65-95) mg/dL Arterial Blood Ionized Calcium (4.6-5.3) mg/dL Urine Creatinine (0.1-20.0) mg/dL Urine Total Protein (5-11.8) mg/dL 07/27/20 07/27/20 07/27/20 Range/Units 13:33 16:32 17:21 WBC (4.5-11.0) K/mm3 RBC (3.65-5.03) M/mm3 Hgb (11.8-15.2) gm/dl MCV (84-94) fl MCH (28-32) pg RDW (13.2-15.2) % Plt Count (140-440) K/mm3 ABG pH (7.320-7.450) POC ABG pCO2 (32.0-48.0) mmHg POC ABG pO2 (83-108) mmHg ABG Hemoglobin (12.0-17.5) ABG Oxyhemoglobin (94-98) ABG Sodium (136.0-145.0) mmol/L ABG Potassium (3.40-4.50) mmol/L ABG Glucose (65-95) mg/dL Chloride (98-107) mmol/L Carbon Dioxide (22-30) mmol/L BUN (9-20) mg/dL Creatinine (0.8-1.3) mg/dL Glucose (75-100) mg/dL POC Glucose 405 H 132 H (70-105) mg/dL Lactic Acid (0.7-2.0) mmol/L Calcium (8.4-10.2) mg/dL Phosphorus (2.5-4.5) mg/dL Total Bilirubin (0.1-1.2) mg/dL AST (5-40) units/L ALT (7-56) units/L Total Creatine Kinase (55-170) units/L Total Protein (6.3-8.2) g/dL Albumin (3.9-5) g/dL Arterial Blood Glucose (65-95) mg/dL Arterial Blood Ionized Calcium (4.6-5.3) mg/dL Urine Creatinine 49.3 H (0.1-20.0) mg/dL Urine Total Protein 59 H (5-11.8) mg/dL 07/27/20 07/27/20 07/27/20 Range/Units 19:24 19:24 21:22 WBC (4.5-11.0) K/mm3 RBC (3.65-5.03) M/mm3 Hgb (11.8-15.2) gm/dl MCV (84-94) fl MCH (28-32) pg RDW (13.2-15.2) % Plt Count (140-440) K/mm3 ABG pH (7.320-7.450) POC ABG pCO2 (32.0-48.0) mmHg POC ABG pO2 (83-108) mmHg ABG Hemoglobin (12.0-17.5) ABG Oxyhemoglobin (94-98) ABG Sodium (136.0-145.0) mmol/L ABG Potassium (3.40-4.50) mmol/L ABG Glucose (65-95) mg/dL Chloride (98-107) mmol/L Carbon Dioxide (22-30) mmol/L BUN (9-20) mg/dL Creatinine (0.8-1.3) mg/dL Glucose (75-100) mg/dL POC Glucose < 10 L (70-105) mg/dL Lactic Acid 9.80 H* (0.7-2.0) mmol/L Calcium (8.4-10.2) mg/dL Phosphorus 4.80 H (2.5-4.5) mg/dL Total Bilirubin (0.1-1.2) mg/dL AST (5-40) units/L ALT (7-56) units/L Total Creatine Kinase 7030 H (55-170) units/L Total Protein (6.3-8.2) g/dL Albumin (3.9-5) g/dL Arterial Blood Glucose (65-95) mg/dL Arterial Blood Ionized Calcium (4.6-5.3) mg/dL Urine Creatinine (0.1-20.0) mg/dL Urine Total Protein (5-11.8) mg/dL 07/27/20 07/27/20 07/27/20 Range/Units 21:24 21:30 22:15 WBC (4.5-11.0) K/mm3 RBC (3.65-5.03) M/mm3 Hgb (11.8-15.2) gm/dl MCV (84-94) fl MCH (28-32) pg RDW (13.2-15.2) % Plt Count (140-440) K/mm3 ABG pH 6.917 L (7.320-7.450) POC ABG pCO2 53.6 H (32.0-48.0) mmHg POC ABG pO2 48.0 L (83-108) mmHg ABG Hemoglobin (12.0-17.5) ABG Oxyhemoglobin 54.4 L (94-98) ABG Sodium 133.3 L (136.0-145.0) mmol/L ABG Potassium (3.40-4.50) mmol/L ABG Glucose 139 H (65-95) mg/dL Chloride (98-107) mmol/L Carbon Dioxide 11 L D (22-30) mmol/L BUN 63 H (9-20) mg/dL Creatinine 4.9 H (0.8-1.3) mg/dL Glucose 72 L (75-100) mg/dL POC Glucose < 10 L (70-105) mg/dL Lactic Acid (0.7-2.0) mmol/L Calcium 7.1 L (8.4-10.2) mg/dL Phosphorus (2.5-4.5) mg/dL Total Bilirubin (0.1-1.2) mg/dL AST 2750 H (5-40) units/L ALT 1351 H (7-56) units/L Total Creatine Kinase (55-170) units/L Total Protein 4.3 L D (6.3-8.2) g/dL Albumin 1.5 L (3.9-5) g/dL Arterial Blood Glucose 139 H (65-95) mg/dL Arterial Blood Ionized Calcium 4.1 L (4.6-5.3) mg/dL Urine Creatinine (0.1-20.0) mg/dL Urine Total Protein (5-11.8) mg/dL 07/28/20 07/28/20 07/28/20 Range/Units 01:37 02:09 03:10 WBC (4.5-11.0) K/mm3 RBC (3.65-5.03) M/mm3 Hgb (11.8-15.2) gm/dl MCV (84-94) fl MCH (28-32) pg RDW (13.2-15.2) % Plt Count (140-440) K/mm3 ABG pH 7.164 L (7.320-7.450) POC ABG pCO2 19.9 L (32.0-48.0) mmHg POC ABG pO2 295.6 H (83-108) mmHg ABG Hemoglobin 11.8 L (12.0-17.5) ABG Oxyhemoglobin 99.2 H (94-98) ABG Sodium 133.4 L (136.0-145.0) mmol/L ABG Potassium 4.8 H (3.40-4.50) mmol/L ABG Glucose 521 H (65-95) mg/dL Chloride (98-107) mmol/L Carbon Dioxide (22-30) mmol/L BUN (9-20) mg/dL Creatinine (0.8-1.3) mg/dL Glucose (75-100) mg/dL POC Glucose 19 L 37 L (70-105) mg/dL Lactic Acid (0.7-2.0) mmol/L Calcium (8.4-10.2) mg/dL Phosphorus (2.5-4.5) mg/dL Total Bilirubin (0.1-1.2) mg/dL AST (5-40) units/L ALT (7-56) units/L Total Creatine Kinase (55-170) units/L Total Protein (6.3-8.2) g/dL Albumin (3.9-5) g/dL Arterial Blood Glucose 521 H (65-95) mg/dL Arterial Blood Ionized Calcium 3.6 L (4.6-5.3) mg/dL Urine Creatinine (0.1-20.0) mg/dL Urine Total Protein (5-11.8) mg/dL 07/28/20 07/28/20 07/28/20 Range/Units 03:25 04:00 04:00 WBC 16.1 H (4.5-11.0) K/mm3 RBC 3.25 L (3.65-5.03) M/mm3 Hgb 11.2 L D (11.8-15.2) gm/dl MCV 109 H (84-94) fl MCH 34 H (28-32) pg RDW 15.6 H (13.2-15.2) % Plt Count 109 L (140-440) K/mm3 ABG pH (7.320-7.450) POC ABG pCO2 (32.0-48.0) mmHg POC ABG pO2 (83-108) mmHg ABG Hemoglobin (12.0-17.5) ABG Oxyhemoglobin (94-98) ABG Sodium (136.0-145.0) mmol/L ABG Potassium (3.40-4.50) mmol/L ABG Glucose (65-95) mg/dL Chloride (98-107) mmol/L Carbon Dioxide (22-30) mmol/L BUN (9-20) mg/dL Creatinine (0.8-1.3) mg/dL Glucose (75-100) mg/dL POC Glucose 21 L (70-105) mg/dL Lactic Acid 15.60 H* (0.7-2.0) mmol/L Calcium (8.4-10.2) mg/dL Phosphorus (2.5-4.5) mg/dL Total Bilirubin (0.1-1.2) mg/dL AST (5-40) units/L ALT (7-56) units/L Total Creatine Kinase (55-170) units/L Total Protein (6.3-8.2) g/dL Albumin (3.9-5) g/dL Arterial Blood Glucose (65-95) mg/dL Arterial Blood Ionized Calcium (4.6-5.3) mg/dL Urine Creatinine (0.1-20.0) mg/dL Urine Total Protein (5-11.8) mg/dL 07/28/20 07/28/20 07/28/20 Range/Units 04:00 04:00 04:12 WBC (4.5-11.0) K/mm3 RBC (3.65-5.03) M/mm3 Hgb (11.8-15.2) gm/dl MCV (84-94) fl MCH (28-32) pg RDW (13.2-15.2) % Plt Count (140-440) K/mm3 ABG pH (7.320-7.450) POC ABG pCO2 (32.0-48.0) mmHg POC ABG pO2 (83-108) mmHg ABG Hemoglobin (12.0-17.5) ABG Oxyhemoglobin (94-98) ABG Sodium (136.0-145.0) mmol/L ABG Potassium (3.40-4.50) mmol/L ABG Glucose (65-95) mg/dL Chloride 95.8 L (98-107) mmol/L Carbon Dioxide 9 L* (22-30) mmol/L BUN 64 H (9-20) mg/dL Creatinine 5.1 H (0.8-1.3) mg/dL Glucose 372 H (75-100) mg/dL POC Glucose 25 L 342 H (70-105) mg/dL Lactic Acid (0.7-2.0) mmol/L Calcium 6.6 L (8.4-10.2) mg/dL Phosphorus (2.5-4.5) mg/dL Total Bilirubin 1.30 H (0.1-1.2) mg/dL AST 3927 H (5-40) units/L ALT 1752 H (7-56) units/L Total Creatine Kinase (55-170) units/L Total Protein 4.0 L (6.3-8.2) g/dL Albumin 1.4 L (3.9-5) g/dL Arterial Blood Glucose (65-95) mg/dL Arterial Blood Ionized Calcium (4.6-5.3) mg/dL Urine Creatinine (0.1-20.0) mg/dL Urine Total Protein (5-11.8) mg/dL 07/28/20 07/28/20 Range/Units 07:17 11:42 WBC (4.5-11.0) K/mm3 RBC (3.65-5.03) M/mm3 Hgb (11.8-15.2) gm/dl MCV (84-94) fl MCH (28-32) pg RDW (13.2-15.2) % Plt Count (140-440) K/mm3 ABG pH (7.320-7.450) POC ABG pCO2 (32.0-48.0) mmHg POC ABG pO2 (83-108) mmHg ABG Hemoglobin (12.0-17.5) ABG Oxyhemoglobin (94-98) ABG Sodium (136.0-145.0) mmol/L ABG Potassium (3.40-4.50) mmol/L ABG Glucose (65-95) mg/dL Chloride (98-107) mmol/L Carbon Dioxide (22-30) mmol/L BUN (9-20) mg/dL Creatinine (0.8-1.3) mg/dL Glucose (75-100) mg/dL POC Glucose 204 H 169 H (70-105) mg/dL Lactic Acid (0.7-2.0) mmol/L Calcium (8.4-10.2) mg/dL Phosphorus (2.5-4.5) mg/dL Total Bilirubin (0.1-1.2) mg/dL AST (5-40) units/L ALT (7-56) units/L Total Creatine Kinase (55-170) units/L Total Protein (6.3-8.2) g/dL Albumin (3.9-5) g/dL Arterial Blood Glucose (65-95) mg/dL Arterial Blood Ionized Calcium (4.6-5.3) mg/dL Urine Creatinine (0.1-20.0) mg/dL Urine Total Protein (5-11.8) mg/dL
[2020-07-28] MEDS ORDERED: SODIUM CHLORIDE 0.9% 1000 ML 1,000 ML IV SCH (14:15)
[2020-07-28] MEDS: CEFEPIME/NS 2 GM/100 ML 2 GM/100 ML BAG IV SCH (14:22)
--- NOTE | 2020-07-28 14:46 | Procedure Note ---
Date of procedure: 07/28/20 Pre-op diagnosis: respiratory failure Post-op diagnosis: same Procedure: CENTRAL LINE INSERTION Emergent placement Pt hypotensive; weak and thready pulses NBP not able to read BP Non pulsatile radial artery with ultrasound- unable to place radial to US probe placed on chest- cardiac activity noted Pt on vaso, NE, phenyl., and dopamine 1 amp Ca 1 amp epi Epi gtt ordered Blood sugar "low" using accu check obtained with capillary sample 1 amp D5W right femoral triple lumen placed without difficulty minimal bleeding site prepped with CHG; sterile barrier created line inserted with difficulty Pt tolerated well Dr Cummings aware- calling family Dr Rodriguez at bedside Estimated blood loss: none Pathology: none Condition: critical Disposition: ICU
[2020-07-28] MEDS ORDERED: HYDROCORTISONE SOD SUCC 100 MG/2 ML VIAL IV SCH (15:00)
--- NOTE | 2020-07-28 15:39 | Progress Note ---
Assessment and Plan Severe sepsis with shock Urinary tract infection NSTEMI Acute toxic metabolic encephalopathy CRISTIAN Hyperkalemia Obesity Leukocytosis Coagulopath Shock liver Metabolic acidosis (HAGMA) Lactic acidosis - s/p cardiac arrest with ROSC - now made DNR by NOK - too unstable for dialysis - continue bicarbonate supplementation - wean vasopressors for target MAP > 65 mmHg - add stress dose systemic steroids - continue to hyperventilate acutely - continue Daily SAT and SBT assessment as tolerated - continue to wean supplemental oxygen for target O2 sat's > 90% acutely - VAP bundle addressed - continue lung protective strategies - continue bronchodilators with pulmonary hygiene per RT - wean per pulmonary driven protocols otherwise - continue accuchecks with glycemic control per SSI (While critically ill target blood glucose of 140-180 mg/dL; avoid hypoglycemia) - sedation prn for target RASS 0 to -1 - avoid nephrotoxins, renally dose all medications - continue to avoid benzodiazepine's, reduce the possibility of delirium - complete AB's per ID rec's - prn analgesia per CPOT score - Maintenance of sleep-wake cycle, avoid delirium - continue enteral nutritional support at goal rate as tolerated - G.I. & VTE prophylaxis - PT/OT/ROM exercises - continue mobility protocols for pressure ulcer prophylaxis - Monitor hemodynamics closely - continue other care per attending / other consultants - discharge planning ongoing concurrently COVID SPECIFIC INTERVENTIONS - COVID-19 PCR negative .... Re-evaluate in am & prn CONDITION: CRITICAL PROGNOSIS: GUARDED CODE STATUS: FULL CODE The high probability of a clinically significant, sudden or life-threatening deterioration of the [respiratory, cardiovascular, renal & neurologic] system(s) required my full and direct attention, intervention and personal management. The aggregate critical care time was [45] minutes without overlap. Time includes spent on; [x] Data Review and interpretation [x] Patient assessment and monitoring of vital signs [x] Documentation [x] Medication orders and management Subjective Date of service: 07/28/20 Principal diagnosis: Abnormal LFTs Interval history: Patient is seen today for: Severe sepsis with shock; UTI; NSTEMI; Acute toxic metabolic encephalopathy; CRISTIAN; Shock liver; Lactic acidosis Seen and examined at bedside; 24hour events reviewed; nursing and respiratory care staff consulted; no adverse overnight events reported to me; resting peacefully in bed; remains on MVS; very busy night; now on multiple vasopressors and intubated; afebrile; no seizure activity and no gross bleeding; also receiving bicabonate drip Objective Vital Signs - 12hr 07/28/20 07/28/20 07/28/20 03:53 04:00 04:30 Temperature 97.4 F L Pulse Rate 112 H 111 H 114 H Pulse Rate [ From Monitor] Respiratory 30 H 29 H 30 H Rate Blood Pressure 124/96 124/96 125/102 Blood Pressure [Left] 07/28/20 07/28/20 07/28/20 05:00 05:15 05:30 Temperature Pulse Rate 112 H 118 H Pulse Rate [ From Monitor] Respiratory 30 H 30 H Rate Blood Pressure 110/84 84/50 Blood Pressure 84/50 51/33 [Left] 07/28/20 07/28/20 07/28/20 05:41 06:00 06:01 Temperature Pulse Rate 118 H 109 H Pulse Rate [ From Monitor] Respiratory 30 H Rate Blood Pressure 71/26 Blood Pressure 59/19 [Left] 07/28/20 07/28/20 07/28/20 06:30 07:00 07:30 Temperature Pulse Rate 108 H 110 H 115 H Pulse Rate [ From Monitor] Respiratory 26 H 30 H 14 Rate Blood Pressure 71/26 71/26 77/52 Blood Pressure [Left] 07/28/20 07/28/20 07/28/20 08:00 08:30 09:00 Temperature 97.3 F L Pulse Rate 114 H 113 H 108 H Pulse Rate [ 114 H From Monitor] Respiratory 30 H 30 H 30 H Rate Blood Pressure 71/26 77/52 77/52 Blood Pressure [Left] 07/28/20 07/28/20 07/28/20 09:12 09:30 10:00 Temperature Pulse Rate 106 H 103 H 95 H Pulse Rate [ From Monitor] Respiratory 30 H 30 H 30 H Rate Blood Pressure 77/52 77/52 Blood Pressure [Left] 07/28/20 07/28/20 10:30 12:27 Temperature Pulse Rate 93 H 94 H Pulse Rate [ From Monitor] Respiratory 30 H 30 H Rate Blood Pressure 77/52 Blood Pressure [Left] Constitutional: no acute distress, other (elderly obese male riding set rate on [employer]) Eyes: non-icteric ENT: oropharynx moist, other (ETT 24 cm RAJESH) Neck: supple, no lymphadenopathy, no JVD Effort: mildly labored Ascultation: Bilateral: diminished breath sounds, rhonchi Percussion: Bilateral: not dull Cardiovascular: irregular rhythm Gastrointestinal: hypoactive bowel sounds, soft, non-tender, non-distended (protuberant) Integumentary: rash Extremities: no cyanosis, pulses normal, no ischemia or petechiae Neurologic: pupils equal and round, unable to assess Psychiatric: other (unable to assess re: AMS) CBC and BMP: 07/28/20 04:00 07/28/20 04:00 ABG, PT/INR, D-dimer: ABG ABG pH 7.261 (7.320-7.450) L 07/28/20 14:20 POC ABG pCO2 18.7 mmHg (32.0-48.0) L 07/28/20 14:20 POC ABG pO2 462.5 mmHg (83-108) H 07/28/20 14:20 POC ABG HCO3 8.2 07/28/20 14:20 ABG O2 Saturation 99.7 (0-100) 07/28/20 14:20 PT/INR, D-dimer PT 22.9 Sec. (12.2-14.9) H 07/26/20 18:33 INR 1.96 (0.87-1.13) H 07/26/20 18:33 Abnormal lab findings: Abnormal Labs 07/26/20 07/26/20 07/26/20 18:33 18:33 18:33 WBC 19.0 H RBC 3.50 L Hgb MCV 106 H MCH 35 H RDW Plt Count Seg Neuts % (Manual) 96.0 H Lymphocytes % (Manual) 3.0 L Seg Neutrophils # Man 18.2 H Lymphocytes # (Manual) 0.6 L PT 22.9 H INR 1.96 H APTT 42.3 H ABG pH POC ABG pCO2 POC ABG pO2 ABG Hemoglobin ABG Oxyhemoglobin ABG Sodium ABG Potassium ABG Chloride ABG Glucose Carboxyhemoglobin Sodium 127 L Potassium 6.0 H Chloride 88.4 L Carbon Dioxide 10 L BUN 84 H Creatinine 6.0 H Glucose 157 H POC Glucose Lactic Acid Calcium Phosphorus Total Bilirubin Direct Bilirubin AST 948 H ALT 292 H Total Creatine Kinase Troponin T Total Protein 5.2 L Albumin 2.0 L Triglycerides LDL Cholesterol Direct HDL Cholesterol Arterial Blood Glucose Arterial Blood Ionized Calcium Urine WBC (Auto) Urine Creatinine Urine Total Protein 07/26/20 07/26/20 07/26/20 18:33 19:16 20:14 WBC RBC Hgb MCV MCH RDW Plt Count Seg Neuts % (Manual) Lymphocytes % (Manual) Seg Neutrophils # Man Lymphocytes # (Manual) PT INR APTT ABG pH 7.182 L POC ABG pCO2 29.7 L POC ABG pO2 28.5 L ABG Hemoglobin ABG Oxyhemoglobin 36.0 L ABG Sodium 130.1 L ABG Potassium 5.4 H ABG Chloride 96.0 L ABG Glucose Carboxyhemoglobin 0.3 L Sodium Potassium Chloride Carbon Dioxide BUN Creatinine Glucose POC Glucose Lactic Acid 13.00 H* Calcium Phosphorus Total Bilirubin Direct Bilirubin AST ALT Total Creatine Kinase Troponin T 0.113 H* Total Protein Albumin Triglycerides 173 H LDL Cholesterol Direct 36 L HDL Cholesterol 28 L Arterial Blood Glucose Arterial Blood Ionized Calcium 4.5 L Urine WBC (Auto) Urine Creatinine Urine Total Protein 07/26/20 07/26/20 07/27/20 21:07 23:03 00:52 WBC RBC Hgb MCV MCH RDW Plt Count Seg Neuts % (Manual) Lymphocytes % (Manual) Seg Neutrophils # Man Lymphocytes # (Manual) PT INR APTT ABG pH POC ABG pCO2 POC ABG pO2 ABG Hemoglobin ABG Oxyhemoglobin ABG Sodium ABG Potassium ABG Chloride ABG Glucose Carboxyhemoglobin Sodium Potassium Chloride Carbon Dioxide BUN Creatinine Glucose POC Glucose Lactic Acid 8.90 H* 3.40 H* 2.80 H* Calcium Phosphorus Total Bilirubin Direct Bilirubin AST ALT Total Creatine Kinase Troponin T Total Protein Albumin Triglycerides LDL Cholesterol Direct HDL Cholesterol Arterial Blood Glucose Arterial Blood Ionized Calcium Urine WBC (Auto) Urine Creatinine Urine Total Protein 07/27/20 07/27/20 07/27/20 01:57 03:00 03:00 WBC RBC Hgb MCV MCH RDW Plt Count Seg Neuts % (Manual) Lymphocytes % (Manual) Seg Neutrophils # Man Lymphocytes # (Manual) PT INR APTT ABG pH POC ABG pCO2 POC ABG pO2 ABG Hemoglobin ABG Oxyhemoglobin ABG Sodium ABG Potassium ABG Chloride ABG Glucose Carboxyhemoglobin Sodium Potassium Chloride Carbon Dioxide BUN Creatinine Glucose POC Glucose Lactic Acid 2.60 H* Calcium Phosphorus Total Bilirubin Direct Bilirubin AST ALT Total Creatine Kinase 3551 H Troponin T Total Protein Albumin Triglycerides LDL Cholesterol Direct HDL Cholesterol Arterial Blood Glucose Arterial Blood Ionized Calcium Urine WBC (Auto) > 182.0 H Urine Creatinine Urine Total Protein 07/27/20 07/27/20 07/27/20 07:21 11:16 12:50 WBC RBC Hgb MCV MCH RDW Plt Count Seg Neuts % (Manual) Lymphocytes % (Manual) Seg Neutrophils # Man Lymphocytes # (Manual) PT INR APTT ABG pH POC ABG pCO2 POC ABG pO2 ABG Hemoglobin ABG Oxyhemoglobin ABG Sodium ABG Potassium ABG Chloride ABG Glucose Carboxyhemoglobin Sodium Potassium Chloride Carbon Dioxide BUN Creatinine Glucose POC Glucose 29 L 33 L Lactic Acid 4.00 H* Calcium Phosphorus Total Bilirubin Direct Bilirubin AST ALT Total Creatine Kinase Troponin T Total Protein Albumin Triglycerides LDL Cholesterol Direct HDL Cholesterol Arterial Blood Glucose Arterial Blood Ionized Calcium Urine WBC (Auto) Urine Creatinine Urine Total Protein 07/27/20 07/27/20 07/27/20 13:12 13:26 13:33 WBC RBC Hgb MCV MCH RDW Plt Count Seg Neuts % (Manual) Lymphocytes % (Manual) Seg Neutrophils # Man Lymphocytes # (Manual) PT INR APTT ABG pH POC ABG pCO2 24.4 L POC ABG pO2 446.8 H ABG Hemoglobin ABG Oxyhemoglobin 99.0 H ABG Sodium 128.9 L ABG Potassium ABG Chloride ABG Glucose 552 H Carboxyhemoglobin 0.3 L Sodium Potassium Chloride Carbon Dioxide BUN Creatinine Glucose POC Glucose 43 L 405 H Lactic Acid Calcium Phosphorus Total Bilirubin Direct Bilirubin AST ALT Total Creatine Kinase Troponin T Total Protein Albumin Triglycerides LDL Cholesterol Direct HDL Cholesterol Arterial Blood Glucose 552 H Arterial Blood Ionized Calcium 4.1 L Urine WBC (Auto) Urine Creatinine Urine Total Protein 07/27/20 07/27/20 07/27/20 16:32 17:21 19:24 WBC RBC Hgb MCV MCH RDW Plt Count Seg Neuts % (Manual) Lymphocytes % (Manual) Seg Neutrophils # Man Lymphocytes # (Manual) PT INR APTT ABG pH POC ABG pCO2 POC ABG pO2 ABG Hemoglobin ABG Oxyhemoglobin ABG Sodium ABG Potassium ABG Chloride ABG Glucose Carboxyhemoglobin Sodium Potassium Chloride Carbon Dioxide BUN Creatinine Glucose POC Glucose 132 H Lactic Acid 9.80 H* Calcium Phosphorus Total Bilirubin Direct Bilirubin AST ALT Total Creatine Kinase Troponin T Total Protein Albumin Triglycerides LDL Cholesterol Direct HDL Cholesterol Arterial Blood Glucose Arterial Blood Ionized Calcium Urine WBC (Auto) Urine Creatinine 49.3 H Urine Total Protein 59 H 07/27/20 07/27/20 07/27/20 19:24 21:22 21:24 WBC RBC Hgb MCV MCH RDW Plt Count Seg Neuts % (Manual) Lymphocytes % (Manual) Seg Neutrophils # Man Lymphocytes # (Manual) PT INR APTT ABG pH POC ABG pCO2 POC ABG pO2 ABG Hemoglobin ABG Oxyhemoglobin ABG Sodium ABG Potassium ABG Chloride ABG Glucose Carboxyhemoglobin Sodium Potassium Chloride Carbon Dioxide BUN Creatinine Glucose POC Glucose < 10 L < 10 L Lactic Acid Calcium Phosphorus 4.80 H Total Bilirubin Direct Bilirubin AST ALT Total Creatine Kinase 7030 H Troponin T Total Protein Albumin Triglycerides LDL Cholesterol Direct HDL Cholesterol Arterial Blood Glucose Arterial Blood Ionized Calcium Urine WBC (Auto) Urine Creatinine Urine Total Protein 07/27/20 07/27/20 07/27/20 21:30 22:15 Unknown WBC RBC Hgb MCV MCH RDW Plt Count Seg Neuts % (Manual) Lymphocytes % (Manual) Seg Neutrophils # Man Lymphocytes # (Manual) PT INR APTT ABG pH 6.917 L POC ABG pCO2 53.6 H POC ABG pO2 48.0 L ABG Hemoglobin ABG Oxyhemoglobin 54.4 L ABG Sodium 133.3 L ABG Potassium ABG Chloride ABG Glucose 139 H Carboxyhemoglobin Sodium Potassium Chloride Carbon Dioxide 11 L D BUN 63 H Creatinine 4.9 H Glucose 72 L POC Glucose Lactic Acid Calcium 7.1 L Phosphorus Total Bilirubin Direct Bilirubin AST 2750 H ALT 1351 H Total Creatine Kinase Troponin T 0.159 H* D Total Protein 4.3 L D Albumin 1.5 L Triglycerides LDL Cholesterol Direct HDL Cholesterol Arterial Blood Glucose 139 H Arterial Blood Ionized Calcium 4.1 L Urine WBC (Auto) Urine Creatinine Urine Total Protein 07/27/20 07/27/20 07/27/20 Unknown Unknown Unknown WBC RBC Hgb MCV MCH RDW Plt Count Seg Neuts % (Manual) Lymphocytes % (Manual) Seg Neutrophils # Man Lymphocytes # (Manual) PT INR APTT ABG pH POC ABG pCO2 POC ABG pO2 ABG Hemoglobin ABG Oxyhemoglobin ABG Sodium ABG Potassium ABG Chloride ABG Glucose Carboxyhemoglobin Sodium 134 L D Potassium Chloride 95.9 L Carbon Dioxide 18 L D BUN 86 H Creatinine 5.4 H Glucose 143 H POC Glucose Lactic Acid 3.40 H* Calcium 8.3 L Phosphorus Total Bilirubin Direct Bilirubin AST ALT Total Creatine Kinase 7505 H Troponin T Total Protein Albumin Triglycerides LDL Cholesterol Direct HDL Cholesterol Arterial Blood Glucose Arterial Blood Ionized Calcium Urine WBC (Auto) Urine Creatinine Urine Total Protein 07/27/20 07/27/20 07/28/20 Unknown Unknown 01:37 WBC 17.2 H RBC Hgb MCV 103 H MCH 34 H RDW Plt Count Seg Neuts % (Manual) Lymphocytes % (Manual) 7.0 L Seg Neutrophils # Man 9.6 H Lymphocytes # (Manual) PT INR APTT ABG pH POC ABG pCO2 POC ABG pO2 ABG Hemoglobin ABG Oxyhemoglobin ABG Sodium ABG Potassium ABG Chloride ABG Glucose Carboxyhemoglobin Sodium Potassium Chloride Carbon Dioxide BUN Creatinine Glucose POC Glucose 19 L Lactic Acid Calcium Phosphorus Total Bilirubin Direct Bilirubin 0.7 H AST 65 H ALT 1671 H Total Creatine Kinase Troponin T Total Protein 6.0 L Albumin 2.3 L Triglycerides LDL Cholesterol Direct HDL Cholesterol Arterial Blood Glucose Arterial Blood Ionized Calcium Urine WBC (Auto) Urine Creatinine Urine Total Protein 07/28/20 07/28/20 07/28/20 02:09 03:10 03:25 WBC RBC Hgb MCV MCH RDW Plt Count Seg Neuts % (Manual) Lymphocytes % (Manual) Seg Neutrophils # Man Lymphocytes # (Manual) PT INR APTT ABG pH 7.164 L POC ABG pCO2 19.9 L POC ABG pO2 295.6 H ABG Hemoglobin 11.8 L ABG Oxyhemoglobin 99.2 H ABG Sodium 133.4 L ABG Potassium 4.8 H ABG Chloride ABG Glucose 521 H Carboxyhemoglobin Sodium Potassium Chloride Carbon Dioxide BUN Creatinine Glucose POC Glucose 37 L 21 L Lactic Acid Calcium Phosphorus Total Bilirubin Direct Bilirubin AST ALT Total Creatine Kinase Troponin T Total Protein Albumin Triglycerides LDL Cholesterol Direct HDL Cholesterol Arterial Blood Glucose 521 H Arterial Blood Ionized Calcium 3.6 L Urine WBC (Auto) Urine Creatinine Urine Total Protein 07/28/20 07/28/20 07/28/20 04:00 04:00 04:00 WBC 16.1 H RBC 3.25 L Hgb 11.2 L D MCV 109 H MCH 34 H RDW 15.6 H Plt Count 109 L Seg Neuts % (Manual) Lymphocytes % (Manual) Seg Neutrophils # Man Lymphocytes # (Manual) PT INR APTT ABG pH POC ABG pCO2 POC ABG pO2 ABG Hemoglobin ABG Oxyhemoglobin ABG Sodium ABG Potassium ABG Chloride ABG Glucose Carboxyhemoglobin Sodium Potassium Chloride 95.8 L Carbon Dioxide 9 L* BUN 64 H Creatinine 5.1 H Glucose 372 H POC Glucose Lactic Acid 15.60 H* Calcium 6.6 L Phosphorus Total Bilirubin 1.30 H Direct Bilirubin AST 3927 H ALT 1752 H Total Creatine Kinase Troponin T Total Protein 4.0 L Albumin 1.4 L Triglycerides LDL Cholesterol Direct HDL Cholesterol Arterial Blood Glucose Arterial Blood Ionized Calcium Urine WBC (Auto) Urine Creatinine Urine Total Protein 07/28/20 07/28/20 07/28/20 04:00 04:12 07:17 WBC RBC Hgb MCV MCH RDW Plt Count Seg Neuts % (Manual) Lymphocytes % (Manual) Seg Neutrophils # Man Lymphocytes # (Manual) PT INR APTT ABG pH POC ABG pCO2 POC ABG pO2 ABG Hemoglobin ABG Oxyhemoglobin ABG Sodium ABG Potassium ABG Chloride ABG Glucose Carboxyhemoglobin Sodium Potassium Chloride Carbon Dioxide BUN Creatinine Glucose POC Glucose 25 L 342 H 204 H Lactic Acid Calcium Phosphorus Total Bilirubin Direct Bilirubin AST ALT Total Creatine Kinase Troponin T Total Protein Albumin Triglycerides LDL Cholesterol Direct HDL Cholesterol Arterial Blood Glucose Arterial Blood Ionized Calcium Urine WBC (Auto) Urine Creatinine Urine Total Protein 07/28/20 07/28/20 07/28/20 11:42 12:47 12:51 WBC RBC Hgb MCV MCH RDW Plt Count Seg Neuts % (Manual) Lymphocytes % (Manual) Seg Neutrophils # Man Lymphocytes # (Manual) PT INR APTT ABG pH POC ABG pCO2 POC ABG pO2 ABG Hemoglobin ABG Oxyhemoglobin ABG Sodium ABG Potassium ABG Chloride ABG Glucose Carboxyhemoglobin Sodium Potassium Chloride Carbon Dioxide BUN Creatinine Glucose POC Glucose 169 H 151 H < 10 L Lactic Acid Calcium Phosphorus Total Bilirubin Direct Bilirubin AST ALT Total Creatine Kinase Troponin T Total Protein Albumin Triglycerides LDL Cholesterol Direct HDL Cholesterol Arterial Blood Glucose Arterial Blood Ionized Calcium Urine WBC (Auto) Urine Creatinine Urine Total Protein 07/28/20 07/28/20 07/28/20 13:16 13:17 14:20 WBC RBC Hgb MCV MCH RDW Plt Count Seg Neuts % (Manual) Lymphocytes % (Manual) Seg Neutrophils # Man Lymphocytes # (Manual) PT INR APTT ABG pH 6.810 L 7.261 L POC ABG pCO2 14.6 L 18.7 L POC ABG pO2 431.5 H 462.5 H ABG Hemoglobin 4.6 L 2.7 L ABG Oxyhemoglobin ABG Sodium 146.9 H ABG Potassium 7.7 H 7.9 H ABG Chloride ABG Glucose 373 H 253 H Carboxyhemoglobin 2.4 H 2.1 H Sodium Potassium Chloride Carbon Dioxide BUN Creatinine Glucose POC Glucose 199 H Lactic Acid Calcium Phosphorus Total Bilirubin Direct Bilirubin AST ALT Total Creatine Kinase Troponin T Total Protein Albumin Triglycerides LDL Cholesterol Direct HDL Cholesterol Arterial Blood Glucose 373 H 253 H Arterial Blood Ionized Calcium 3.9 L Urine WBC (Auto) Urine Creatinine Urine Total Protein Chest x-ray: image reviewed (LLL infiltrate vs atelectasis) Allied health notes reviewed: nursing
--- NOTE | 2020-07-28 15:56 | Death Summary ---
Summary - Providers Date of service: 07/28/20 Consults: 07/27/20 Consult to Physician [CONS] Routine Comment: Consulting Provider: SELENA MARTINEZ Physician Instructions: Reason For Exam: Sepsis,AMS R/O CVA 07/27/20 02:08 Consult to Dietitian/Nutrition [CONS] Routine Physician Instructions: Reason For Exam: Reason for Consult: Malnutrition 07/27/20 03:13 Occupational Therapy Evaluate and Treat [CONS] Routine Comment: Reason For Exam: Neuro deficits Physical Therapy Evaluation and Treat [CONS] Routine Comment: Reason For Exam: Neuro deficits 07/27/20 03:29 Consult to Physician [CONS] Routine Comment: Consulting Provider: SUNITA FISH Physician Instructions: Reason For Exam: CRISTIAN 07/27/20 06:47 Consult to Cardiology [CONS] Routine Consulting Provider: JHOAN BARBOUR Reason For Exam: ELEVATED TROPONIN 07/27/20 07:06 Consult to Physician [CONS] Routine Comment: Consulting Provider: MUSHTAQ DEWEY Physician Instructions: Reason For Exam: Elevated liver enzymes 07/27/20 09:00 Consult to Physician [CONS] Routine Comment: Consulting Provider: ALYSIA PETERS Physician Instructions: Reason For Exam: Sepsis 07/27/20 10:49 Consult to Physician [CONS] Urgent Comment: Consulting Provider: SELENA MARTINEZ Physician Instructions: Reason For Exam: Vasc cath placement 07/27/20 11:43 Consult to Physician [CONS] Routine Comment: Consulting Provider: DAYSI EDUARDO Physician Instructions: Reason For Exam: Acute CVA with rt side weakness 07/27/20 15:44 Consult to Wound/ET Nurse [CONS] Routine Reason For Exam: wound eval 07/28/20 00:02 Consult to Dietitian/Nutrition [CONS] Routine Physician Instructions: Reason For Exam: Reason for Consult: Evaluate nutritional intake Attending: JOSEILNE TUTTLE MD - summary Date of admission: 07/27/20 02:08 Date of : 07/28/20 Reason for admission: Acute right-sided weakness Significant findings: 80-year-old male brought into the emergency room today with right-sided weakness and changes in mental status. Was said to have been found by his neighbor in his car unresponsive and therefore EMS was called. Upon arrival of EMS blood glucose was said to be about 30. Blood pressure was also said to be low with systolic in the 70s and arriving in the emergency room and IV fluid. Patient was in acute respiratory distress in the emergency department as was placed on BiPAP. Labs significant for a WBC of 19, lactic acid 13. Chest x-ray was unremarkable, CT of the head and CT angiogram were unremarkable. BUN was 84 and creatinine was 6. Troponin was elevated at 0.113. Liver enzymes were also significantly elevated. CK was 3551. Patient was also diagnosed with a UTI. Patient is being admitted for multiple medical problems including right- sided weakness, sepsis possibly secondary to UTI, hypoglycemia, rhabdomyolysis, transaminitis, and acute renal failure. Cardiology was consulted, stated that elevated troponin was nonspecific, ordered echocardiogram, shows LVEF of 45 to 50%. GI was consulted for shock liver confounded by rhabdomyolysis, patient was given fluids and conservative management was initiated. Nephrology was consulted for CRISTIAN, plan for hemodialysis. However patient started to have significant respiratory distress overnight, was intubated and sent to the ICU. Patient was found to be this morning, patient was given fluid boluses and started on pressors. After placing the patient on maximum pressors, patient went into cardiac arrest. Hospitalist was at the bedside, ACLS was initiated. I spoke with the family, Sherif Gardner, brother and he stated the patient will wished to be DNR. We continued the pressors, however the blood pressure did not resolve and slowly down trended. The patient went into asystole and the patient passed at 15:28. family was contacted, test case developer will contact family pertaining to arrangements for the patient to be tra nsferred to the appropriate home. Physical exam Cardiac: No radial or carotid pulses, heartbeat absent Lungs: Patient breathing on vent Neurology: Pupils dilated, nonresponsive to light, normal responsive to painful stimuli . Disposition: at 15:28 Spoke with case management, they will contact the patient's brother, Sherif Gardner, [phone] to make arrangements for transfer to the appropriate home
--- NOTE | 2020-07-28 16:18 | Progress Note ---
Assessment and Plan Assessment Acute kidney injury Hematuria Proteinuria Pyuria Hyponatremia Hyperkalemia Hypochloremia Acidosis Acute respiratory failure. Intubated Acute encephalopathy. CT head negative for acute stroke/bleed Shock Recommendations F/u serologies F/u urine culture Continue IVF bicarb IV calcium gluconate ordered again HD stopped after an hour yesterday due to hemodynamic instability Currently on 3 vasopressors and remains hemodynamically unstable with MAP < 65 - not stable for HD at this time, plan for HD today if hemodynamic status improves with MAP > 65 Keep MAP more than 65 Glucose monitoring Agree with antibiotics Renally dose medications Avoid nephrotoxins Renal diet Poor prognosis Subjective Date of service: 07/28/20 Principal diagnosis: Abnormal LFTs Interval history: Patient now intubated. On 3 vasopressors. Objective - Exam Narrative Exam: General: Sedated. Intubated. HEENT: ATNC Neck: Supple, no JVD Chest: Intubated Heart: RRR, S1 and S2, no pericardial rub Abdomen: Soft, nontender, no renal bruit Extremity: No peripheral cyanosis, edema Neurological: Sedated Dermatology: No skin rash Psych: Unable to assess Musculoskeletal: No joint effusion - Vital Signs Vital signs: Vital Signs - 12hr 07/28/20 07/28/20 07/28/20 04:30 05:00 05:15 Temperature Pulse Rate 114 H 112 H Pulse Rate [ From Monitor] Respiratory 30 H 30 H Rate Blood Pressure 125/102 110/84 Blood Pressure 84/50 [Left] 07/28/20 07/28/20 07/28/20 05:30 05:41 06:00 Temperature Pulse Rate 118 H 118 H Pulse Rate [ From Monitor] Respiratory 30 H 30 H Rate Blood Pressure 84/50 71/26 Blood Pressure 51/33 59/19 [Left] 07/28/20 07/28/20 07/28/20 06:01 06:30 07:00 Temperature Pulse Rate 109 H 108 H 110 H Pulse Rate [ From Monitor] Respiratory 26 H 30 H Rate Blood Pressure 71/26 71/26 Blood Pressure [Left] 07/28/20 07/28/20 07/28/20 07:30 08:00 08:30 Temperature 97.3 F L Pulse Rate 115 H 114 H 113 H Pulse Rate [ 114 H From Monitor] Respiratory 14 30 H 30 H Rate Blood Pressure 77/52 71/26 77/52 Blood Pressure [Left] 07/28/20 07/28/20 07/28/20 09:00 09:12 09:30 Temperature Pulse Rate 108 H 106 H 103 H Pulse Rate [ From Monitor] Respiratory 30 H 30 H 30 H Rate Blood Pressure 77/52 77/52 Blood Pressure [Left] 07/28/20 07/28/20 07/28/20 10:00 10:30 12:27 Temperature Pulse Rate 95 H 93 H 94 H Pulse Rate [ From Monitor] Respiratory 30 H 30 H 30 H Rate Blood Pressure 77/52 77/52 Blood Pressure [Left] - Lab 07/28/20 04:00 07/28/20 04:00 Most recent lab results ABG pH 7.261 (7.320-7.450) L 07/28/20 14:20 ABG O2 Saturation 99.7 (0-100) 07/28/20 14:20 Calcium 6.6 mg/dL (8.4-10.2) L 07/28/20 04:00 Phosphorus 4.80 mg/dL (2.5-4.5) H 07/27/20 19:24 Urine Creatinine 49.3 mg/dL (0.1-20.0) H 07/27/20 16:32 Urine Total Protein 59 mg/dL (5-11.8) H 07/27/20 16:32 Medications & Allergies - Medications Allergies/Adverse Reactions: Allergies No Known Allergies Allergy (Unverified 07/26/20 18:56) Active Medications: Generic Name Dose Route Start Last Admin Trade Name Freq PRN Reason Stop Dose Admin Acetaminophen 650 mg 07/27/20 03:12 Acetaminophen 325 Mg Tab PO Q6H PRN Pain MILD(1-3)/Fever >100.5/LOWERY Aspirin 325 mg 07/27/20 10:00 07/28/20 10:20 Aspirin 325 Mg Tab PO Not Given QDAY VALERI Bisacodyl 10 mg 07/27/20 03:12 Bisacodyl 10 Mg Rect Supp MA QDAY PRN Constipation Dextrose 0 ml 07/27/20 03:12 07/28/20 03:33 Dextrose 50% In Water (25gm) 50 Ml Syringe IV 50 ml Q30MIN PRN Administration Hypoglycemia Protocol Famotidine 20 mg 07/28/20 10:00 07/28/20 10:19 Famotidine 20 Mg/2 Ml Inj IV 20 mg QAM VALERI Administration Hydrocortisone Sodium Succinate 100 mg 07/28/20 15:00 07/28/20 14:21 Hydrocortisone Sod Succ 100 Mg/2 Ml Vial IV 100 mg Q8HR VALERI Administration Hydrophilic Ointment 1 applic 07/28/20 00:02 Lip Therapy Vaseline TP Q2HR PRN Dry Lips NORepinephrine/NS 8 MG-250 ML 8 mg in 250 mls @ 3.75 mls/hr 07/26/20 21:00 07/28/20 06:20 Norepinephrine/Ns 8 Mg-250 Ml (Double Conc) IV 30 mcg/min TITRATE VALERI 56.25 mls/hr Administration Protocol 2 MCG/MIN Sodium Chloride 100 mls @ 999 mls/hr 07/27/20 11:04 Nacl 0.9% IV SOLEDAD PRN Hypotension Sodium Bicarbonate 150 meq/ 1,150 mls @ 150 mls/hr 07/27/20 13:00 07/28/20 09:21 Dextrose IV 07/30/20 20:39 150 mls/hr DIRECT VALERI Infusion Cefepime HCl 2 gm in 100 mls @ 200 mls/hr 07/27/20 14:00 07/28/20 14:22 Cefepime/Ns 2 Gm/100 Ml IV 200 mls/hr Q24H VALERI Administration Protocol Vasopressin 20 unit/ Sodium 101 mls @ 9.09 mls/hr 07/27/20 23:00 07/28/20 07:14 Chloride IV 0.03 units/min TITR VALERI 9.09 mls/hr Administration Protocol 0.03 UNITS/MIN Phenylephrine HCl 100 mg/ 100 mls @ 3 mls/hr 07/28/20 00:15 07/28/20 14:35 Sodium Chloride IV 400 mcg/min TITR VALERI 24 mls/hr Titration Protocol 50 MCG/MIN Dextrose/Sodium Chloride 1,000 mls @ 150 mls/hr 07/28/20 02:00 07/28/20 01:54 D5ns IV 150 mls/hr DIRECT VALERI Administration Propofol 1,000 mg in 100 mls @ 3.075 mls/hr 07/28/20 02:00 Diprivan 10 Mg/Ml IV TITR VALERI Protocol 5 MCG/KG/MIN Fentanyl Citrate 2,000 mcg in 100 mls @ 5.126 mls/hr 07/28/20 05:00 Fentanyl Drip Premix IV TITR VALERI Protocol 1 MCG/KG/HR Dopamine HCl/Dextrose 800 mg in 250 mls @ 3.844 mls/hr 07/28/20 11:00 07/28/20 11:26 Intropin Drip 800 Mg/D5w 250 Ml IV 4 mcg/kg/min TITR VALERI 7.688 mls/hr Titration Protocol 2 MCG/KG/MIN Epinephrine 8 mg/ Sodium 250 mls @ 3.75 mls/hr 07/28/20 13:30 07/28/20 14:17 Chloride IV 2 mcg/min TITR VALERI 3.75 mls/hr Administration Protocol 2 MCG/MIN Insulin Human Lispro 0 unit 07/28/20 07:00 07/28/20 12:59 Insulin Lispro 100 Unit/Ml SUB-Q Not Given Q6HR [facility] Protocol Magnesium Hydroxide 30 ml 07/27/20 03:12 Magnesium Hydroxide (Mom) Oral Liqd Udc PO Q4H PRN Constipation Metoclopramide HCl 5 mg 07/27/20 03:12 Metoclopramide 10 Mg Tab PO Q6H PRN Nausea And Vomiting Multi-Ingred Cream/Lotion/Oil/Oint 1 applic 07/28/20 00:02 Mineral Oil/Petrolatum, White Ophth Oint 3.5 Gm OU Q4HR PRN Dry Eye(s) Ondansetron HCl 4 mg 07/27/20 03:12 Ondansetron 4 Mg/2 Ml Inj IV Q8H PRN Nausea And Vomiting Promethazine HCl 25 mg 07/27/20 03:12 Promethazine 25 Mg Rect Supp MA Q6H PRN Nausea And Vomiting Senna/Docusate Sodium 1 tab 07/28/20 10:00 07/28/20 10:20 Sennosides/Docusate Sodium 8.6/50 Mg Tab FEEDTUBE Not Given BID VALERI Sodium Chloride 10 ml 07/27/20 10:00 07/28/20 10:19 Sodium Chloride 0.9% 10 Ml Flush Syringe IV 10 ml BID VALERI Administration Sodium Chloride 10 ml 07/27/20 02:08 Sodium Chloride 0.9% 10 Ml Flush Syringe IV PRN PRN LINE FLUSH
[2020-07-28 16:51] LABS: Albumin 0.4 g/dL (3.9-5); Calcium 9.5 mg/dL (8.4-10.2)
[2020-07-28 17:08] LABS: Fibrinogen TNR mg/dl (211-480); INR TNR (0.87-1.13); Partial Thromboplastin Time TNR Sec. (24.2-36.6)
[2020-07-28 18:33] VITALS: BP 67/34
[2020-07-30 12:28] LABS: ANA Screen, IFA Positive (Negative)
--- NOTE | 2020-07-30 13:05 | Electrocardiograph Report ---
[facility] Test Date: 2020-07-26 Test Time: 21:03:11 Pat Name: TEN IVEY Department: Room: A261 Gender: M Clarity Developer: [place] : 1940 Requested By: ESTHELA SALDAÑA Order Number: [id number] Reading MD: Luke Galo Measurements Intervals [place] Rate: 95 P: 73 UT: 184 QRS: -80 QRSD: 73 T: 143 QT: QTc: 0 Interpretive Statements Sinus rhythm Atrial premature complex Left axis deviation Nonspecific intraventricular conduction delay Nonspecific T abnrm, anterolateral leads No previous ECG available for comparison Electronically Signed On 07-30-2020 13:05:14 EDT by Luke Galo
[2020-07-30 14:08] LABS: Myeloperoxidase Antibody <1.0 AI (<1.0)
[2020-07-30 20:16] LABS: Albumin 1.8 g/dL (3.8-4.8); Gamma Globulin 0.8 g/dL (0.8-1.7)
[2020-08-02 11:01] LABS: Abnormal Protein Band 1 SEE SCANNED RESULT; Abnormal Protein Band 2 SEE SCANNED RESULT; Albumin SEE SCANNED RESULT; Creatinine, Random Urine SEE SCANNED RESULT; Gamma Globulin SEE SCANNED RESULT; Interpretation SEE SCANNED RESULT; Protein/Creatinine Ratio SEE SCANNED RESULT
== END 2020-07-28 18:00 | DRG 871 ==
LOC: ED 18:08 → CC1 07-27 02:08
PROVIDERS: ADMIT Internal Medicine Geriatric Medicine; ATTEND Family Medicine
PROC: 4A033R1 Measurement of Arterial Saturation, Peripheral, Percutaneous Approach (ICD-10-PCS; principal; 2020-07-26)
PROC: 06HY33Z Insertion of Infusion Device into Lower Vein, Percutaneous Approach (ICD-10-PCS; 2020-07-27)
PROC: 5A09457 Assistance with Respiratory Ventilation, 24-96 Consecutive Hours, Continuous Positive Airway Pressure (ICD-10-PCS; 2020-07-27)
PROC: 5A1D70Z Performance of Urinary Filtration, Intermittent, Less than 6 Hours Per Day (ICD-10-PCS; 2020-07-27)
PROC: 06HY33Z Insertion of Infusion Device into Lower Vein, Percutaneous Approach (ICD-10-PCS; 2020-07-28)
PROC: 5A1935Z Respiratory Ventilation, Less than 24 Consecutive Hours (ICD-10-PCS; 2020-07-28)
PROC: 0BH17EZ Insertion of Endotracheal Airway into Trachea, Via Natural or Artificial Opening (ICD-10-PCS; 2020-07-28)
DX: A41.9 Sepsis, unspecified organism (principal); R65.21 Severe sepsis with septic shock; I21.4 Non-ST elevation (NSTEMI) myocardial infarction; G92 Toxic encephalopathy; K72.00 Acute and subacute hepatic failure without coma; J96.01 Acute respiratory failure with hypoxia; G81.91 Hemiplegia, unspecified affecting right dominant side; N39.0 Urinary tract infection, site not specified; N17.9 Acute kidney failure, unspecified; M62.82 Rhabdomyolysis; E87.2 Acidosis; D68.9 Coagulation defect, unspecified; E87.1 Hypo-osmolality and hyponatremia; Z20.822 Contact with and (suspected) exposure to COVID-19; E16.2 Hypoglycemia, unspecified; Z66 Do not resuscitate; E87.5 Hyperkalemia; E66.9 Obesity, unspecified; D72.829 Elevated white blood cell count, unspecified; N18.9 Chronic kidney disease, unspecified; E87.8 Other disorders of electrolyte and fluid balance, not elsewhere classified; Z86.73 Personal history of transient ischemic attack (TIA), and cerebral infarction without residual deficits; Z79.899 Other long term (current) drug therapy; Z79.891 Long term (current) use of opiate analgesic; Z79.01 Long term (current) use of anticoagulants; Z68.34 Body mass index [BMI] 34.0-34.9, adult
CPT/HCPCS: 36415; 36600; 70450; 70496; 70498; 71045; 71250; 74176; 76770; 80048; 80053; 80061; 80074; 80076; 81001; 82140; 82550; 82570; 82805; 82962; 83036; 84100; 84156; 84165; 84166; 84484; 85007; 85025; 85027; 85610; 85730; 86021; 86038; 86160; 86334; 86706; 86803; 86850; 86900; 86901; 87040; 87086; 93005; 93306; 94002; 94003; 96365; 96375; G0378; J0171; J0610; J0692; J1265; J1644; J1720; J1815; J2370; J2543; J3370; J7030; J7042; J7050; J7070; J7120; Q9967; U0003